=== PATIENT | male | born 1940 | race Caucasian/White ===

== ENCOUNTER 2016-11-23 18:53 | Emergency (ER) | payer OTHER ==
[~2016-11-23] VITALS: Ht 180.3 cm; Wt 107.2 kg
[~2016-11-23 18:53] MED LIST: BIMA0.01 OPB; FINA5TAB PO; LISI-729 PO; TAMS0.4C38 PO; VGMOPS OP
[2016-11-23 19:00] VITALS: TEMP 36.7; Ht 180.3 cm; Wt 107.2 kg
--- NOTE | 2016-11-23 19:56 | EMERGENCY ROOM VISIT NOTE ---
ED Visit Note First contact with patient: 19:16 I have seen and examined this patient with Aubrey Tipton and generally agree with the treatment plan as discussed. 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 (PCP) Patient Instructions My [facility]
--- NOTE | 2016-11-23 20:00 | DIAGNOSTIC IMAGING REPORT ---
RIGHT SHOULDER MIN 2 VIEWS ROUTINE CLINICAL HISTORY: Right shoulder pain following fall. COMPARISON: None FINDINGS: Alignment of the right shoulder is anatomic. There is moderate AC joint arthritis and mild glenohumeral joint arthritis. Irregularity of the greater tuberosity is likely chronic. No acute fracture is identified. A few small nodular densities projecting over the right lung are likely benign and may be calcified. IMPRESSION: 1. No acute fracture or dislocation of the right shoulder. 2. Moderate arthritis of the acromioclavicular joint and mild arthritis of the glenohumeral joint. Electronically signed by: Sandeep Knight M.D. 11/23/2016 7:59 PM Dictated Date/Time: 11/23/2016 7:57 PM
--- NOTE | 2016-11-23 20:10 | EMERGENCY ROOM VISIT NOTE ---
ED Visit Note First contact with patient: 19:16 CHIEF COMPLAINT: Right shoulder pain after a fall today HISTORY OF PRESENT ILLNESS: Patient is a [id number] 76-year-old white male brought to the emergency department by his family for evaluation of right shoulder pain after he fell a couple of hours ago. He was walking up the ramp to his porch when he states that he lost his balance and fell. He landed, striking his nose on his lip and his right shoulder. He did not lose consciousness. He complains of pain in the right upper arm, that is worse with any attempts at movement. He did not take any medication, nor perform any intervention for his symptoms. He had bleeding from the right bottom lip which has subsequently been controlled. There is no epistaxis. He denies headache. No neck pain, lightheadedness, dizziness, difficulty with balance, speech or coordination. The patient had to be helped up by his son. He rates his shoulder pain and 8/10. REVIEW OF SYSTEMS: Review of systems as per HPI. All other systems reviewed were negative. At least 6 systems reviewed. PMH: Electronic medical records are reviewed and summarized as above/below. See Problem List. SOCIAL HISTORY: Patient lives at home. Former smoker. PHYSICAL EXAM: Vital Signs: Reviewed nurse's notes. CONSTITUTIONAL: Patient is a pleasant, well-appearing 76-year-old white male who is awake and alert and in no acute distress. HEENT: Normocephalic, atraumatic. Pupils equal, round, reactive to light and accommodation. EOMs intact without nystagmus. Sclera are anicteric. Tympanic membranes intact, with normal landmarks. External canals are clear. Oral and nasopharynx are clear. Mucous membranes are moist. He has a slight area of ecchymosis and a small, nonrepairable split in the right bottom lip. HEART: Regular rate and rhythm. LUNGS: Clear to auscultation. MUSCULOSKELETAL: Examination of the right shoulder does not demonstrate any obvious deformity. Skin is intact without ecchymosis, erythema or abrasion. There is no pain over the clavicle or the acromioclavicular joint. He does not have any pain over the rotator cuff insertion. His pain is actually more in the proximal humerus region, around the neck. He has pain with passive internal and external rotation, and any attempt at forward flexion or abduction. Elbow is nontender. No effusion is palpable. He can flex, extend, pronate and supinate fully without difficulty. No wrist tenderness to palpation. The right upper extremity is neurovascularly intact. EMERGENCY DEPARTMENT COURSE: X-rays of the right shoulder were obtained and negative for any acute fracture. Degenerative changes were noted. Patient was fitted with an arm sling to use just as needed for comfort. Gentle range of motion exercises were encouraged to minimize the risk of developing a frozen shoulder. He was encouraged to ice, and use [id number] medications for discomfort. He can follow-up with orthopedics if he does not feel that his symptoms are improving. Differential diagnosis includes contusion, fracture, dislocation, bursitis, tendinitis, among others. RIGHT SHOULDER MIN 2 VIEWS ROUTINE CLINICAL HISTORY: Right shoulder pain following fall. COMPARISON: None FINDINGS: Alignment of the right shoulder is anatomic. There is moderate AC joint arthritis and mild glenohumeral joint arthritis. Irregularity of the greater tuberosity is likely chronic. No acute fracture is identified. A few small nodular densities projecting over the right lung are likely benign and may be calcified. IMPRESSION: 1. No acute fracture or dislocation of the right shoulder. 2. Moderate arthritis of the acromioclavicular joint and mild arthritis of the glenohumeral joint. 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 Surgical Problems: (1) Amputation Finger Status: Resolved (2) Lens Replacement Nec Status: Resolved Current/Historical Medications Scheduled Finasteride (Proscar), 5 MG PO HS Lisinopril (Prinivil), 5 MG PO HS Tamsulosin Hcl (Flomax), 0.4 MG PO HS Scheduled PRN Diphenhydramine Hcl (Benadryl), 50 MG PO Q4H PRN for ALLERGIC REACTION Allergies Coded Allergies: No Known Allergies (Unverified , 11/23/16) Vital Signs Date Time Temp Pulse Resp B/P Pulse Ox O2 Delivery O2 Flow Rate FiO2 11/23/16 19:00 36.7 82 18 178/66 95 Room Air Departure Information Impression Primary Impression: Contusion of right shoulder Additional Impression: Fall Referrals Leon De Paz, D.O. (PCP) Patient Instructions [facility] Additional Instructions Ibuprofen(Motrin, Advil) may be used for fever or pain. Use 600mg every six hours as needed. Take with food. Avoid using more than 2400mg in a 24 hour period. Do not use 2400mg per day for more than three consecutive days without physician direction. Prolonged inappropriate use can lead to stomach upset or ulcers. This medication can be taken if you need to drive, work, or perform activities which may be dangerous when taking narcotic pain medication. (AND/OR) Acetaminophen(Tylenol) may be used for fever or pain. Use 1000mg every six hours as needed. Avoid using more than 3000mg in a 24 hour period. This medication can be taken if you need to drive, work, or perform activities which may be dangerous when taking narcotic pain medication. Ice compresses for 20 minutes at a time four times daily for 2-3 days. Use the sling as instructed. Remove your arm from the sling 4-6 times a day and move all the joints around to keep them loose. Rest and elevate your injury. Continue current medications. Return to the ER immediately for any numbness, tingling, severe pain, extreme swelling in the extremity or as needed. Follow-up with your primary care provider or with orthopedics if your symptoms are not improving in 5-7 days. Problem Qualifiers
[2016-11-23] MEDS ORDERED: BND25 PO (20:21)
[2016-11-23 20:47] VITALS: BP 168/65; PULSE 78; O2SAT 96
[2017-01-16] MEDS ORDERED: LISI-725 PO (10:34)
[2017-01-16] MEDS ORDERED: IBUP-103 PO (10:35)
[2017-01-26] MEDS ORDERED: RXC5 PO (08:53)
== END 2016-11-23 20:48 | disposition home or self-care (01) ==
LOC: C.EDB 18:53 → C.EDD 20:48
DX: S40.011A Contusion of right shoulder, initial encounter (principal); W01.0XXA Fall on same level from slipping, tripping and stumbling without subsequent striking against object, initial encounter; Y92.019 Unspecified place in single-family (private) house as the place of occurrence of the external cause; I10 Essential (primary) hypertension; Z89.029 Acquired absence of unspecified finger(s); Z98.49 Cataract extraction status, unspecified eye; Z79.899 Other long term (current) drug therapy; Z87.891 Personal history of nicotine dependence

== ENCOUNTER → 2017-01-02 | Outpatient (CLI) | payer OTHER ==
[~2017-01-02] MED LIST changes: -BIMA0.01 OPB; +BND25 PO; +IBUP-103 PO; +LISI-725 PO; +RXC5 PO; -VGMOPS OP
--- NOTE | 2017-01-02 10:23 | DIAGNOSTIC IMAGING REPORT ---
ORBIT RADIOGRAPHS 3 VIEWS HISTORY: Pre-MRI pre-MRI screening. COMPARISON: None. FINDINGS: There are no radiopaque foreign bodies identified within the orbits. IMPRESSION: No radiopaque foreign bodies identified within the orbits. Electronically signed by: Ab Titus M.D. 01/02/2017 10:21 AM Dictated Date/Time: 01/02/2017 10:21 AM
--- NOTE | 2017-01-02 12:12 | DIAGNOSTIC IMAGING REPORT ---
MRI right shoulder RIGHT UPPER EXT JOINT WITHOUT CLINICAL HISTORY: R SHOULDER PAIN Right trauma. Pain. TECHNIQUE: MRI multi axial acquisition COMPARISON STUDY: None FINDINGS: Compromise exam due to significant patient motion. A joint effusion is present. Mild edematous changes seen lateral aspect humeral head deep to the supraspinatus tendon insertion. There is evidence for full-thickness rotator cuff tear involving the supraspinatus tendon. Musculotendinous retraction of approximately 4 cm. There are moderate hypertrophic changes of the acromioclavicular joint. There is a partial tear of the subscapularis tendon. Considerable tendinopathy is present. Infraspinatus tendon shows mild tendinopathy. Evaluation of the labrum is problematic again due to patient motion. There is loss of substance of the posterior glenoid labrum with significant deterioration of the superior margin of the labrum. Inferior labrum also shows partial truncation. There is moderate superior migration of the humeral head relation to the acromion. IMPRESSION: 1. Somewhat limited exam due to considerable patient motion. 2. Full-thickness tear supraspinatus tendon with 4 cm musculotendinous retraction. 3. Moderate superior migration of the femoral head now in contact with the inferior surface of the acromion. 4. Partial thickness tear subscapularis tendon. 5. Mild tendinopathy of the infraspinatus tendon. 6. Deterioration of the glenoid labrum with substance loss posteriorly and considerable deterioration of the anterior and to a lesser extent inferior labral services Electronically signed by: Ab Titus M.D. 01/02/2017 12:11 PM Dictated Date/Time: 01/02/2017 12:05 PM
== END | disposition home or self-care (01) ==
LOC: C.RADBC 09:46
PROVIDERS: ATTEND Orthopaedic Surgery
DX: M75.101 Unspecified rotator cuff tear or rupture of right shoulder, not specified as traumatic (principal)

== ENCOUNTER 2017-01-25 06:45 | Inpatient (IN) | payer OTHER ==
[2017-01-16 10:36] VITALS: BMI 32.0
--- NOTE | 2017-01-16 11:17 | PAT Medication Instructions ---
Service Date Jan 16, 2017. Current Home Medication List Diphenhydramine Hcl (Benadryl), 50 MG PO Q4H PRN for ALLERGIC REACTION Finasteride (Proscar), 5 MG PO HS Ibuprofen Tab (Advil), 200-400 MG PO PRN Lisinopril (Zestril), 20 MG PO QPM Tamsulosin Hcl (Flomax), 0.4 MG PO HS Medication Instructions For Your Scheduled Surgery - Hold the following medications evening prior to surgery: Lisinopril (Zestril), 20 MG PO QPM - Hold the following medications the morning of surgery: Diphenhydramine Hcl (Benadryl), 50 MG PO Q4H PRN for ALLERGIC REACTION Ibuprofen Tab (Advil), 200-400 MG PO PRN (takes occasionally) - Take the following medications as scheduled the night before surgery: Tamsulosin Hcl (Flomax), 0.4 MG PO HS Finasteride (Proscar), 5 MG PO HS Diphenhydramine Hcl (Benadryl), 50 MG PO Q4H PRN for ALLERGIC REACTION If you have any questions please call us at [phone] or [phone] ( [place]) or [phone]
[2017-01-16 12:09] LABS: BASO % 0.7 %; BASO ABS # 0.05 K/uL (0-0.2); COMPLETE YES; EOS % 3.3 %; HEMATOCRIT 44.2 % (42-52); IG% 0.3 %; LYMPH % 26.2 %; LYMPH ABS # 1.85 K/uL (1.2-3.4); MEAN CORPUSCULAR HEMOGLOBIN 31.4 pg (25-34); MEAN CORPUSCULAR HGB CONC 34.8 g/dl (32-36); MONO % 6.6 %; NEUT % 62.9 %; PLATELET COUNT 155 K/uL (130-400); RED BLOOD COUNT 4.91 M/uL (4.7-6.1); WHITE BLOOD COUNT 7.07 K/uL (4.8-10.8)
[2017-01-16 12:20] LABS: PARTIAL THROMBOPLASTIN RATIO 1.1; PROTHROMBIN TIME (PATIENT) 10.7 SECONDS (9.0-12.0)
--- NOTE | 2017-01-16 12:20 | DIAGNOSTIC IMAGING REPORT ---
CHEST 2 VIEWS ROUTINE CLINICAL HISTORY: Preoperative chest COMPARISON STUDY: No previous studies for comparison. FINDINGS: The heart is at the upper limits of normal in size. There is no failure. There is no lobar consolidation. There are no pleural effusions. There is a 7 mm rounded density at the left lung base. While nonspecific, this likely represents a summation or postinflammatory nodule.[ IMPRESSION: Nonspecific 7 mm opacity at the left lung base, likely are presenting a summation or postinflammatory nodule. A three-month follow-up chest x-ray would seem prudent Electronically signed by: Laith Rai M.D. 01/16/2017 12:19 PM Dictated Date/Time: 01/16/2017 12:17 PM
[2017-01-16 12:27] LABS: BUN/CREATININE RATIO 15.3 (10-20); CREATININE 1.2 mg/dl (0.60-1.40); POTASSIUM 4.2 mmol/L (3.5-5.1)
[2017-01-16 12:36] LABS: URINE APPEARANCE CLEAR (CLEAR); URINE BILIRUBIN NEG (NEG); URINE COLOR YELLOW; URINE NITRITE NEG (NEG); URINE SPECIFIC GRAVITY 1.024 (1.000-1.030); UROBILINOGEN NEG (NEG)
[2017-01-16 13:00] LABS: MANUAL MICROSCOPIC REQUIRED? NO; REVIEW REQ? NO
--- NOTE | 2017-01-24 15:16 | HISTORY & PHYSICAL EXAMINATION ---
DATE OF ADMISSION: 01/25/2017 CHIEF COMPLAINT: Cuff arthropathy of the right shoulder. HISTORY OF PRESENT ILLNESS: Milton is a pleasant 76-year-old male who initially injured his shoulder several years ago. He had little pain at that time. Unfortunately, on 11/23/2016 he reinjured his shoulder after a fall. He has had the inability to raise his arm and significant pain in his shoulder. Initial conservative treatment was not helping. MRI of the shoulder did show a chronic retracted rotator cuff tear with severe atrophy of the muscle bellies. He has elected to proceed with a reverse right shoulder arthroplasty. He understands the risks, benefits, alternatives to the procedure and has elected to proceed. PAST MEDICAL HISTORY: Significant for hypertension and osteoarthritis. MEDICATIONS: Include Zestril 20 mg daily, Proscar 5 mg daily, and Flomax 0.4 mg daily. PAST SURGICAL HISTORY: Significant for 5 hernia repairs and hand surgery requiring small amputation of 3 of his fingers. ALLERGIES: None. FAMILY HISTORY: Noncontributory. SOCIAL HISTORY: He denies any tobacco, alcohol or IV drug use. REVIEW OF SYSTEMS: He complains of right shoulder pain. All other pertinent review of systems are negative. PHYSICAL EXAMINATION: GENERAL: He is awake, alert and oriented x3. He is in no apparent distress. He is very pleasant. HEAD, EYES, EARS, NOSE, AND THROAT: Pupils equal, round and reactive to light. Extraocular motion intact. Oral mucosa is pink and moist. HEART: Regular rate per radial pulse. LUNGS: Lamar symmetrically bilaterally with no audible breath sounds. ABDOMEN: Soft, nontender, nondistended. MUSCULOSKELETAL: On physical examination of his shoulder, he has only about 30 degrees of forward elevation, 30 degrees of abduction. He has 3/5 muscle strength with external rotation and I am unable to do full can testing with him because of his pain. He has a lot of tenderness to palpation in the subacromial space. X-rays of the right shoulder show the humeral head generally well located within the glenoid with minimal arthritis. MRI of the right shoulder shows a massive rotator cuff tear involving the supraspinatus, infraspinatus and part of the subscapularis. There is severe atrophy of the muscle bellies. IMPRESSION: Cuff arthropathy of the right shoulder. PLAN: Will proceed with a comprehensive right reverse total shoulder arthroplasty. Postoperatively, he will be placed in an arm sling and kept overnight for postoperative medical management. MTDD
[~2017-01-25] VITALS: Ht 180.3 cm; Wt 106.0 kg
[2017-01-25] VITALS (8 sets, daily range): BP systolic 129–172; BP diastolic 76–86; PULSE 62–96; TEMP 36.4–36.7; O2SAT 92–97; Ht 180.3 cm; Wt 106.0 kg
[~2017-01-25 06:45] MED LIST changes: +ACETAMINOPHEN 500 MG TAB PO SCH; -BND25 PO; +BUPIVACAINE 0.5 % 5 MG/1 ML PF 10ML VIAL ONE; +CEFAZOLIN 2000 MG/60 ML D5W 60 ML IV SCH; +CLONIDINE HCL 100 MCG/ML SYRINGE ONE; +DIPH25CA5 PO; +FAMOTIDINE 20 MG TAB PO SCH; +GABAPENTIN 300 MG CAP PO SCH; +LACTATED RINGER'S 1000ML 1,000 ML IV SCH; +LACTATED RINGER'S 1000ML IV SCH; -LISI-729 PO; +MEPIVACAINE HCL 1.5% 30 ML VIAL ONE; +ROPIVACAINE 5MG/ML 30 ML 150 MG, BUPIVACAINE/EPINEPHR 0.5% MPF 30 ML, KETOROLAC TROMETH... INFIL SCH; -RXC5 PO
--- NOTE | 2017-01-25 07:05 | History & Physical Bridge Note ---
H&P Re-Evaluation Bridge Note: I have examined the patient, reviewed the History & Physical and in the interval since the performance of the History & Physical I have noted the following changes of clinical significance: No changes noted
[2017-01-25] MEDS ORDERED: ROCURONIUM BROMIDE 10 MG/ML 5 ML VIAL ONE ×3 (07:58→11:04)
[2017-01-25] MEDS ORDERED: MIDAZOLAM HCL 1 MG/ML 2ML VIAL ONE ×3 (07:58→09:29)
[2017-01-25] MEDS ORDERED: FENTANYL CITRATE INJ 50 MCG/1 ML 2 ML VIAL ONE ×4 (07:58→12:13)
[2017-01-25] MEDS ORDERED: LIDOCAINE HCL 2% 2 ML VIAL (20MG/ML) ONE ×2 (07:58→09:29)
[2017-01-25] MEDS ORDERED: PROPOFOL IV EMULSION 10 MG/ML 20 ML VIAL IV ONE ×2 (07:58→09:29)
[2017-01-25] MEDS ORDERED: PHENYLEPHRINE 100MCG/ML 5ML SYR ONE ×2 (08:38→10:33)
[2017-01-25] MEDS ORDERED: ORTHO JOINT ANESTHETIC ONE (09:18)
[2017-01-25] MEDS ORDERED: BACITRACIN 50000 UNIT VIAL ONE (09:19)
[2017-01-25] MEDS ORDERED: DEXAMETHASONE SOD INJ 4 MG/ML VIAL ONE (09:29)
[2017-01-25] MEDS ORDERED: NEOSTIGMINE METHYLSULFATE 5 MG/5 ML SYR ONE (09:29)
[2017-01-25] MEDS ORDERED: GLYCOPYRROLATE INJ 0.2 MG/ML VIAL ONE ×2 (09:29→11:40)
[2017-01-25] MEDS ORDERED: ONDANSETRON INJ 2 MG/ML 2 ML VIAL ONE (09:29)
[2017-01-25] MEDS: TRANEXAMIC ACID INJ 1,000 MG in SODIUM CHLORIDE 0.9% 100ML 100 ML IV SCH ×2 (09:30→13:48)
[2017-01-25] MEDS ORDERED: LARYING-O-JET KIT (LTA) EXT ONE ×2 (09:34)
[2017-01-25] MEDS ORDERED: FLUMAZENIL 0.1 MG/1 ML 10 ML VIAL IV PRN (10:15)
[2017-01-25] MEDS ORDERED: ONDANSETRON INJ 2 MG/ML 2 ML VIAL IV PRN ×2 (10:15→11:30)
[2017-01-25] MEDS ORDERED: ALBUTEROL 0.083% NEBU SOLN 3 ML VIAL INH PRN (10:15)
[2017-01-25] MEDS ORDERED: EpHEDrine SULFATE INJ 50 MG/ML AMP IV PRN (10:15)
[2017-01-25] MEDS ORDERED: ATROPINE SULFATE 0.1 MG/ML 5ML SYR IV PRN (10:15)
[2017-01-25] MEDS ORDERED: NALOXONE HCL 0.4 MG/1 ML VIAL/CARP IV PRN ×2 (10:15→11:30)
[2017-01-25] MEDS ORDERED: PROMETHAZINE HCL INJ 12.5 MG in SODIUM CHLORIDE 0.9% 50ML 50 ML IV PRN (10:15)
[2017-01-25] MEDS ORDERED: LABETALOL HCL IV 5 MG/ML 20ML IV PRN (10:15)
[2017-01-25] MEDS ORDERED: EpHEDrine SULFATE 50MG/5ML SYR ONE (10:33)
--- NOTE | 2017-01-25 11:29 | [facility] Post Operative Brief Note ---
Immediate Operative Summary Operative Date Jan 25, 2017. Pre-Operative Diagnosis Cuff arthropathy of the right shoulder. Post-Operative Diagnosis Cuff arthropathy of the right shoulder. Procedure(s) Performed Right Total Shoulder Arthroplasty Reverse Surgeon Dr. Griggs Sr. Strategic Sourcing Manager Surgeon(s) Kwame Mcmahan PA-C Estimated Blood Loss 250 cc Findings as above Specimens A: Right humeral head Complication(s) None Disposition Recovery Room / PACU
[2017-01-25] MEDS ORDERED: METOCLOPRAMIDE HCL INJ 5 MG/ML 2 ML VIAL IV PRN (11:30)
[2017-01-25] MEDS ORDERED: BISACODYL 10 MG SUPP PR PRN (11:30)
[2017-01-25] MEDS ORDERED: MoRPHine SULFATE 2 MG/ML CARP IV PRN (11:30)
[2017-01-25] MEDS ORDERED: SOD PHOSPHATE/SOD BIPHOSPHATE ENEMA 132 ML BTL PR PRN (11:30)
[2017-01-25] MEDS ORDERED: MAGNESIUM HYDROXIDE SUSP 30 ML UDC PO PRN (11:30)
--- NOTE | 2017-01-25 12:22 | OPERATIVE REPORT ---
DATE OF OPERATION: 01/25/2017 PREOPERATIVE DIAGNOSIS: Rotator cuff arthropathy of the right shoulder. POSTOPERATIVE DIAGNOSIS: Same. PROCEDURE: Reverse right total shoulder arthroplasty. SURGEON: Dr. Daryn Griggs. GRAIN LOADER: Kwame Mcmahan PA-C, whose assistance was necessary for positioning the arm and helping with instrumentation. ANESTHESIA: General with a right interscalene nerve block. COMPLICATIONS: None. CONDITION: Stable to PACU. IMPLANTS USED: I used a [employer] comprehensive reverse right total shoulder arthroplasty with a size 16 mini stem, a 25-mm mini baseplate, a 36-mm standard eccentric glenoid, a 41-mm tray and a 41 x 36 bearing. No cement was used during the case. INDICATIONS: Milton is a pleasant 76-year-old male who has been dealing with some chronic shoulder pain. Unfortunately, he fell and he has been unable to forward elevate his shoulder. MRI and clinical examination were diagnostic for cuff arthropathy of the right shoulder. After failing conservative treatment, he elected to undergo a reverse shoulder arthroplasty. DESCRIPTION OF PROCEDURE: On 01/25/2017, he arrived at [facility] for the above procedure. He was seen in the preoperative holding area and the operative extremity was identified and signed. He was given a preoperative antibiotic and a right interscalene nerve block. He was taken back to the operating room, laid on the table in supine position and put under general anesthesia. He was then put into the beach chair position. The right shoulder was prepped and draped in sterile fashion. Time-out was done and the patient and operative extremity was properly identified. A deltopectoral approach was used. Dissection was taken down through the fascia and the anterior shoulder was exposed. The subscapularis was tenotomized off the lesser tuberosity and the shoulder was dislocated. A canal finding reamer was sent down the center of the humeral canal. Sequential reaming up to a size 16 reamer was done. Off that reamer, a proximal humeral resection guide was placed and the proximal humerus was resected at 135 degrees of inclination and 20 degrees of retroversion. The glenoid was then exposed. Time was spent doing a complete circumferential capsular and labral release. A guide pin was then placed in the inferior position of the glenoid at 10 degrees of inclination. A 25-mm mini baseplate was then reamed. The final baseplate was then impacted into place. A 45-mm central screw was placed followed by two 35-mm peripheral locking screws. All screws had excellent bite. A 36-mm eccentric glenosphere was then impacted into place. The proximal humerus was then exposed. Sequential broaching up to a size 16 broach was done. A standard humeral tray was used. The shoulder was reduced, brought through a full range of motion and felt to be stable. The broach was removed. The final humeral stem was impacted into place. The humeral bearing was snapped into the humeral tray and the ring lock mechanism was engaged. The humeral tray was then snapped onto the humeral stem. The shoulder was then reduced, brought through a full range of motion and felt to be stable. The wound was then irrigated with 3 liters of normal saline solution with bacitracin. Surrounding soft tissues were injected with 100 mL of orthopedic pain control cocktail. The subscapularis was then tenodesed back to the lesser tuberosity with transosseous FiberWire sutures and [id number] sutures. The axillary nerve was palpated and intact. A drain was placed. Skin was closed with 2-0 Vicryl, 3-0 V-Loc suture and a Prineo dressing. He was then placed in a soft dressing and regular arm sling. He was then extubated, transferred to a litter and taken to the postanesthesia care unit in stable condition. He tolerated the procedure well. I attest to the content of the Intraoperative Record and any orders documented therein. Any exceptio ns are noted below.
--- NOTE | 2017-01-25 12:27 | DIAGNOSTIC IMAGING REPORT ---
RIGHT SHOULDER MIN 2 VIEWS ROUTINE CLINICAL HISTORY: Post shoulder surgery Right COMPARISON STUDY: Right shoulder 11/23/2016. FINDINGS: Interval placement of a reverse right total shoulder arthroplasty. The hardware appears intact. No fracture or dislocation. Surgical drain is in place. IMPRESSION: Status post reverse right total shoulder arthroplasty. No evidence for hardware complication. Electronically signed by: Jakob Cruz M.D. 01/25/2017 12:25 PM Dictated Date/Time: 01/25/2017 12:25 PM
--- NOTE | 2017-01-25 12:29 | Anesthesiology Progress Note ---
Anesthesia Post Op Note Date & Time Jan 25, 2017 at 12:28 Vital Signs Pain Intensity: 0 Vital Signs Past 12 Hours Date Time Temp Pulse Resp B/P Pulse Ox O2 Delivery O2 Flow Rate FiO2 01/25/17 12:20 136/85 01/25/17 12:18 87 16 93 01/25/17 12:18 87 16 01/25/17 12:16 143/74 01/25/17 12:13 89 21 01/25/17 12:13 87 21 95 01/25/17 12:12 89 18 01/25/17 12:12 89 18 93 01/25/17 12:10 141/80 01/25/17 12:07 94 20 01/25/17 12:07 93 20 94 01/25/17 12:05 155/88 01/25/17 12:02 94 22 141/77 95 01/25/17 12:02 94 22 01/25/17 11:58 153/83 01/25/17 11:57 101 19 01/25/17 11:57 36.1 98 18 153/83 96 Mask 10 01/25/17 11:57 101 19 96 01/25/17 09:25 36.7 75 18 168/87 99 Mask 10 01/25/17 07:32 36.7 62 18 172/83 97 Room Air 01/25/17 07:32 36.7 62 18 172/83 97 Room Air Notes Mental Status: alert / awake / arousable, participated in evaluation Pt Amnestic to Procedure: Yes Nausea / Vomiting: adequately controlled Pain: adequately controlled Airway Patency, RR, SpO2: stable & adequate BP & HR: stable & adequate Hydration State: stable & adequate Anesthetic Complications: no major complications apparent
[2017-01-25] MEDS: D5W AND 1/2NSS + 20MEQ KCL 1,000 ML IV SCH ×2 (14:16→23:52)
[2017-01-25] MEDS: KETOROLAC TROMETHAMINE 15 MG/ML VIAL IV. SCH ×2 (16:06→22:21)
[2017-01-25] MEDS: OXYCODONE HCL IR 5 MG TAB (IMMEDIATE RELEASE) PO PRN ×2 (16:07→20:35)
[2017-01-25] MEDS: CEFAZOLIN IV 2,000 MG in DEXTROSE 5% 50ML 50 ML IV SCH (17:59)
[2017-01-25] MEDS: DOCUSATE SODIUM 100 MG CAP PO SCH (20:36)
[2017-01-25] MEDS ORDERED: TAMSULOSIN HCL 0.4 MG CAP PO SCH (21:00)
[2017-01-25] MEDS ORDERED: SENNA 8.6 MG TAB PO SCH (21:00)
[2017-01-25] MEDS ORDERED: FINASTERIDE 5 MG TAB PO SCH (21:00)
[2017-01-25] MEDS ORDERED: LISINOPRIL 20 MG TAB PO SCH (21:00)
[2017-01-25] MEDS: ACETAMINOPHEN IV 1,000 MG in EMPTY BAG 0 ML IV SCH (22:22)
[2017-01-26] MEDS: CEFAZOLIN IV 2,000 MG in DEXTROSE 5% 50ML 50 ML IV SCH (02:12)
[2017-01-26] MEDS: KETOROLAC TROMETHAMINE 15 MG/ML VIAL IV. SCH ×2 (03:45→10:00)
[2017-01-26 04:00] VITALS: BP 133/66; PULSE 61; TEMP 36.5; O2SAT 97
[2017-01-26] MEDS: ACETAMINOPHEN IV 1,000 MG in EMPTY BAG 0 ML IV SCH (05:31)
[2017-01-26 05:44] LABS: HEMATOCRIT 38.1 % (42-52); MEAN CORPUSCULAR HEMOGLOBIN 31.3 pg (25-34); MEAN PLATELET VOLUME 10.2 fL (7.4-10.4); PLATELET COUNT 157 K/uL (130-400); RED BLOOD COUNT 4.38 M/uL (4.7-6.1); WHITE BLOOD COUNT 15.17 K/uL (4.8-10.8)
[2017-01-26 06:09] LABS: BUN/CREATININE RATIO 11.2 (10-20); CALCIUM 8.1 mg/dl (8.5-10.1); CREATININE 1.2 mg/dl (0.60-1.40); POTASSIUM 4.3 mmol/L (3.5-5.1)
[2017-01-26 07:44] VITALS: BP 145/67; PULSE 63; TEMP 36.4; O2SAT 97
[2017-01-26] MEDS: DOCUSATE SODIUM 100 MG CAP PO SCH (08:37)
[2017-01-26] MEDS ORDERED: RXC5 PO (08:53)
--- NOTE | 2017-01-26 08:54 | Discharge Instructions ---
Discharge Instructions Date of Service Jan 26, 2017. Admission Reason for Admission: Right Shoulder Full Thickness Rotator Cuff Tear Discharge Discharge Diagnosis / Problem: Right Reverse Total Shoulder Discharge Goals Goal(s): Decrease discomfort, Improve function Activity Recommendations Activity Limitations: as noted below Shower/Bathe: may shower/bathe in 3 days . Instructions / Follow-Up Instructions / Follow-Up Activity and Therapy Recommendations: * Wear your sling for 3 weeks, unless otherwise instructed. You may remove your sling to shower and to dress, but otherwise, you should be in your sling at all times, including while sleeping * The shoulder replacement is very stable and you can use your hand while in the sling * Physical Therapy should start about 3-5 days from your day of surgery. Therapy will last about 8-12 weeks * You were shown a series of exercises in the hospital. Do these exercises daily including the exercises you were shown in physical therapy. Medications: * Narcotic You will likely be sent home from the hospital with a prescription for the narcotic pain medication that worked best throughout your stay. * Other medications may be prescribed for specific circumstances. If you have any questions, please call the office at . * Resume previous home medications unless otherwise instructed Dressing Care: You will likely have a Prineo dressing covering your incision. This looks like a glued on clear mesh dressing. Do not remove this dressing until you follow- up in my office in 2-3 weeks. Its pretty hard to peel it off. You may leave the Prineo dressing uncovered or cover it if it is draining a little bit. No further dressing care is required Showering: You may shower 3 days from the day of surgery. Leave the Prineo dressing intact and let the soapy shower water run over it. Do not scrub or soak the dressing or the incision. Things To Watch For: * Drainage from the incision site that occurs more than one week after your surgery. * Increased redness at the incision site. * Fever above 102 degrees Fahrenheit. * Unusual chest pain or shortness of breath. * Call [facility] at with any of the above problems Follow-Up Visit: Follow-up with Dr. Griggs 2-3 weeks after your day of surgery. An appointment was probably scheduled when you signed-up for surgery in the office. If you have any questions call Office Instructions: More detailed instructions as well as Frequently Asked Questions were provided in a folder by our office when you signed-up for surgery. Please review these instructions when you get home. If you have any further questions or concerns, please feel free to call the office at [phone] Current Hospital Diet Patient's current hospital diet: Regular Diet Discharge Diet Recommended Diet: Regular Diet Procedures Procedures Performed: Right Total Shoulder Arthroplasty Reverse Pending Studies Studies pending at discharge: no Medical Emergencies . Who to Call and When: Medical Emergencies: If at any time you feel your situation is an emergency, please call 911 immediately. . Non-Emergent Contact Non-Emergency issues call your: Surgeon Call Non-Emergent contact if: wound has increased drainage, wound has increased redness . "Provider Documentation" section prepared by Daryn Griggs. VTE Core Measure Inpt VTE Proph given/why not?: Treatment not indicated
[2017-01-26] MEDS ORDERED: PANTOprazole SOD 40 MG TAB PO SCH (09:00)
--- NOTE | 2017-01-26 09:18 | PROGRESS NOTE ---
DATE: 01/26/2017 DATE: 01/26/2017. CHIEF COMPLAINT: Status post reverse right total shoulder arthroplasty postop day #1. PROGRESS: Milton was seen and examined at bedside today. Overall, he is doing very well. He was sitting up at bedside eating breakfast. He said he was not having much pain at all in the shoulder. He is happy with his progress and has no complaints. PHYSICAL EXAMINATION: RIGHT SHOULDER: The dressing is clean and dry and the drain is to suction. His radial, median and ulnar nerves were checked and intact. His axillary nerve was not checked yet. He is wearing his sling as instructed. LABORATORY DATA: He has an H\T\H today of 13.7 and 38.1. His glucose is 161. His vital signs are all stable on room air and he is voiding on his own. X-RAYS: Radiographs postoperatively of the right shoulder show the prosthesis to be in anatomic alignment without any evidence of fracture, dislocation or loosening. IMPRESSION: Status post reverse right total shoulder arthroplasty postop day #1. PLAN: At this point, he is doing as well as expected. He will be seen by physical therapy this morning and do hand, wrist, elbow and pendulum exercises. The nursing staff will change the dressing, pull the drain and as long as he is doing well, he will be discharged to home later this morning.
--- NOTE | 2017-01-26 09:38 | DISCHARGE SUMMARY ---
DISCHARGE DIAGNOSIS: Cuff arthropathy of the right shoulder. PROCEDURE: Reverse right total shoulder arthroplasty on 01/25/[address] Daryn Griggs. DISCHARGE INSTRUCTIONS: 1. Oxycodone 5-10 mg every 4 hours as needed for pain. 2. Benadryl 25 mg every 4 hours as needed for allergies. 3. Proscar 5 mg at night. 4. Advil 200 mg as needed. 5. Zestril 20 mg daily. 6. Flomax 0.4 mg at night. 7. Right arm sling for 3 weeks. 8. Follow up with Dr. Griggs in 2 weeks. 9. Call the office of Dr. Griggs with any questions or concerns. HOSPITAL COURSE: Milton is a pleasant 76-year-old male who presented to my office with complaints of pain and pseudoparalysis of his right upper extremity. MRI and clinical examination were diagnostic for cuff arthropathy of the right shoulder. After failing conservative treatment, he elected to undergo a reverse right shoulder arthroplasty. On 01/25/2017 he arrived at [facility] for the above procedure. He was seen in the preoperative holding area and the operative extremity was identified and signed. He was given a preoperative antibiotic, taken back to the operating room and underwent a reverse right shoulder arthroplasty without complications. He was then placed in an arm sling and discharged to general orthopedic floors. His hospital course was uneventful. On postop day #1, his H\T\H was stable at 13.7 and 38.1. His pain was well controlled. He was seen by physical therapy and able to do hand, wrist, elbow and pendulum exercises. His dressing was changed, his drain was pulled and he was subsequently discharged to home with the above instructions.
[2017-01-26 09:55] VITALS: BP 117/62; PULSE 68; O2SAT 96
[2017-01-26 10:18] VITALS: BP 117/62; PULSE 68; TEMP 36.4; O2SAT 96
[2017-01-26] MEDS: OXYCODONE HCL IR 5 MG TAB (IMMEDIATE RELEASE) PO PRN (10:56)
== END 2017-01-26 11:04 | disposition home or self-care (01) | DRG 483 ==
LOC: ENRESERVDT → ENRESERVTM → C.ACU 06:45 → C.3E 07:45
PROVIDERS: ADMIT Orthopaedic Surgery; ATTEND Orthopaedic Surgery
PROC: 0RRJ00Z Replacement of Right Shoulder Joint with Reverse Ball and Socket Synthetic Substitute, Open Approach (ICD-10-PCS; principal; 2017-01-25 09:30)
DX: M19.011 Primary osteoarthritis, right shoulder (principal); I10 Essential (primary) hypertension; Z79.899 Other long term (current) drug therapy

== ENCOUNTER 2018-01-02 11:44 | Emergency (ER) | payer OTHER ==
[~2018-01-02 11:44] MED LIST changes: -ACETAMINOPHEN 500 MG TAB PO SCH; -BUPIVACAINE 0.5 % 5 MG/1 ML PF 10ML VIAL ONE; -CEFAZOLIN 2000 MG/60 ML D5W 60 ML IV SCH; -CLONIDINE HCL 100 MCG/ML SYRINGE ONE; -FAMOTIDINE 20 MG TAB PO SCH; -GABAPENTIN 300 MG CAP PO SCH; -LACTATED RINGER'S 1000ML 1,000 ML IV SCH; -LACTATED RINGER'S 1000ML IV SCH; -MEPIVACAINE HCL 1.5% 30 ML VIAL ONE; -ROPIVACAINE 5MG/ML 30 ML 150 MG, BUPIVACAINE/EPINEPHR 0.5% MPF 30 ML, KETOROLAC TROMETH... INFIL SCH; +RXC5 PO
[2018-01-02 11:45] VITALS: TEMP 36.8; Ht 180.3 cm
[2018-01-02] MEDS ORDERED: SODIUM CHLORIDE 0.9% 1000ML 1,000 ML IV STA (12:05)
[2018-01-02] MEDS ORDERED: WLLSR150 PO (12:06)
[2018-01-02 12:22] LABS: BASO % 0.6 %; BASO ABS # 0.06 K/uL (0-0.2); EOS % 1.7 %; EOS ABS # 0.17 K/uL (0-0.5); HEMATOCRIT 47.7 % (42-52); HEMOGLOBIN 16.7 g/dL (14.0-18.0); IG# 0.02 K/uL (0.00-0.02); LYMPH % 20.3 %; MEAN CELL VOLUME 90.3 fL (80-100); MEAN CORPUSCULAR HEMOGLOBIN 31.6 pg (25-34); MEAN PLATELET VOLUME 10.8 fL (7.4-10.4); MONO ABS # 0.59 K/uL (0.11-0.59); NEUT % 71.2 %; NEUT ABS # 6.99 K/uL (1.4-6.5); PLATELET COUNT 213 K/uL (130-400); RED CELL DISTRIBUTION WIDTH SD 42.5 fL (36.4-46.3); WHITE BLOOD COUNT 9.83 K/uL (4.8-10.8)
[2018-01-02 12:30] LABS: ALT/SGPT 37 U/L (12-78); BLOOD UREA NITROGEN 23 mg/dl (7-18); CALCIUM 9.1 mg/dl (8.5-10.1); CARBON DIOXIDE 25 mmol/L (21-32); CREATININE 1.48 mg/dl (0.60-1.40); GLUCOSE 104 mg/dl (70-99); LIPASE 174 U/L (73-393); POTASSIUM 3.8 mmol/L (3.5-5.1); SODIUM 141 mmol/L (136-145)
[2018-01-02] MEDS ORDERED: OPTIRAY 320 IV PRN (12:30)
[2018-01-02 12:35] LABS: ALKALINE PHOSPHATASE 80 U/L (45-117); AST/SGOT 20 U/L (15-37); TOTAL PROTEIN 7.6 gm/dl (6.4-8.2)
--- NOTE | 2018-01-02 12:36 | DIAGNOSTIC IMAGING REPORT ---
CHEST ONE VIEW PORTABLE CLINICAL HISTORY: 77 years-old Male presenting with ABDOMINAL PAIN/GI. TECHNIQUE: Portable upright AP view of the chest was obtained. COMPARISON: 01/16/2017. FINDINGS: Atherosclerosis of the aortic arch. Cardiac silhouette top normal in size. Previously noted nodular opacity in the left lung base is no longer visualized, and may have represented a nipple shadow on the prior exam. No new focal opacity. No large effusion or pneumothorax. Reverse total right shoulder arthroplasty. Degenerative changes of the spine. Upper abdomen normal. IMPRESSION: 1. No acute cardiopulmonary disease. This portable examination has a low sensitivity for pulmonary nodule. Electronically signed by: aJson Ramos M.D. 01/02/2018 12:31 PM Dictated Date/Time: 01/02/2018 12:29 PM
--- NOTE | 2018-01-02 15:31 | DIAGNOSTIC IMAGING REPORT ---
Brain MRI WITHOUT CONTRAST HISTORY: right facial droop TECHNIQUE: Multiplanar multisequence MRI of the brain was performed without the use of contrast. COMPARISON STUDY: None. FINDINGS: There is no mass, hematoma, midline shift, or acute infarct. The paranasal sinuses are clear. The mastoid air cells are clear. The ventricles and sulci demonstrate moderate age-related involutional changes. Patchy areas of T2 hyperintensity seen within the periventricular and subcortical white matter are nonspecific but suggestive of moderate microvascular ischemic changes. The major vascular flow voids at the skull base are well-maintained. Punctate hypointense focus within the left cerebellar hemisphere favors calcification. IMPRESSION: No acute intracranial abnormality. Patchy T2 hyperintensity seen within the periventricular and subcortical white matter is nonspecific but favors moderate microvascular ischemic change. Electronically signed by: Jakob Cruz M.D. 01/02/2018 3:30 PM Dictated Date/Time: 01/02/2018 3:24 PM
[2018-01-02] MEDS ORDERED: ARTIFICIAL TEARS OP OINT 3.5 GM TUBE OP STA (16:37)
[2018-01-02] MEDS ORDERED: ARTIFICIAL TEARS OP SOLN OP STA (16:37)
[2018-01-02] MEDS ORDERED: PRED20TA PO (16:44)
[2018-01-02] MEDS ORDERED: VALA1TAB31 PO (16:44)
[2018-01-02] MEDS ORDERED: ARTISOL12 OP (16:45)
[2018-01-02] MEDS ORDERED: ARTIOIN OP (16:45)
--- NOTE | 2018-01-02 16:48 | EMERGENCY ROOM VISIT NOTE ---
History Report prepared by Jesus: Jh Marrero Under the Supervision of: Dr. Terry Nieves M.D. First contact with patient: 11:49 Chief Complaint: STROKE SYMPTOMS Stated Complaint: STROKE SYMPTOMS Nursing Triage Summary: Last night at 1800 he developed difficulty closing his right eye. He began to drool from the right side of the mouth with drinking. Intermittent headache. He is unable to close the right eye. History of Present Illness The patient is a 77 year old male who presents to the Emergency Room with complaints of constant neurologic symptoms beginning last night (17 hours ago). His symptoms include right facial droop, and right facial numbness. He noticed his symptoms due to difficulty closing his right eye. The patient also complains of diarrhea beginning a few days ago, and intermittent headaches. He denies fevers, chills, nausea, vomiting, abdominal pain, cough, urinary symptoms , or dizziness. He notes that he had an ear ache a few weeks ago and was started on an antibiotic (stopped taking it prematurely last week due to upset stomach). The patient states that he has a history of generalized weakness, but denies any other new focal weakness. He denies any known tick bites or rashes. He is not on any blood thinners. Source of History: patient Onset: 17 hours ago Position: head (right face) Quality: other (weakness and numbness) Timing: constant Associated Symptoms: + headache (intermittent), + diarrhea, No fevers, No chills, No cough, No nausea, No vomiting, No abdominal pain, No urinary symptoms , No rash Note: Negative: dizziness. Review of Systems See HPI for pertinent positives and negatives. A total of ten systems were reviewed and were otherwise negative. 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 Social History Smoking Status: Current Every Day Smoker Marital Status: Current/Historical Medications Scheduled Artificial Tear Solution (Artificial Tears), 1 DROPS OP QID Artificial Tears Oph Oint (Lacri-Lube Sop Oph Oint), 0.25-0.5 INCH OP QID Bupropion HCl (Bupropion HCl Sr), 150 MG PO DAILY Finasteride (Proscar), 5 MG PO HS Lisinopril (Zestril), 20 MG PO QPM Prednisone (Prednisone), 0 PO DAILY Tamsulosin Hcl (Flomax), 0.4 MG PO HS Valacyclovir Hcl (Valtrex), 1 GM PO BID Allergies Coded Allergies: No Known Allergies (Verified , 01/25/17) Physical Exam Vital Signs Date Time Temp Pulse Resp B/P (MAP) Pulse Ox O2 Delivery O2 Flow Rate FiO2 01/02/18 16:58 66 20 127/84 96 Room Air 01/02/18 15:37 66 19 127/83 94 01/02/18 14:32 66 20 133/101 94 Room Air 01/02/18 14:23 63 21 01/02/18 12:03 77 01/02/18 11:45 36.8 80 20 145/88 97 Room Air Physical Exam GENERAL: Awake, alert, fatigued-appearing, in no distress HENT: Normocephalic, atraumatic. Oropharynx with dry MM and otherwise unremarkable. EYES: Mild right conjunctival injection. Mild right eye tearing. Sclera non- icteric. NECK: Supple. No nuchal rigidity. FROM. No JVD. RESPIRATORY: Clear to auscultation. CARDIAC: Regular rate, normal rhythm. Extremities warm and well perfused. Pulses equal. ABDOMEN: Soft, non-distended. No tenderness to palpation. No rebound or guarding. No masses. RECTAL: Deferred. MUSCULOSKELETAL: Chest examination reveals no tenderness. The back is symmetrical on inspection without obvious abnormality. There is no CVA tenderness to palpation. No joint edema. LOWER EXTREMITIES: Calves are equal size bilaterally and non-tender. No edema. No discoloration. NEURO: Normal sensorium. Mild hemiparesis of the right face. Unable to close right eye or wrinkle forehead on the right. 5/5 strengths in all extremities. Normal cerebellar function with [id number], alternating palms, [id number] SKIN: No rash or jaundice noted. Medical Decision & Procedures ER Provider Diagnostic Interpretation: Radiology results as stated below per my review and radiologist interpretation: CHEST ONE VIEW PORTABLE FINDINGS: Atherosclerosis of the aortic arch. Cardiac silhouette top normal in size. Previously noted nodular opacity in the left lung base is no longer visualized, and may have represented a nipple shadow on the prior exam. No new focal opacity. No large effusion or pneumothorax. Reverse total right shoulder arthroplasty. Degenerative changes of the spine. Upper abdomen normal. IMPRESSION: 1. No acute cardiopulmonary disease. This portable examination has a low sensitivity for pulmonary nodule. Electronically signed by: Jasno Ramos M.D. 01/02/2018 12:31 PM Brain MRI WITHOUT CONTRAST FINDINGS: There is no mass, hematoma, midline shift, or acute infarct. The paranasal sinuses are clear. The mastoid air cells are clear. The ventricles and sulci demonstrate moderate age-related involutional changes. Patchy areas of T2 hyperintensity seen within the periventricular and subcortical white matter are nonspecific but suggestive of moderate microvascular ischemic changes. The major vascular flow voids at the skull base are well-maintained. Punctate hypointense focus within the left cerebellar hemisphere favors calcification. IMPRESSION: No acute intracranial abnormality. Patchy T2 hyperintensity seen within the periventricular and subcortical white matter is nonspecific but favors moderate microvascular ischemic change. Electronically signed by: Jakob Cruz M.D. 01/02/2018 3:30 PM Laboratory Results 01/02/18 12:00 Red Blood Count 5.28, Mean Corpuscular Volume 90.3, Mean Corpuscular Hemoglobin 31.6, Mean Corpuscular Hemoglobin Concent 35.0, Mean Platelet Volume 10.8, Neutrophils (%) (Auto) 71.2, Lymphocytes (%) (Auto) 20.3, Monocytes (%) (Auto) 6.0, Eosinophils (%) (Auto) 1.7, Basophils (%) (Auto) 0.6, Neutrophils # (Auto) 6.99, Lymphocytes # (Auto) 2.00, Monocytes # (Auto) 0.59, Eosinophils # (Auto) 0.17, Basophils # (Auto) 0.06 01/02/18 12:00 Test 01/02/18 12:00 White Blood Count 9.83 K/uL (4.8-10.8) Red Blood Count 5.28 M/uL (4.7-6.1) Hemoglobin 16.7 g/dL (14.0-18.0) Hematocrit 47.7 % (42-52) Mean Corpuscular Volume 90.3 fL (80-100) Mean Corpuscular Hemoglobin 31.6 pg (25-34) Mean Corpuscular Hemoglobin Concent 35.0 g/dl (32-36) Platelet Count 213 K/uL (130-400) Mean Platelet Volume 10.8 fL (7.4-10.4) Neutrophils (%) (Auto) 71.2 % Lymphocytes (%) (Auto) 20.3 % Monocytes (%) (Auto) 6.0 % Eosinophils (%) (Auto) 1.7 % Basophils (%) (Auto) 0.6 % Neutrophils # (Auto) 6.99 K/uL (1.4-6.5) Lymphocytes # (Auto) 2.00 K/uL (1.2-3.4) Monocytes # (Auto) 0.59 K/uL (0.11-0.59) Eosinophils # (Auto) 0.17 K/uL (0-0.5) Basophils # (Auto) 0.06 K/uL (0-0.2) RDW Standard Deviation 42.5 fL (36.4-46.3) RDW Coefficient of Variation 13.0 % (11.5-14.5) Immature Granulocyte % (Auto) 0.2 % Immature Granulocyte # (Auto) 0.02 K/uL (0.00-0.02) Anion Gap 7.0 mmol/L (3-11) Estimated GFR () 52.5 Estimated GFR (Non- 45.3 BUN/Creatinine Ratio 15.7 (10-20) Calcium Level 9.1 mg/dl (8.5-10.1) Magnesium Level 2.6 mg/dl (1.8-2.4) Total Bilirubin 0.5 mg/dl (0.2-1) Direct Bilirubin 0.1 mg/dl (0-0.2) Aspartate Amino Transf (AST/SGOT) 20 U/L (15-37) Alanine Aminotransferase (ALT/SGPT) 37 U/L (12-78) Alkaline Phosphatase 80 U/L (45-117) Troponin I < 0.015 ng/ml (0-0.045) Total Protein 7.6 gm/dl (6.4-8.2) Albumin 4.0 gm/dl (3.4-5.0) Lipase 174 U/L (73-393) Lyme Disease IgG Antibody NEG (NEG) Lyme Disease IgM Antibody NEG (NEG) Laboratory results reviewed by me Medications Administered Medications (Trade) Dose Ordered Sig/Héctor Route Start Time Stop Time Status Last Admin Dose Admin Sodium Chloride 1,000 ml @ 999 mls/hr Q1H1M STAT IV 01/02/18 12:05 01/02/18 13:05 DC 01/02/18 12:55 999 MLS/HR Prednisone (PredniSONE TAB) 60 mg NOW STAT PO 01/02/18 16:30 01/02/18 16:37 DC 01/02/18 16:44 60 MG Valacyclovir HCl (Valtrex Tab) 1,000 mg NOW STAT PO 01/02/18 16:30 01/02/18 16:37 DC 01/02/18 16:44 1,000 MG Artificial Tears (Lacri-Lube Oph Oint) 1 appln NOW STAT OP 01/02/18 16:37 01/02/18 16:39 DC 01/02/18 16:45 1 APPLN Artificial Tears (Artificial Tears) 2 drops NOW STAT OP 01/02/18 16:37 01/02/18 16:39 DC 01/02/18 16:44 2 DROPS ECG Per My Interpretation Indication: weakness Rate (beats per minute): 78 Rhythm: normal sinus Findings: left axis deviation, other (No ST elevation. ) ED Course 1155: The patient was evaluated in room B9. A complete history and physical exam was performed. 1650: I reevaluated the patient. Discussed results and discharge instructions: he verbalized understanding and agreement. The patient is ready for discharge. Medical Decision I reviewed the patient's past medical history, medications, and the nursing notes as described above. Differential diagnosis: Etiologies such as Barnes's palsy, metabolic, infection, hypo/hyperglycemia, electrolyte abnormalities, cardiac sources, intracerebral event, toxicologic, neurologic, as well as others were entertained. The patient is a 77 y/o gentleman who presents to the emergency department with right sided facial droop involving the entire right side of his face unable to close his eye per HPI. On arrival the patient is in NAD, AFVSS. On exam the patient exhibits right sided ivon-facial paresis c/w peripheral lesion/barnes's palsy. Right eye tearing. Denies changes in vision. EKG unremarkable. WBC wnl. Lyme screen negative. Cr at baseline. CXR negative. Given patient's age and risk factors MRI ordered to r/o possible stroke although exam not c/w central cause. House-Brackmann grade IV, thus will treat with prednisone taper and Valtrex. Given inability to close eye will treat with Lacrilube/artificial tears. Patient has eye shield at home. Findings and plan for follow-up reviewed with patient. Patient agreeable and d/c'd per discharge instructions. Medication Reconcilliation Current Medication List: was personally reviewed by me Blood Pressure Screening Patient's blood pressure: Normal blood pressure Blood pressure disposition: Did not require urgent referral Impression Primary Impression: Barnes's palsy Scribe Attestation The scribe's documentation has been prepared under my direction and personally reviewed by me in its entirety. I confirm that the note above accurately reflects all work, treatment, procedures, and medical decision making performed by me. Departure Information Dispostion Home / Self-Care Prescriptions Artificial Tear Solution (ARTIFICIAL TEARS) 1 Susanna Susanna 1 DROPS OP QID, #30 ML 5 Refills Prov: Terry Nieves M.D. 01/02/18 Artificial Tears Oph Oint (Lacri-Lube Sop Oph Oint) Oint 0.25-0.5 INCH OP QID for 14 Days, #1 TUBE TO THE AFFECTED EYE UP TO QID PRN Prov: Terry Nieves M.D. 01/02/18 Prednisone (Prednisone) 20 Mg Tab 0 PO DAILY, #20 TAB 3 DAILY FOR 4 DAYS, then taper by 1/2 tablet (10mg) daily for total of 9 days. Prov: Terry Nieves M.D. 01/02/18 Valacyclovir Hcl (VALTREX) 1 Gm Tab 1 GM PO BID for 7 Days, #14 TAB Prov: Terry Nieves M.D. 01/02/18 Referrals Leon De Paz, D.OJustice (PCP) Patient Instructions ED [place] Palsy, [facility] Additional Instructions Please follow up with your primary care physician in the next 1-3 days for re- evaluation. You have a barnes's palsy, which is an impairment of your facial nerve that was likely provoked by a viral infection. Otherwise, your exam, EKG, chest xray, lab results, and MRI of your brain did not show signs of an emergent condition at this time. Valtrex antiviral as directed. Prednisone taper as anti-inflammatory as directed. Use Lacri-Lube eye ointment or artificial tear drops as directed to help prevent eye injury from your inability to close your eye. Drink plenty of fluids to ensure hydration. Return to the emergency department for worsening symptoms as described in the accompanying instructions.
[2018-01-02 16:58] VITALS: BP 127/84; PULSE 66; O2SAT 96
== END 2018-01-02 17:15 | disposition home or self-care (01) ==
LOC: C.EDB 11:45
DX: G51.0 Bell's palsy (principal); I10 Essential (primary) hypertension; C61 Malignant neoplasm of prostate; F17.200 Nicotine dependence, unspecified, uncomplicated

== ENCOUNTER 2018-01-11 06:38 | Inpatient (IN) | payer OTHER ==
[~2018-01-11] VITALS: Ht 177.8 cm; Wt 94.3 kg
[~2018-01-11 06:38] MED LIST changes: +ARTIOIN OP; +ARTISOL12 OP; -DIPH25CA5 PO; -IBUP-103 PO; +PRED20TA PO; -RXC5 PO; +WLLSR150 PO
[2018-01-11] MEDS ORDERED: SODIUM CHLORIDE 0.9% 1000ML 1,000 ML IV ONE (07:13)
[2018-01-11] MEDS ORDERED: SODIUM CHLORIDE 0.9% 1000ML 1,000 ML IV STA (07:13)
--- NOTE | 2018-01-11 07:15 | EMERGENCY ROOM VISIT NOTE ---
History Report prepared by Jesus: Fredy Amin Under the Supervision of: Dr. Daryn Billy M.D. First contact with patient: 06:58 Chief Complaint: SYNCOPE Stated Complaint: SYNCOPE Nursing Triage Summary: fell down last night and this morning after a snycopal episode and has had a lot of syncope over the last few weeks History of Present Illness The patient is a 77 year old male with a history of recent Iberia Palsy who presents to the Emergency Room with complaints of multiple syncopal episodes over the past 2 to 3 weeks. He states that "keeps blacking out", and has been feeling like he is going to pass out when he stands. The patient says that he does not feel like the room is spinning however. He notes that he has had approximately 10 syncopal episodes over the past few weeks. He states that he had a syncopal episode yesterday morning and last night, as well as around 2 hours ago. The patient says that he was going to or coming back from the bathroom every time he passed out since yesterday morning. He notes that felt very warm after the episode this morning. He states that this morning he passed out when going to the bathroom, and did hit the left side of his head. He says that he does not have any notable pain however, and denies any chest pain, heart racing, or abdominal pain. The patient notes that he has had intermittent fevers over the past few weeks. He says that he was seen by his doctor 3 days ago, and was set up for another MRI. He denies any tongue biting, incontinence, melena, hematochezia, or urinary symptoms. He notes no history of seizures. Per the patient's family, the patient started having syncopal episodes last November. Source of History: patient, family Onset: 2 to 3 weeks Position: other (global) Symptom Intensity: 10 episodes recently Quality: other (syncope) Timing: other (episodes) Associated Symptoms: + fevers, No abdominal pain, No melena, No hematochezia , No urinary symptoms Note: Associated symptoms: Feels like going to pass out when standing. Hit left side of head on fall this morning. Denies heart racing, incontinence. Review of Systems See HPI for pertinent positives & negatives. A total of 10 systems reviewed and were otherwise negative. Past Medical & Surgical Medical Problems: (1) Hypertension Nos (2) Hypertrophy (Benign) Of Prostate W/O Urinary Obst & Oth Luts (3) Rotator cuff tear arthropathy of right shoulder Surgical Problems: (1) Amputation Finger (2) Lens Replacement Nec Old medical records were reviewed. Nurse's notes were reviewed and I agree with. Family History Diabetes mellitus FH: heart disease FH: lung disease FHx: gallbladder disease Hypertension Social History Smoking Status: Current Every Day Smoker Alcohol Use: none Marital Status: Occupation Status: retired Current/Historical Medications Scheduled Artificial Tear Solution (Artificial Tears), 1 DROPS OP QID Artificial Tears Oph Oint (Lacri-Lube Sop Oph Oint), 0.25-0.5 INCH OP QID Bupropion HCl (Bupropion HCl Sr), 150 MG PO BID Finasteride (Proscar), 5 MG PO HS Lisinopril (Zestril), 20 MG PO QPM Tamsulosin Hcl (Flomax), 0.4 MG PO HS Allergies Coded Allergies: No Known Allergies (Verified , 01/11/18) Physical Exam Vital Signs Date Time Temp Pulse Resp B/P (MAP) Pulse Ox O2 Delivery O2 Flow Rate FiO2 01/11/18 08:42 71 18 117/59 98 Room Air 2.0 Nasal Cannula 01/11/18 07:03 71 01/11/18 06:42 36.7 74 16 104/64 98 Room Air Physical Exam General: Non-ill appearing older male in no acute distress. 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 Pupils are equal round and reactive to light. Extraocular movements are intact. Oropharynx is pink with moist mucous membranes. No swelling of the mouth lips or tongue. Neck: Supple with a midline trachea. No meningeal signs or stiffness, no JVD or bruits. No Stridor. Chest: Clear to auscultation bilaterally. No wheezes or rhonchi. No increased work of breathing. Heart: regular rate and rhythm. Abdomen: Soft nontender, nondistended without rebound guarding or rigidity. Extremities: Several partially amputated fingers on right. No cyanosis clubbing or edema. No calf tenderness or assymetry Spine/Back. Non tender to palpation. No CVA tenderness Skin: Good turgor without rashes. Neurologic exam: Cranial nerves two through 12 are intact. Motor and sensation are intact and symmetrical throughout. Medical Decision & Procedures ER Provider Diagnostic Interpretation: Radiology results as stated below per my review and radiologist interpretation: SINGLE VIEW CHEST CLINICAL HISTORY: Atypical chest pain. FINDINGS: An AP, portable, upright chest radiograph is compared to study dated 01/02/2018. The examination is degraded by portable technique and patient rotation. The heart is mildly enlarged and there is atherosclerotic calcification of the thoracic aorta. The pulmonary vasculature is noncongested. There is left basilar atelectasis. The lungs and pleural spaces are otherwise clear. No pneumothorax is seen. The skeletal structures appear osteopenic. A right shoulder arthroplasty is in place. Degenerative change is noted throughout the thoracic spine. IMPRESSION: Mild cardiomegaly with no acute cardiopulmonary abnormality. Electronically signed by: Ramiro Holland M.D. 01/11/2018 8:11 AM Dictated Date/Time: 01/11/2018 8:[address] SCAN OF THE BRAIN WITHOUT IV CONTRAST CLINICAL HISTORY: Trauma. Fall. Syncope. COMPARISON STUDY: MRI of the brain dated 01/02/2018. TECHNIQUE: Unenhanced axial CT scan of the brain is performed from the vertex to the skull base. A dose lowering technique was utilized adhering to the principles of ALARA. CT DOSE: 614.27 mGy.cm FINDINGS: Brain parenchyma: There are age-related involutional changes noting moderate confluent subcortical and periventricular microangiopathic change. There is no hemorrhage, mass effect, or evidence of acute territorial ischemia by CT criteria. Mooney-white matter is preserved. No extra-axial fluid collection is seen. Ventricles, sulci, cisterns: Prominent secondary to involutional change. Intracranial vasculature: There is atherosclerotic calcification of the cavernous carotid and vertebral arteries. Calvarium: The skeletal structures are osteopenic. No depressed calvarial fracture is seen. Sinuses and mastoids: The visualized paranasal sinuses are clear. The mastoid air cells are well pneumatized. Orbits: The bony orbits are grossly intact. There is evidence of bilateral ocular lens surgery. IMPRESSION: There is no hemorrhage, mass effect, or evidence of acute territorial ischemia by CT criteria. Electronically signed by: Ramiro Holland M.D. 01/11/2018 9:09 AM Dictated Date/Time: 01/11/2018 9:06 AM Laboratory Results 01/11/18 06:20 Red Blood Count 5.44, Mean Corpuscular Volume 90.6, Mean Corpuscular Hemoglobin 32.4, Mean Corpuscular Hemoglobin Concent 35.7, Mean Platelet Volume 11.7, Neutrophils (%) (Auto) 73.3, Lymphocytes (%) (Auto) 18.0, Monocytes (%) (Auto) 7.2, Eosinophils (%) (Auto) 1.0, Basophils (%) (Auto) 0.1, Neutrophils # (Auto) 12.17, Lymphocytes # (Auto) 2.99, Monocytes # (Auto) 1.20, Eosinophils # (Auto) 0.17, Basophils # (Auto) 0.02 01/11/18 06:20 Test 01/11/18 06:20 01/11/18 07:13 01/11/18 07:34 01/11/18 07:35 White Blood Count 16.61 K/uL (4.8-10.8) Red Blood Count 5.44 M/uL (4.7-6.1) Hemoglobin 17.6 g/dL (14.0-18.0) Hematocrit 49.3 % (42-52) Mean Corpuscular Volume 90.6 fL (80-100) Mean Corpuscular Hemoglobin 32.4 pg (25-34) Mean Corpuscular Hemoglobin Concent 35.7 g/dl (32-36) Platelet Count 193 K/uL (130-400) Mean Platelet Volume 11.7 fL (7.4-10.4) Neutrophils (%) (Auto) 73.3 % Lymphocytes (%) (Auto) 18.0 % Monocytes (%) (Auto) 7.2 % Eosinophils (%) (Auto) 1.0 % Basophils (%) (Auto) 0.1 % Neutrophils # (Auto) 12.17 K/uL (1.4-6.5) Lymphocytes # (Auto) 2.99 K/uL (1.2-3.4) Monocytes # (Auto) 1.20 K/uL (0.11-0.59) Eosinophils # (Auto) 0.17 K/uL (0-0.5) Basophils # (Auto) 0.02 K/uL (0-0.2) RDW Standard Deviation 43.4 fL (36.4-46.3) RDW Coefficient of Variation 13.4 % (11.5-14.5) Immature Granulocyte % (Auto) 0.4 % Immature Granulocyte # (Auto) 0.06 K/uL (0.00-0.02) Anion Gap 8.0 mmol/L (3-11) Est Creatinine Clear Calc Drug Dose 39.7 ml/min Estimated GFR () 39.1 Estimated GFR (Non- 33.7 BUN/Creatinine Ratio 18.8 (10-20) Calcium Level 9.0 mg/dl (8.5-10.1) Total Bilirubin 0.9 mg/dl (0.2-1) Direct Bilirubin 0.2 mg/dl (0-0.2) Aspartate Amino Transf (AST/SGOT) 21 U/L (15-37) Alanine Aminotransferase (ALT/SGPT) 56 U/L (12-78) Alkaline Phosphatase 80 U/L (45-117) Total Creatine Kinase 51 U/L (39-308) Creatine Kinase MB 1.0 ng/ml (0.5-3.6) Total Protein 7.3 gm/dl (6.4-8.2) Albumin 4.0 gm/dl (3.4-5.0) Lipase 284 U/L (73-393) Creatine Kinase MB Ratio (0-3.0) Bedside Troponin I < 0.030 ng/ml (0-0.045) Lyme Disease IgG Antibody NEG (NEG) Lyme Disease IgM Antibody NEG (NEG) Laboratory studies as stated above per my review. Medications Administered Medications (Trade) Dose Ordered Sig/Héctor Route Start Time Stop Time Status Last Admin Dose Admin Sodium Chloride 1,000 ml @ 999 mls/hr Q1H1M STAT IV 01/11/18 07:13 01/11/18 08:13 DC 01/11/18 07:35 999 MLS/HR Sodium Chloride 1,000 ml @ 150 mls/hr Q6H40M ONCE IV 01/11/18 07:13 01/11/18 11:07 DC 01/11/18 07:35 150 MLS/HR Sodium Chloride 1,000 ml @ 100 mls/hr Q10H IV 01/11/18 09:31 02/10/18 09:30 01/11/18 11:38 100 MLS/HR ECG Per My Interpretation Indication: syncope Rate (beats per minute): 74 Rhythm: normal sinus Findings: other (nonspecific ST and T-wave abnormalities) Change: no significant change (from January 02 2018) Change: EKG 2: Normal sinus rhythm 70 bpm, left axis deviation, incomplete RBBB, no significant change compared to EKG 1. EKG 3: Normal sinus rhythm 66 bpm, left axis deviation, incomplete RBBB, no change compared to EKG 2. ED Course 0701: Past medical records reviewed. The patient was evaluated in room B9, and a complete history and physical examination were performed. 0713: NSS 1000 ml @ 150 mls/hr IV, NSS 1000 ml @ 999 mls/hr IV. 0829: Upon reevaluation, the patient is resting. I discussed the results and treatment plan with the patient. He verbalized agreement of the treatment plan. The patient will be evaluated for further management. 0847: Discussed the patient's case with Dr. Darlin Phillips utility bill collector. The patient will be evaluated for further management. Medical Decision Differentials include, but are not limited to; syncope, dehydration, arrhythmia , trauma, infection, anemia, electrolyte or metabolic abnormality. This patient comes in as described above. He was placed in room B9. He's had several syncopal episodes over the last couple days or so. 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 His Lyme titer was negative. Brain MRI was unremarkable. His symptoms are more positional. He did hit his head when he fell. He has a normal neurologic exam right now. He is not feels keeping up with his fluids. He is in no symptoms suggestive GI bleed. IV access established and he was hydrated with IV normal saline. Multiple blood testing was obtained. EKG does not suggest acute coronary syndrome or arrhythmia. CAT scan shows no trauma or any other acute intracranial process. He is not significantly anemic. His white count is elevated which could be related to infection however think is more likely related to his steroid use. He has nothing suggest meningitis or encephalitis. His BUN and creatinine are elevated at 36 and 1.9 this is up from a couple days ago which is up from his baseline this may be prerenal but I do think he'll need this further evaluated. I do think he needs to be admitted/ observed for further cardiac evaluation and renal evaluation and hydration. I have consulted the hospitalist to see him in the ER for these measures. Head Trauma GCS Score: 15 Medication Reconcilliation Current Medication List: was personally reviewed by me Blood Pressure Screening Patient's blood pressure: Normal blood pressure Consults Time Called: 08 Consulting Physician: Dr. Darlin Phillips utility bill collector Returned Call: [phone] Discussed the patient's case with Dr. Darlin Phillips utility bill collector. The patient will be evaluated for further management. Impression Primary Impression: Syncope Additional Impressions: Dehydration Renal failure Scribe Attestation The scribe's documentation has been prepared under my direction and personally reviewed by me in its entirety. I confirm that the note above accurately reflects all work, treatment, procedures, and medical decision making performed by me. Departure Information Dispostion Being Evaluated By Hospitalist Referrals Leon De Paz, D.O. (PCP) Patient Instructions My [facility] Problem Qualifiers
[2018-01-11 07:27] LABS: BASO % 0.1 %; BASO ABS # 0.02 K/uL (0-0.2); EOS ABS # 0.17 K/uL (0-0.5); HEMATOCRIT 49.3 % (42-52); HEMOGLOBIN 17.6 g/dL (14.0-18.0); IG# 0.06 K/uL (0.00-0.02); LYMPH ABS # 2.99 K/uL (1.2-3.4); MEAN CELL VOLUME 90.6 fL (80-100); MEAN CORPUSCULAR HEMOGLOBIN 32.4 pg (25-34); MEAN CORPUSCULAR HGB CONC 35.7 g/dl (32-36); MEAN PLATELET VOLUME 11.7 fL (7.4-10.4); MONO % 7.2 %; NEUT % 73.3 %; NEUT ABS # 12.17 K/uL (1.4-6.5); PLATELET COUNT 193 K/uL (130-400); RED CELL DISTRIBUTION WIDTH CV 13.4 % (11.5-14.5); RED CELL DISTRIBUTION WIDTH SD 43.4 fL (36.4-46.3); WHITE BLOOD COUNT 16.61 K/uL (4.8-10.8)
[2018-01-11 07:36] LABS: CREATININE 1.89 mg/dl (0.60-1.40); POTASSIUM 3.8 mmol/L (3.5-5.1)
[2018-01-11 07:41] LABS: TOTAL PROTEIN 7.3 gm/dl (6.4-8.2)
--- NOTE | 2018-01-11 08:12 | DIAGNOSTIC IMAGING REPORT ---
SINGLE VIEW CHEST CLINICAL HISTORY: Atypical chest pain. FINDINGS: An AP, portable, upright chest radiograph is compared to study dated 01/02/2018. The examination is degraded by portable technique and patient rotation. The heart is mildly enlarged and there is atherosclerotic calcification of the thoracic aorta. The pulmonary vasculature is noncongested. There is left basilar atelectasis. The lungs and pleural spaces are otherwise clear. No pneumothorax is seen. The skeletal structures appear osteopenic. A right shoulder arthroplasty is in place. Degenerative change is noted throughout the thoracic spine. IMPRESSION: Mild cardiomegaly with no acute cardiopulmonary abnormality. Electronically signed by: Ramiro Holland M.D. 01/11/2018 8:11 AM Dictated Date/Time: 01/11/2018 8:10 AM
--- NOTE | 2018-01-11 09:10 | DIAGNOSTIC IMAGING REPORT ---
CT SCAN OF THE BRAIN WITHOUT IV CONTRAST CLINICAL HISTORY: Trauma. Fall. Syncope. COMPARISON STUDY: MRI of the brain dated 01/02/2018. TECHNIQUE: Unenhanced axial CT scan of the brain is performed from the vertex to the skull base. A dose lowering technique was utilized adhering to the principles of ALARA. CT DOSE: 614.27 mGy.cm FINDINGS: Brain parenchyma: There are age-related involutional changes noting moderate confluent subcortical and periventricular microangiopathic change. There is no hemorrhage, mass effect, or evidence of acute territorial ischemia by CT criteria. Mooney-white matter is preserved. No extra-axial fluid collection is seen. Ventricles, sulci, cisterns: Prominent secondary to involutional change. Intracranial vasculature: There is atherosclerotic calcification of the cavernous carotid and vertebral arteries. Calvarium: The skeletal structures are osteopenic. No depressed calvarial fracture is seen. Sinuses and mastoids: The visualized paranasal sinuses are clear. The mastoid air cells are well pneumatized. Orbits: The bony orbits are grossly intact. There is evidence of bilateral ocular lens surgery. IMPRESSION: There is no hemorrhage, mass effect, or evidence of acute territorial ischemia by CT criteria. Electronically signed by: Ramiro Holland M.D. 01/11/2018 9:09 AM Dictated Date/Time: 01/11/2018 9:06 AM
[2018-01-11] MEDS ORDERED: NURSING VERBAL MED ORDER ONE (09:15)
[2018-01-11] MEDS ORDERED: NITROGLYCERIN 0.4 MG SL PER TAB CHARGE SL PRN (09:45)
[2018-01-11] MEDS ORDERED: ONDANSETRON INJ 2 MG/ML 2 ML VIAL IV PRN (09:45)
[2018-01-11] MEDS ORDERED: POLYETHYLENE (MIRALAX) 17 GM PACK PO PRN (09:45)
[2018-01-11] MEDS ORDERED: ACETAMINOPHEN 325 MG TAB PO PRN (09:45)
[2018-01-11] MEDS ORDERED: CALCIUM CARBONATE 500 MG CHEWABLE PO ONE (09:45)
[2018-01-11] MEDS ORDERED: HydrALAZINE HCL 20 MG/ML VIAL IV. PRN (09:45)
[2018-01-11 09:50] VITALS: O2SAT 98; BMI 32.1
[2018-01-11 09:51] VITALS: Ht 177.8 cm; Wt 94.3 kg
[2018-01-11 10:55] VITALS: BP 143/83; PULSE 67; TEMP 36.6; O2SAT 94
[2018-01-11] MEDS: SODIUM CHLORIDE 0.9% 1000ML 1,000 ML IV SCH ×2 (11:38→20:59)
--- NOTE | 2018-01-11 12:11 | CONSULTATION REPORT ---
DATE OF CONSULTATION: 01/11/2018 CONSULTATION FOR: Dr. Saeed. HISTORY OF PRESENT ILLNESS: Mr. Ochoa is 77 years old, he is normally patient of Dr. Leon De Paz and was actually seen in our Emergency Room back on the for an acute right Barnes palsy, which had some associated problems with dysphagia for a while and then cleared up. He was placed on a course of prednisone and acyclovir, finished the course several days ago, but is now here not so much with a Weed palsy which is gradually improving, but for recurrent syncopal events which have been occurring according to him for the past month with acceleration in the past few weeks. He estimates he has had about 10 of these. They usually occur when he stands up often when he is going to the bathroom or leaving the bathroom and maybe associated with a sensation of warmth. He did have a mild trauma with it but no major injuries were suffered. He was to have another MRI because of his problems with swallowing, but he has had some fevers over the past several weeks, suggesting he may have had viral illnesses well. At no time during the syncopal episodes as there have been any incontinence, tongue biting and there has been no loss of urinary continence, rectal continence and no diarrhea or other systematic complaints. There is no prior history of seizures. PAST MEDICAL HISTORY: Includes hypertension, benign prostatic hypertrophy, rotator cuff arthropathy, amputation of the fingers. He has had bilateral lens implants. MEDICATIONS: His medication list includes now artificial tears, bupropion, finasteride, lisinopril, and tamsulosin. ALLERGIES: He has no known allergies. FAMILY HISTORY: Positive for diabetes, heart disease, lung disease, gallbladder disease and hypertension. SOCIAL HISTORY: Reveals him to be a continued smoker. He does not consume ethanol. He is and he is retired. PHYSICAL EXAMINATION: VITAL SIGNS: Today revealed a blood pressure 117/59, respirations of 18, pulse was 71. Initial orthostatic testing did not reveal a significant systolic drop. He appeared his stated age. There was a mild residual facial palsy on the right, peripheral type. Otherwise, cranial nerve examination was normal. There was no lingual or buccal lacerations. NECK: Supple. I did not hear any carotid bruits. LUNGS: Clear. HEART: Had a regular rhythm. ABDOMEN: Reportedly soft and nontender. EXTREMITIES: Free of edema. NEUROLOGIC: With the exception of the Barnes palsy with a significant weakness of the right forehead, the orbicularis oculi and to a lesser degree orbicularis sae is unremarkable. There is no loss of facial sensation. Ocular movements are normal. Pupils are equal, round, reactive to light. Gross visual field testing is clear. Speech is a little dysarthric allowing for the Barnes palsy. He has no hyperacusis or hearing loss on the right. There is no drift, pronation sign, tremor, tics or choreiform activity. Reflexes are all present and equal safe and the ankle jerks which are hypoactive to absent. Toes are downgoing. No Oswaldo signs are seen. Strength testing is normal and sensation is intact to vibration, light touch and temperature and even proprioception. LABORATORY STUDIES: Revealed elevated white count, but this may be the residual of the steroid therapy. Otherwise, his chemistry screen is unremarkable. BUN is a little up at 36 and creatinine is 1.89, so there may be an element of dehydration. Random glucose is 106. Urinalysis is pending. IMAGING DATA: Chest x-ray shows no evidence for infiltrate and the CT scan of the brain shows only the white matter changes which were noted on the MRI and the scan initially did not show any significant abnormalities in the region of the right facial nerve in the posterior fossa. CAT scan of course is of adequate resolution to address this today. IMPRESSION AND PLAN: At this time, I suspect this man is having recurrent orthostatic hypotensive episodes rather than seizures. An electroencephalography has been ordered. I have no objections to this, but the likelihood of these being seizures is in my opinion very remote. I think he needs hydration. He may well have an underlying infection as it sounds as though he has been ill for several weeks now with some fevers and this may have predated the Weed palsy. I would recommend no other treatment of the Weed palsy other than the continued use of the liquid tears and he probably is going to need ophthalmology and follow up with us. I assume some of this has been arranged on an outpatient basis. I will check back with him tomorrow, but for now, I would hydrate him, continue to monitor his orthostatics. Will check an EEG. He probably could have an echo and a carotid duplex as well just to be sure there is no underlying cardiac issue or high grade carotid stenosis and I am going to check the order set and put an order in for a duplex and an echo if they have been ordered. AVILA
--- NOTE | 2018-01-11 12:26 | ECHOCARDIOGRAM REPORT ---
*NOTICE TO RECEIVING [employer] This information is strictly Confidential and protected under [place] law. [place] law prohibits you from making any further disclosure of this information unless further disclosure is expressly permitted by the written consent of the person to whom it pertains or is authorized by law. A general authorization for the release of medical or other information is not sufficient for this purpose. Hospital accepts no responsibility if the information is made available to any other person, INCLUDING THE PATIENT. Interpretation Summary * Name: RANJANA CORTEZ Study Date: 01/11/2018 10:07 AM BP: 117/59 mmHg * Patient Location: C.EDB HR: 70 * : 1940 (M/d/yyyy) Gender: Male Height: 70 in * Age: 77 yrs Ethnicity: [place] Weight: 223 lb * Ordering Physician: Yonatan Saeed * Referring Physician: Self, Referred * Performed By: Sandra Steven RCS * * Reason For Study: SYNCOPE * BSA: 2.2 m2 * -- Conclusions -- * Small, underfilled LV chamber with moderate concentric LVH. * Normal LV systolic function, EF 55-60%. * No segmental left ventricular wall motion abnormalities are noted. * Grade I diastolic dysfunction. * Aortic valve sclerosis mild, without significant aortic valvular stenosis. * Small, loculated anterior pericardial effusion with stranding to suggest chronicity. Procedure Details * A complete two-dimensional transthoracic echocardiogram was performed (2D, M-mode, Doppler and color flow Doppler). Left Ventricle * The left ventricular cavity is small. * There is moderate concentric left ventricular hypertrophy. * Left ventricular systolic function is normal. * No segmental left ventricular wall motion abnormalities are noted. * Ejection Fraction = 55-60%. * The left ventricular wall motion is normal. Right Ventricle * The right ventricular cavity size is normal (basal dimension <4.2 cm in right ventricular apical 4-chamber view). * The right ventricular systolic function is normal as assessed by tricuspid annular plane systolic excursion (TAPSE) (normal >1.5 cm). Atria * The left atrium is mildly dilated. * Right atrium not well visualized. * No ASD detected; PFO is not assessed. Mitral Valve * There is mild mitral annular calcification. * There is no mitral valve stenosis. * There is no mitral regurgitation noted. Tricuspid Valve * The tricuspid valve is normal in structure and function. Aortic Valve * The aortic valve is trileaflet. * Aortic valve sclerosis mild, without significant aortic valvular stenosis. * There is no significant aortic regurgitation. Pulmonic Valve * The pulmonary valve is not well seen, but the Doppler examination is normal without significant regurgitation or stenosis. Great Vessels * The aortic root is normal size. Pericardium/Pleural * Small pericardial effusion. * A loculated pericardial effusion is noted. Left Ventricular Diastolic Function * Grade I diastolic dysfunction, (abnormal relaxation pattern). MMode 2D Measurements and Calculations IVSd 1.5 cm IVSs 1.9 cm LVIDd 4.9 cm LVIDs 3.1 cm LVPWd 1.5 cm LVPWs 1.5 cm IVS/LVPW 1.1 FS 37.5 % EDV(Teich) 114.6 ml ESV(Teich) 37.4 ml EF(Teich) 67.4 % EDV(cubed) 120.1 ml ESV(cubed) 29.3 ml EF(cubed) 75.6 % % IVS thick 24.7 % % LVPW thick 2.0 % LV mass(C)d 316.0 grams LV mass(C)dI 144.6 grams/m\S\2 LV mass(C)s 204.0 grams LV mass(C)sI 93.3 grams/m\S\2 SV(Teich) 77.2 ml SI(Teich) 35.3 ml/m\S\2 SV(cubed) 90.7 ml SI(cubed) 41.5 ml/m\S\2 Ao root diam 3.6 cm Ao root area 10.0 cm\S\2 LA dimension 4.3 cm LA/Ao 1.2 LVOT diam 2.1 cm LVOT area 3.5 cm\S\2 LVAd ap4 25.0 cm\S\2 LVLd ap4 6.8 cm EDV(MOD-sp4) 76.7 ml EDV(sp4-el) 78.3 ml LVAs ap4 16.4 cm\S\2 LVLs ap4 5.8 cm ESV(MOD-sp4) 40.1 ml ESV(sp4-el) 39.0 ml EF(MOD-sp4) 47.7 % EF(sp4-el) 50.2 % LVAd ap2 24.0 cm\S\2 LVLd ap2 6.8 cm EDV(MOD-sp2) 70.7 ml EDV(sp2-el) 72.3 ml LVAs ap2 16.0 cm\S\2 LVLs ap2 6.0 cm ESV(MOD-sp2) 35.5 ml ESV(sp2-el) 36.3 ml EF(MOD-sp2) 49.9 % EF(sp2-el) 49.8 % LVLd %diff -0.16 % EDV(MOD-bp) 73.6 ml LVLs %diff 2.7 % ESV(MOD-bp) 37.9 ml EF(MOD-bp) 48.5 % SV(MOD-sp4) 36.6 ml SI(MOD-sp4) 16.7 ml/m\S\2 SV(MOD-sp2) 35.3 ml SI(MOD-sp2) 16.1 ml/m\S\2 SV(MOD-bp) 35.7 ml SI(MOD-bp) 16.3 ml/m\S\2 SV(sp4-el) 39.3 ml SI(sp4-el) 18.0 ml/m\S\2 SV(sp2-el) 36.0 ml SI(sp2-el) 16.5 ml/m\S\2 Doppler Measurements and Calculations MV E max burke 41.5 cm/sec MV A max burke 79.3 cm/sec MV E/A 0.52 MV P1/2t max burke 47.5 cm/sec MV P1/2t 108.4 msec MVA(P1/2t) 2.0 cm\S\2 MV dec slope 128.3 cm/sec\S\2 MV dec time 0.12 sec Ao V2 max 88.9 cm/sec Ao max PG 3.2 mmHg Ao max PG (full) 0.61 mmHg CORNELL(V,A) 3.1 cm\S\2 CORNELL(V,D) 3.1 cm\S\2 LV V1 max PG 2.6 mmHg LV V1 max 79.9 cm/sec
--- NOTE | 2018-01-11 13:03 | DIAGNOSTIC IMAGING REPORT ---
ULTRASOUND OF THE CAROTID ARTERIES CLINICAL HISTORY: Syncope. COMPARISON STUDY: No priors. TECHNIQUE: Real-time, grayscale, and color Doppler sonography of the carotid arteries is performed. Images are reviewed in the transverse and longitudinal planes. FINDINGS: Blood pressure in the right arm measures 112/71 and blood pressure in the left arm measures 104/64. The carotid arteries are patent bilaterally and demonstrate antegrade flow. There is mild atherosclerotic plaque seen bilateral. Normal doppler arterial waveforms are seen throughout. Velocity measurements are listed below. Common carotid peak systolic velocity (cm/sec): RIGHT: 65 LEFT: 71 ICA proximal peak systolic velocity (cm/sec): RIGHT: 49 LEFT: 40 ICA mid peak systolic velocity (cm/sec): RIGHT: 63 LEFT: 48 ICA distal peak systolic velocity (cm/sec): RIGHT: 55 LEFT: 104 ICA/CC peak systolic ratio: RIGHT: 1.0 LEFT: 1.5 Antegrade flow was shown in the vertebral arteries. The external carotid arteries are patent. IMPRESSION: 1. There is no sonographic evidence of hemodynamically significant stenosis in the right or left carotid arterial system. 2. Antegrade flow is shown in the vertebral arteries. Electronically signed by: Ramiro Holland M.D. 01/11/2018 1:02 PM Dictated Date/Time: 01/11/2018 1:01 PM
[2018-01-11] MEDS: ARTIFICIAL TEARS OP SOLN OP SCH ×3 (13:25→20:56)
[2018-01-11] MEDS: ARTIFICIAL TEARS OP OINT 3.5 GM TUBE OP SCH ×3 (13:25→20:55)
[2018-01-11 15:34] VITALS: BP 141/87; PULSE 65; TEMP 36.6; O2SAT 95
[2018-01-11 16:00] VITALS: O2SAT 95
[2018-01-11 19:18] VITALS: BP 125/70; PULSE 67; TEMP 36.9; O2SAT 94
[2018-01-11] MEDS: BuPROPion SR 150 MG TABCR PO SCH (20:56)
[2018-01-11] MEDS: TAMSULOSIN HCL 0.4 MG CAP PO SCH (20:56)
[2018-01-11] MEDS: FINASTERIDE 5 MG TAB PO SCH (20:56)
[2018-01-11 22:58] VITALS: BP 128/76; PULSE 65; TEMP 36.9; O2SAT 96
[2018-01-12] VITALS (10 sets, daily range): BP systolic 99–170; BP diastolic 60–93; PULSE 62–78; TEMP 36.3–36.7; O2SAT 95–99
[2018-01-12] MEDS: SODIUM CHLORIDE 0.9% 1000ML 1,000 ML IV SCH ×2 (05:05→18:40)
[2018-01-12] MEDS ORDERED: CALCIUM CARBONATE 500 MG CHEWABLE PO PRN (07:30)
[2018-01-12 07:45] LABS: BASO % 0.2 %; BASO ABS # 0.02 K/uL (0-0.2); EOS % 2.1 %; HEMATOCRIT 42.5 % (42-52); HEMOGLOBIN 14.6 g/dL (14.0-18.0); IG# 0.05 K/uL (0.00-0.02); LYMPH % 21.1 %; LYMPH ABS # 2.04 K/uL (1.2-3.4); MEAN CORPUSCULAR HEMOGLOBIN 30.9 pg (25-34); MEAN CORPUSCULAR HGB CONC 34.4 g/dl (32-36); MEAN PLATELET VOLUME 11.3 fL (7.4-10.4); MONO % 6.4 %; MONO ABS # 0.62 K/uL (0.11-0.59); NEUT % 69.7 %; NEUT ABS # 6.75 K/uL (1.4-6.5); PLATELET COUNT 135 K/uL (130-400); RED CELL DISTRIBUTION WIDTH CV 13.1 % (11.5-14.5); RED CELL DISTRIBUTION WIDTH SD 42.3 fL (36.4-46.3); WHITE BLOOD COUNT 9.68 K/uL (4.8-10.8)
[2018-01-12 07:57] LABS: CALCIUM 7.8 mg/dl (8.5-10.1); CREATININE 1.29 mg/dl (0.60-1.40); POTASSIUM 3.8 mmol/L (3.5-5.1)
[2018-01-12] MEDS: ARTIFICIAL TEARS OP SOLN OP SCH ×4 (08:02→21:11)
[2018-01-12] MEDS: ARTIFICIAL TEARS OP OINT 3.5 GM TUBE OP SCH ×4 (08:02→21:12)
[2018-01-12] MEDS: BuPROPion SR 150 MG TABCR PO SCH ×2 (08:02→21:12)
--- NOTE | 2018-01-12 09:56 | HISTORY & PHYSICAL EXAMINATION ---
DATE OF ADMISSION: 01/11/2018 CHIEF COMPLAINT: Syncope. 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 The patient since last 1 day, he fell 4 times. Patient says while walking he felt some dizzy and passing out, and as soon as he hit the head on the floor he got his consciousness back and was not confused after that and no seizure like activity. He has some headaches from the fall. Denies any fever or chills. No cough, no shortness of breath, no chest pain. No nausea, no vomiting. No earaches. No runny nose. He had some sore throat before, that is gone. He was not eating and drinking good for the last few weeks, mainly since Barnes's palsy, and lost several pounds of weight. He had a normal bowel movement yesterday. Normal bladder movements. No blood in the stools, or blood in the urine. No rash. No history of tick bites. No abdominal pain. The patient saw family doctor a few days back and at that time he was still having problems with swallowing food and difficulty closing of the right eye and facial droop and family doctor was considering repeating MRI with contrast, but the patient says since he visited his family doctor, his symptoms are improved and he is eating better since last 2 days,. Currently, blood pressure seems to be okay. Resting comfortably and hemodynamically stable. ALLERGIES: No known drug allergies. PAST MEDICAL HISTORY: As mentioned above. PAST SURGICAL HISTORY: Colonoscopy with biopsy, tubulovillous adenoma and polypectomy, dental surgery, incision and drainage of the right forearm and wrist, right thumb tendon repair, biopsy of prostate, entropion eyelid repair, orchiectomy radical left, left inguinal hernia repair, right inguinal hernia repair, umbilical hernia repair. MEDICATIONS: Currently, the patient is on artificial tears, bupropion extended release 150 mg p.o. b.i.d., Proscar 5 mg p.o. daily, lisinopril 20 mg p.o. daily, Flomax 0.4 mg p.o. daily, ProAir HFA 2 puffs 4 times daily. FAMILY HISTORY: Significant for father had colon cancer, mother had colon and breast cancer, brother has lymphoma. Mother had breast lymphoma. Brother had heart disorder. SOCIAL HISTORY: , lives with his . Currently smokes 1 pack a day for last 50 years. No alcohol use, no drug use. REVIEW OF SYMPTOMS: As per HPI. Rest of review of systems negative. PHYSICAL EXAMINATION: GENERAL: The patient is of moderate build, not in distress. VITAL SIGNS: Temperature 36.7, pulse 71, respiratory rate 18, blood pressure 117/59 and oxygen 98% room air. HEENT: No pallor, no icterus. Right eyelid is somewhat erythematous. No significant facial droop seen. NECK: No neck masses, no carotid bruits. CARDIOVASCULAR: S1, S2 heard, regular rate and rhythm, no murmur, no gallop. RESPIRATORY: Normal AP diameter. No accessory muscle use. No wheezing, no crackles. ABDOMEN: Soft, bowel sounds present. Nontender. No distention. CENTRAL NERVOUS SYSTEM: Cranial nerves II-XII grossly nonfocal. EXTREMITIES: No edema, no erythema. LABORATORY DATA: WBC 6.6, hemoglobin 17.6, hematocrit 49.3, platelets 203. Sodium 139, potassium 3.8, chloride 107, bicarbonate 25, BUN 36, creatinine 1.8, serum glucose 106, calcium 9, total bilirubin 0.9, direct bilirubin 0.2, AST 21, ALT 56, alkaline phosphatase 80, total creatine kinase 51, troponin I less than 0.03, lipase 284. CT of the head, no acute findings. Chest x-ray, no acute findings, showing mild cardiomegaly. EKG: Normal sinus rhythm with rate of 70, some left axis deviation, right bundle- branch block. ASSESSMENT AND PLAN: This is a 77-year-old male who presents with syncope. 1. Syncope, passed out 3-4 times since last 1 day. As per he also passed out last Easter on the outside, but lately since his Barnes's Palsy, he was not able to eat much for the last week and has lost weight, could be from dehydration. We will give him IV fluids,. we will check his echocardiogram and also check EEG, though does not look like any seizure activity. We will consult neuro for further recommendation. Monitor on tele floor. 2. Acute renal failure and chronic kidney disease, stage II to III, baseline creatinine between 1 to 1.2, presents with creatinine of 1.8. Holding lisinopril. Placing him on IV fluids. labs in a.m. 3. Barnes's palsy. Last time, Lyme disease was negative and MRI of the head was negative. He finished the course of prednisone and symptoms are improving. If any concerns, we will repeat MRI of the head with contrast as he also had some difficulty swallowing few days back but that is getting better. We will have neuro input. 4. Benign prostatic hyperplasia. Continue Proscar and Flomax. 5. Hyperlipidemia, not on medication. Follow labs. 6. Tobacco disorder. We will general counselor for smoking cessation. 7. Deep venous thrombosis prophylaxis. SCDs and TEDs for now. 8. Disposition: Admit to tele floor. Expect discharge home and follow up with his family doctor. Level 1 full code. MTDD
--- NOTE | 2018-01-12 11:22 | ECHOCARDIOGRAM REPORT ---
*NOTICE TO RECEIVING [employer] This information is strictly Confidential and protected under [place] law. [place] law prohibits you from making any further disclosure of this information unless further disclosure is expressly permitted by the written consent of the person to whom it pertains or is authorized by law. A general authorization for the release of medical or other information is not sufficient for this purpose. Hospital accepts no responsibility if the information is made available to any other person, INCLUDING THE PATIENT. Interpretation Summary * Name: RANJANA CORTEZ Study Date: 01/12/2018 10:17 AM BP: 139/73 mmHg * Patient Location: [facility] HR: 79 * : 1940 (M/d/yyyy) Gender: Male Height: 70 in * Age: 77 yrs Ethnicity: [place] Weight: 223 lb * Ordering Physician: RESHMA COLE MD * Performed By: Sandra Steven RCS * * Reason For Study: SYNCOPE * BSA: 2.2 m2 * -- Conclusions -- * The interatrial septum is intact with no evidence for an atrial septal defect. * Injection of contrast documented no interatrial shunt. Procedure Details * The study was technically limited. * A saline contrast injection was performed to assess for cardiac shunting. * The injection was performed through an intravenous line in the left arm. * The attending nurse who injected the saline contrast was KUSH TENORIO, RN. * A total of 20 cc of agitated saline was given. Atria * The interatrial septum is intact with no evidence for an atrial septal defect. * Injection of contrast documented no interatrial shunt.
--- NOTE | 2018-01-12 17:43 | Progress Note ---
Internal Med Progress Note Date of Service: Jan 12, 2018. Provider Documentation: SUBJECTIVE: resting comfortably feeling much better denies any pain no nausea no sob eating ok afebrile OBJECTIVE: Vital Signs-as noted below Exam: General-alert and oriented. ENT-Normal hearing Neck-no neck masses Lungs-cta b/l no wheezing no crackles present Heart-S1 and S2 heard regular rate and rhythm no murmurs Abdomen-Soft bowel sounds present non tender no distension Extremities-no edema no erythema Neuro-alert and awake moves extremities Lab data as noted below. ASSESSMENT & PLAN: : This is a 77-year-old male who presents with syncope. 1. Syncope, passed out 3-4 times since last 1 day. mostly orthostatic hypotension from dehydration as was not eating much since dx of bells palsy echo small LV camber and moderate LVH otherwise unremarkable carotid Doppler negative ct head negative recent MRI negative await eeg on fluids neurology on board pt/ot 2. Acute renal failure and chronic kidney disease, stage II to III, baseline creatinine between 1 to 1.2, presents with creatinine of 1.8. Holding lisinopril. on IV fluids. resolved. . 3. Barnes's palsy. 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 He finished the course of prednisone and symptoms are improving. If any concerns, we will do MRI of the head with contrast as he also had some difficulty swallowing few days back but that is getting better. Neuro on board. 4. Benign prostatic hyperplasia. Continue Proscar and Flomax. 5. Hyperlipidemia, not on medication. :LDL 53. HDL 28 6. Tobacco disorder. We will student support counselor for smoking cessation. 7. Deep venous thrombosis prophylaxis. SCDs and TEDs for now. 8. Disposition: Monitor in tele floor. Expect discharge home and follow up with his family doctor. Level 1 full code. Possible d/c in am if stable Vital Signs: Date Time Temp Pulse Resp B/P (MAP) Pulse Ox O2 Delivery O2 Flow Rate FiO2 01/12/18 19:19 36.6 68 18 165/90 (115) 97 Room Air 01/12/18 16:00 99 Room Air 01/12/18 15:45 36.4 69 18 147/78 (101) 99 Room Air 01/12/18 12:00 95 Room Air 2.0 01/12/18 11:33 36.7 72 20 139/72 (94) 96 70 123/73 (90) 71 99/60 (73) 01/12/18 08:00 95 Room Air 2.0 01/12/18 07:06 36.7 64 16 139/73 (95) 95 Room Air 01/12/18 04:00 Room Air 01/12/18 02:57 36.3 62 18 131/77 (95) 97 Room Air 01/12/18 00:00 Room Air 01/11/18 22:58 36.9 65 18 128/76 (93) 96 Room Air 01/11/18 20:00 Room Air Lab Results: Results Past 24 Hours Test 01/12/18 07:01 01/12/18 07:04 Range/Units White Blood Count 9.68 4.8-10.8 K/uL Red Blood Count 4.72 4.7-6.1 M/uL Hemoglobin 14.6 14.0-18.0 g/dL Hematocrit 42.5 42-52 % Mean Corpuscular Volume 90.0 80-100 fL Mean Corpuscular Hemoglobin 30.9 25-34 pg Mean Corpuscular Hemoglobin Concent 34.4 32-36 g/dl Platelet Count 135 130-400 K/uL Mean Platelet Volume 11.3 7.4-10.4 fL Neutrophils (%) (Auto) 69.7 % Lymphocytes (%) (Auto) 21.1 % Monocytes (%) (Auto) 6.4 % Eosinophils (%) (Auto) 2.1 % Basophils (%) (Auto) 0.2 % Neutrophils # (Auto) 6.75 1.4-6.5 K/uL Lymphocytes # (Auto) 2.04 1.2-3.4 K/uL Monocytes # (Auto) 0.62 0.11-0.59 K/uL Eosinophils # (Auto) 0.20 0-0.5 K/uL Basophils # (Auto) 0.02 0-0.2 K/uL RDW Standard Deviation 42.3 36.4-46.3 fL RDW Coefficient of Variation 13.1 11.5-14.5 % Immature Granulocyte % (Auto) 0.5 % Immature Granulocyte # (Auto) 0.05 0.00-0.02 K/uL Sodium Level 141 136-145 mmol/L Potassium Level 3.8 3.5-5.1 mmol/L Chloride Level 112 98-107 mmol/L Carbon Dioxide Level 24 21-32 mmol/L Anion Gap 5.0 3-11 mmol/L Blood Urea Nitrogen 25 7-18 mg/dl Creatinine 1.29 0.60-1.40 mg/dl Est Creatinine Clear Calc Drug Dose 57.3 ml/min Estimated GFR () 62.0 Estimated GFR (Non- 53.5 BUN/Creatinine Ratio 19.5 10-20 Random Glucose 82 70-99 mg/dl Calcium Level 7.8 8.5-10.1 mg/dl Magnesium Level 2.4 1.8-2.4 mg/dl Triglycerides Level 132 0-150 mg/dl Cholesterol Level 107 0-200 mg/dl HDL Cholesterol 28 mg/dl LDL Cholesterol, Calculated 53 mg/dl VLDL Cholesterol, Calculated 26 mg/dl Cholesterol/HDL Ratio 3.8 Cortisol AM Sample 16.19 4.30-22.40 mcg/dl
--- NOTE | 2018-01-12 18:02 | PROGRESS NOTE ---
DATE: 01/12/2018 SUBJECTIVE: I saw Milton today. His Barnes palsy is actually coming along nicely. He can close the eye. The forehead is beginning to wrinkle a little bit. He can even move the lower part of his face. I think is a flicker of function in the platysma. He talks about a terrible taste in his mouth and this ____ some of the medication that it is required to take to treat his Barnes palsy made him reluctant to eat any food. He probably got dehydrated as his pressures are now coming back up. There was 1 episode of at least recorded systolics under 100 when he stood up, but he went symptomatic. He is ambulatory with assistance often independently and otherwise feels well. His duplex of the carotids was normal and an echocardiogram has not been interpreted yet, but I suspect we are not going to find any significant loss of cardiac function, but this would be part of the differential diagnosis of recurrent syncopal events. Thus far, the monitor has shown no arrhythmias. At this point, we are going to wait for the EEG tomorrow, but again I really doubt that these events were seizures as their description are so typical of orthostatic hypotension. We will check him tomorrow, but if the EEG is normal and he is doing better, I think Neurology can signoff the case and he will not need neurologic followup other than perhaps for his Barnes palsy, and I would assume that this is already arranged through his primary care service. If not, we will make sure he has a followup visit with us about a month after discharge and he should be seeing Ophthalmology.
[2018-01-12] MEDS: FINASTERIDE 5 MG TAB PO SCH (21:12)
[2018-01-12] MEDS: TAMSULOSIN HCL 0.4 MG CAP PO SCH (21:12)
[2018-01-12] MEDS: LISINOPRIL 20 MG TAB PO SCH (21:17)
[2018-01-13] VITALS (7 sets, daily range): BP systolic 92–170; BP diastolic 55–91; PULSE 60–79; TEMP 36.5–36.8; O2SAT 95–97
[2018-01-13] MEDS: SODIUM CHLORIDE 0.9% 1000ML 1,000 ML IV SCH (05:36)
[2018-01-13 06:12] LABS: BASO % 0.2 %; BASO ABS # 0.02 K/uL (0-0.2); EOS % 2.9 %; EOS ABS # 0.27 K/uL (0-0.5); HEMATOCRIT 41.2 % (42-52); HEMOGLOBIN 14.7 g/dL (14.0-18.0); IG# 0.03 K/uL (0.00-0.02); LYMPH % 23.5 %; LYMPH ABS # 2.15 K/uL (1.2-3.4); MEAN CELL VOLUME 88.2 fL (80-100); MEAN CORPUSCULAR HEMOGLOBIN 31.5 pg (25-34); MEAN CORPUSCULAR HGB CONC 35.7 g/dl (32-36); MEAN PLATELET VOLUME 10.7 fL (7.4-10.4); MONO % 7.3 %; MONO ABS # 0.67 K/uL (0.11-0.59); NEUT % 65.8 %; NEUT ABS # 6.02 K/uL (1.4-6.5); PLATELET COUNT 126 K/uL (130-400); RED CELL DISTRIBUTION WIDTH CV 13.1 % (11.5-14.5); RED CELL DISTRIBUTION WIDTH SD 41.6 fL (36.4-46.3); WHITE BLOOD COUNT 9.16 K/uL (4.8-10.8)
[2018-01-13 06:48] LABS: CALCIUM 7.8 mg/dl (8.5-10.1); CREATININE 1.09 mg/dl (0.60-1.40); POTASSIUM 3.5 mmol/L (3.5-5.1)
[2018-01-13] MEDS: BuPROPion SR 150 MG TABCR PO SCH ×2 (08:47→19:57)
[2018-01-13] MEDS: ARTIFICIAL TEARS OP SOLN OP SCH ×4 (08:48→19:57)
[2018-01-13] MEDS: ARTIFICIAL TEARS OP OINT 3.5 GM TUBE OP SCH ×5 (08:48→19:57)
[2018-01-13] MEDS ORDERED: POTASSIUM CHLORIDE 10 MEQ TABCR PO ONE (13:00)
--- NOTE | 2018-01-13 14:27 | Progress Note ---
Internal Med Progress Note Date of Service: Jan 13, 2018. Provider Documentation: SUBJECTIVE: still significantly orthostatic when standing up denies chest pain or sob no nausea eating fine normal bowel and bladder movements OBJECTIVE: Vital Signs-as noted below Exam: General-alert and oriented. ENT-Normal hearing Neck-no neck masses Lungs-cta b/l no wheezing no crackles present Heart-S1 and S2 heard regular rate and rhythm no murmurs Abdomen-Soft bowel sounds present non tender no distension Extremities-no edema no erythema Neuro-alert and awake moves extremities Lab data as noted below. ASSESSMENT & PLAN: : This is a 77-year-old male who presents with syncope. 1. Syncope, passed out 3-4 times since last 1 day of admission. mostly orthostatic hypotension from dehydration as was not eating much since dx of bells palsy echo small LV camber and moderate LVH otherwise unremarkable carotid Doppler negative ct head negative recent MRI negative await eeg neurology on board and appreciate inputs pt/ot 2. Orthostatic hypotension receive fluids but still orthostatic on Proscar and Flomax - both can cause orthostatic hypotension will stop Flomax and place stockings and monitor. 3. Acute renal failure and chronic kidney disease, stage II to III, baseline creatinine between 1 to 1.2, presents with creatinine of 1.8. on IV fluids. resolved. . 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 He finished the course of prednisone and symptoms are improving. If any concerns, we will do MRI of the head with contrast as he also had some difficulty swallowing few days back but that is getting better. Neuro on board.Improving. f/u neurology on discharge 5. Benign prostatic hyperplasia. On Proscar and Flomax. Stopping flomax for orthostatic hypotension monitor for urinary retention 6. Hyperlipidemia, not on medication. :LDL 53. HDL 28 7. Tobacco disorder. We will career and guidance counselor for smoking cessation. 8. Deep venous thrombosis prophylaxis. SCDs and TEDs for now. 8. Disposition: Monitor in tele floor. Expect discharge home and follow up with his family doctor. Level 1 full code. Possible d/c in 1-2 days Vital Signs: Date Time Temp Pulse Resp B/P (MAP) Pulse Ox O2 Delivery O2 Flow Rate FiO2 01/13/18 12:00 Room Air 01/13/18 11:55 36.7 75 18 150/76 (100) 96 79 94/62 (73) 78 92/55 (67) 01/13/18 10:07 69 01/13/18 08:00 Room Air 01/13/18 07:09 36.5 61 16 145/83 (103) 96 01/13/18 04:52 60 161/88 (112) 01/13/18 04:40 36.6 66 18 170/91 (117) 96 Room Air 01/13/18 04:00 Room Air 01/13/18 00:00 Room Air 01/12/18 23:06 78 149/75 (99) 01/12/18 22:46 36.7 68 20 170/93 (118) 97 Room Air 01/12/18 20:00 Room Air 01/12/18 19:19 36.6 68 18 165/90 (115) 97 Room Air 01/12/18 16:00 99 Room Air 01/12/18 15:45 36.4 69 18 147/78 (101) 99 Room Air Lab Results: Results Past 24 Hours Test 01/12/18 19:51 01/13/18 05:44 Range/Units Troponin I < 0.015 0-0.045 ng/ml White Blood Count 9.16 4.8-10.8 K/uL Red Blood Count 4.67 4.7-6.1 M/uL Hemoglobin 14.7 14.0-18.0 g/dL Hematocrit 41.2 42-52 % Mean Corpuscular Volume 88.2 80-100 fL Mean Corpuscular Hemoglobin 31.5 25-34 pg Mean Corpuscular Hemoglobin Concent 35.7 32-36 g/dl Platelet Count 126 130-400 K/uL Mean Platelet Volume 10.7 7.4-10.4 fL Neutrophils (%) (Auto) 65.8 % Lymphocytes (%) (Auto) 23.5 % Monocytes (%) (Auto) 7.3 % Eosinophils (%) (Auto) 2.9 % Basophils (%) (Auto) 0.2 % Neutrophils # (Auto) 6.02 1.4-6.5 K/uL Lymphocytes # (Auto) 2.15 1.2-3.4 K/uL Monocytes # (Auto) 0.67 0.11-0.59 K/uL Eosinophils # (Auto) 0.27 0-0.5 K/uL Basophils # (Auto) 0.02 0-0.2 K/uL RDW Standard Deviation 41.6 36.4-46.3 fL RDW Coefficient of Variation 13.1 11.5-14.5 % Immature Granulocyte % (Auto) 0.3 % Immature Granulocyte # (Auto) 0.03 0.00-0.02 K/uL Sodium Level 137 136-145 mmol/L Potassium Level 3.5 3.5-5.1 mmol/L Chloride Level 106 98-107 mmol/L Carbon Dioxide Level 23 21-32 mmol/L Anion Gap 8.0 3-11 mmol/L Blood Urea Nitrogen 14 7-18 mg/dl Creatinine 1.09 0.60-1.40 mg/dl Est Creatinine Clear Calc Drug Dose 67.8 ml/min Estimated GFR () 76.0 Estimated GFR (Non- 65.6 BUN/Creatinine Ratio 13.1 10-20 Random Glucose 89 70-99 mg/dl Calcium Level 7.8 8.5-10.1 mg/dl Magnesium Level 2.4 1.8-2.4 mg/dl
--- NOTE | 2018-01-13 14:40 | Neurology Progress Notes ---
Neurology Progress Note Date of Service Jan 13, 2018. Keturah Rose is 77 years old with PMH HTN, BPH who was diagnosed with acute right Barnes palsy with some problems with dysphagia for a while and then cleared up. He finished a course of prednisone and Acyclovir and the [place] palsy has been gradually improving. He is having some recurrent syncope events. it is usually when he stands too quickly and has a feeling of flushed with the episodes. Positional blood pressures were done and he was found to have orthostatic hypotension 150/76 lying/ 92/55 standing. He states his prostrate medication is being changed. denies CP, SOB, abdominal pain weakness numbness tingling N,V. + taste loss Objective Date Time Temp Pulse Resp B/P (MAP) Pulse Ox O2 Delivery O2 Flow Rate FiO2 01/13/18 12:00 Room Air 01/13/18 11:55 36.7 75 18 150/76 (100) 96 79 94/62 (73) 78 92/55 (67) 01/13/18 10:07 69 01/13/18 08:00 Room Air 01/13/18 07:09 36.5 61 16 145/83 (103) 96 01/13/18 04:52 60 161/88 (112) 01/13/18 04:40 36.6 66 18 170/91 (117) 96 Room Air 01/13/18 04:00 Room Air 01/13/18 00:00 Room Air 01/12/18 23:06 78 149/75 (99) 01/12/18 22:46 36.7 68 20 170/93 (118) 97 Room Air 01/12/18 20:00 Room Air 01/12/18 19:19 36.6 68 18 165/90 (115) 97 Room Air 01/12/18 16:00 99 Room Air 01/12/18 15:45 36.4 69 18 147/78 (101) 99 Room Air Last 24 Hours Test 01/12/18 19:51 01/13/18 05:44 Troponin I < 0.015 ng/ml White Blood Count 9.16 K/uL Red Blood Count 4.67 M/uL Hemoglobin 14.7 g/dL Hematocrit 41.2 % Mean Corpuscular Volume 88.2 fL Mean Corpuscular Hemoglobin 31.5 pg Mean Corpuscular Hemoglobin Concent 35.7 g/dl Platelet Count 126 K/uL Mean Platelet Volume 10.7 fL Neutrophils (%) (Auto) 65.8 % Lymphocytes (%) (Auto) 23.5 % Monocytes (%) (Auto) 7.3 % Eosinophils (%) (Auto) 2.9 % Basophils (%) (Auto) 0.2 % Neutrophils # (Auto) 6.02 K/uL Lymphocytes # (Auto) 2.15 K/uL Monocytes # (Auto) 0.67 K/uL Eosinophils # (Auto) 0.27 K/uL Basophils # (Auto) 0.02 K/uL RDW Standard Deviation 41.6 fL RDW Coefficient of Variation 13.1 % Immature Granulocyte % (Auto) 0.3 % Immature Granulocyte # (Auto) 0.03 K/uL Sodium Level 137 mmol/L Potassium Level 3.5 mmol/L Chloride Level 106 mmol/L Carbon Dioxide Level 23 mmol/L Anion Gap 8.0 mmol/L Blood Urea Nitrogen 14 mg/dl Creatinine 1.09 mg/dl Est Creatinine Clear Calc Drug Dose 67.8 ml/min Estimated GFR () 76.0 Estimated GFR (Non- 65.6 BUN/Creatinine Ratio 13.1 Random Glucose 89 mg/dl Calcium Level 7.8 mg/dl Magnesium Level 2.4 mg/dl Imaging: no new imaging Exam: Physical Exam: Constitutional:appearance nourished, healthy and normal Ears, Nose, Mouth and Throat: mucous membranes moist, no injection and skin normal, eyes normal Cardiovascular: normal S-1 and S-2 and regular rate and rhythm Respiratory: clear to auscultation (CTA) and no rales, rhonchi or wheeze Musculoskeletal: no peripheral edema 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 Strength: hand manager long term care biceps triceps 5/5 bilaterally, hip flex 5/5 Current Inpatient Medications Medications (Trade) Dose Ordered Sig/Héctor Route Start Time Stop Time Status Last Admin Dose Admin Acetaminophen (Tylenol Tab) 650 mg Q4H PRN PO 01/11/18 09:45 02/10/18 09:44 Ondansetron HCl (Zofran Inj) 4 mg Q6H PRN IV 01/11/18 09:45 02/10/18 09:44 Nitroglycerin (Nitrostat Tab) 0.4 mg UD PRN SL 01/11/18 09:45 02/10/18 09:44 Polyethylene (Miralax Powder Packet) 17 gm DAILY PRN PO 01/11/18 09:45 02/10/18 09:44 Artificial Tears (Lacri-Lube Oph Oint) 1 appln QID OP 01/11/18 13:00 02/10/18 12:59 01/13/18 13:42 1 APPLN Bupropion HCl (Wellbutrin-Sr Tab) 150 mg BID PO 01/11/18 21:00 02/10/18 20:59 01/13/18 08:47 150 MG Finasteride (Proscar Tab) 5 mg HS PO 01/11/18 21:00 02/10/18 20:59 01/12/18 21:12 5 MG Artificial Tears (Artificial Tears) 1 drops QID OP 01/11/18 13:00 02/10/18 12:59 01/13/18 13:42 1 DROPS Hydralazine HCl (HydrALAZINE INJ) 5 mg Q6 PRN IV. 01/11/18 09:45 02/10/18 09:44 Calcium Carbonate (Tums Chew Tab) 500 mg TID PRN PO 01/12/18 07:30 02/11/18 07:29 Lisinopril (Zestril Tab) 20 mg QPM PO 01/12/18 21:00 02/11/18 20:59 01/12/18 21:17 20 MG Impression 77 year old male s/p syncopal episodes. Plan 1. carotids with no significant stenosis 2. SMILEY with no ASD 3. orthostatic hypotension -primary service to adjust medication- flomax had been d/c 4. [place] palsy continue to follow with PCP - will see in our office if symptoms do not continue to improve 5. aspirin 81 mg daily if no contra indication 6. keep well hydrated decrease MT Dew and increase H2O intake 7. no further neurologic assessment needed/ call with questions concerns. I have seen and discussed above patient with Dr Bon Brandon, neurology Today is even better eeg normal no events of symncope flomax stoppedhe has been hydrated and duplex and echo are ok suspect he can be discharged soon if internists agree and in light of how well his bells is doing he likely does not need neurology to see unless his pcp would desire us to after discharge we are signing off at this time Bon Brandon MD
[2018-01-13] MEDS: LISINOPRIL 20 MG TAB PO SCH (19:57)
[2018-01-13] MEDS: FINASTERIDE 5 MG TAB PO SCH (19:57)
[2018-01-14] VITALS (7 sets, daily range): BP systolic 75–148; BP diastolic 50–88; PULSE 67–78; TEMP 36.3–36.9; O2SAT 95–97
[2018-01-14 06:43] LABS: BASO % 0.1 %; BASO ABS # 0.01 K/uL (0-0.2); EOS % 2.6 %; EOS ABS # 0.22 K/uL (0-0.5); HEMATOCRIT 41.2 % (42-52); HEMOGLOBIN 14.9 g/dL (14.0-18.0); IG# 0.03 K/uL (0.00-0.02); LYMPH % 20.9 %; LYMPH ABS # 1.79 K/uL (1.2-3.4); MEAN CELL VOLUME 87.7 fL (80-100); MEAN CORPUSCULAR HEMOGLOBIN 31.7 pg (25-34); MEAN CORPUSCULAR HGB CONC 36.2 g/dl (32-36); MEAN PLATELET VOLUME 10.6 fL (7.4-10.4); MONO % 9.3 %; NEUT % 66.7 %; NEUT ABS # 5.71 K/uL (1.4-6.5); PLATELET COUNT 113 K/uL (130-400); RED CELL DISTRIBUTION WIDTH CV 13.1 % (11.5-14.5); RED CELL DISTRIBUTION WIDTH SD 41.9 fL (36.4-46.3); WHITE BLOOD COUNT 8.56 K/uL (4.8-10.8)
[2018-01-14 07:12] LABS: CREATININE 1.17 mg/dl (0.60-1.40); POTASSIUM 3.8 mmol/L (3.5-5.1)
--- NOTE | 2018-01-14 07:56 | ELECTROENCEPHALOGRAPH REPORT ---
ORDERING PHYSICIAN: Dr. Saeed. CLINICAL DIAGNOSIS: Recurrent syncopal events. ELECTROENCEPHALOGRAM DIAGNOSIS: Essentially normal during wakefulness. DESCRIPTION OF TRACING: This EEG was done as a bedside recording with a simultaneous video analysis of patient movement and behavior. Photic stimulation was performed. Hyperventilation was not. Drowsiness and light sleep are not recorded. Under these conditions, there is evidence for normal appearing background rhythm in the alpha range of up to 9-10 Hz of maximum frequency and 30 microvolts of maximum amplitude. This is maximum posterior head regions and bilaterally symmetrical. Polymorphic mid frequency theta activity of modest voltage is seen over all head regions without clear focal or regional predominance. Anterior head region maximum bilaterally symmetrical low voltage fast activity in the beta range is present. Photic stimulation provoked some modest driving response without a photomyogenic or photoparoxysmal component. At no time during the waking tracing is there evidence for potentially epileptogenic activity in the form of polyspike or spike wave bursts, focal sharp waves or focal spikes. INTERPRETATION: This electroencephalography is essentially normal during wakefulness without evidence for focal or generalized encephalopathy without evidence for potentially epileptogenic activity.
[2018-01-14] MEDS: ARTIFICIAL TEARS OP OINT 3.5 GM TUBE OP SCH ×4 (09:14→20:39)
[2018-01-14] MEDS: ARTIFICIAL TEARS OP SOLN OP SCH ×4 (09:14→20:39)
[2018-01-14] MEDS: BuPROPion SR 150 MG TABCR PO SCH ×3 (09:14→20:37)
[2018-01-14] MEDS ORDERED: ALFUZosin TAB 10 MG TAB PO ONE (10:07)
[2018-01-14] MEDS ORDERED: SODIUM CHLORIDE 0.9% 500ML 500 ML IV SCH (10:15)
--- NOTE | 2018-01-14 12:11 | Progress Note ---
Medicine Progress Note Date & Time of Visit: Jan 14, 2018 at 12:10. Subjective seen resting in bed states he feels about the same still lightheaded when upright denies bladder pain (+) urinary retention with bladder scanning Objective Last 8 Hrs Date Time Temp Pulse Resp B/P (MAP) Pulse Ox O2 Delivery O2 Flow Rate FiO2 01/14/18 11:26 36.7 70 18 119/75 (90) 97 01/14/18 08:55 71 135/76 (95) 74 99/67 (78) 75 96/62 (73) 01/14/18 08:00 Room Air 01/14/18 07:24 36.6 78 18 98/58 (71) 95 01/14/18 04:13 36.9 67 18 147/84 (105) 95 Room Air 103/66 (78) 88/56 (67) Physical Exam: General- oriented x 3, not in distress, speaks in sentences with no effort Head- atraumatic Eyes- PERRL, EOMI, anicteric ENT- oropharynx clear Neck- supple, no JVD, no adenopathy, no thyromegaly; carotids +2/2, no bruits appreciated Lungs- clear to auscultation bilaterally Heart- regular rhythm; no murmur, normal rate Abdomen- normal bowel sounds, soft, nontender Extremities- no pretibial edema, no calf tenderness; peripheral pulses intact Neuro- alert, oriented x 3; no gross focal deficits Skin- warm & dry Laboratory Results: Last 24 Hours Test 01/14/18 06:18 White Blood Count 8.56 K/uL Red Blood Count 4.70 M/uL Hemoglobin 14.9 g/dL Hematocrit 41.2 % Mean Corpuscular Volume 87.7 fL Mean Corpuscular Hemoglobin 31.7 pg Mean Corpuscular Hemoglobin Concent 36.2 g/dl Platelet Count 113 K/uL Mean Platelet Volume 10.6 fL Neutrophils (%) (Auto) 66.7 % Lymphocytes (%) (Auto) 20.9 % Monocytes (%) (Auto) 9.3 % Eosinophils (%) (Auto) 2.6 % Basophils (%) (Auto) 0.1 % Neutrophils # (Auto) 5.71 K/uL Lymphocytes # (Auto) 1.79 K/uL Monocytes # (Auto) 0.80 K/uL Eosinophils # (Auto) 0.22 K/uL Basophils # (Auto) 0.01 K/uL RDW Standard Deviation 41.9 fL RDW Coefficient of Variation 13.1 % Immature Granulocyte % (Auto) 0.4 % Immature Granulocyte # (Auto) 0.03 K/uL Sodium Level 137 mmol/L Potassium Level 3.8 mmol/L Chloride Level 105 mmol/L Carbon Dioxide Level 25 mmol/L Anion Gap 7.0 mmol/L Blood Urea Nitrogen 11 mg/dl Creatinine 1.17 mg/dl Est Creatinine Clear Calc Drug Dose 62.8 ml/min Estimated GFR () 69.8 Estimated GFR (Non- 60.2 BUN/Creatinine Ratio 9.1 Random Glucose 93 mg/dl Calcium Level 8.0 mg/dl Magnesium Level 2.4 mg/dl Assessment & Plan : This is a 77-year-old male who presents with syncope. 1. Syncope, passed out 3-4 times since last 1 day of admission. mostly orthostatic hypotension from dehydration as was not eating much since dx of bells palsy echo small LV camber and moderate LVH otherwise unremarkable carotid Doppler negative ct head negative recent MRI negative eeg normal -- Neuro consulted no further work up at this time -- management of Orthostasis as noted below 2. Orthostatic hypotension receive fluids but still orthostatic on Proscar and Flomax - both can cause orthostatic hypotension stopped Flomax and place stockings and monitor -- still has orthostasis Alfuzosin tried, still has orthostasis -- will lower Lisinopril will d/c Tamsulosin and Alfuzosin given additional IV fluids continue compression stockings -- monitor if still positive, may need Midodrine 3. Acute renal failure and chronic kidney disease, stage II to III, baseline creatinine between 1 to 1.2, presents with creatinine of 1.8. -- given IV fluids -- resolved . 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 He finished the course of prednisone and symptoms are improving. -- Neurology consulted symptoms resolving 5. Benign prostatic hyperplasia. On Proscar and Flomax. Stopping flomax for orthostatic hypotension topped Flomax and place stockings and monitor -- still has orthostasis Alfuzosin tried, still has orthostasis -- (+) urinary retention -- discussed with Dr. Mak- Urology d/c Flomax and Alfuzosin place Chan catheter -- will need outpatient ff up with Urology in 1 week 6. Hyperlipidemia, not on medication. :LDL 53. HDL 28 7. Tobacco disorder. 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 8. Deep venous thrombosis prophylaxis. SCDs and TEDs for now. 8. Disposition: PT/OT in progress usually lives with family at home Current Inpatient Medications: Current Inpatient Medications Medications (Trade) Dose Ordered Sig/Héctor Route Start Time Stop Time Status Last Admin Dose Admin Acetaminophen (Tylenol Tab) 650 mg Q4H PRN PO 01/11/18 09:45 02/10/18 09:44 Ondansetron HCl (Zofran Inj) 4 mg Q6H PRN IV 01/11/18 09:45 02/10/18 09:44 Nitroglycerin (Nitrostat Tab) 0.4 mg UD PRN SL 01/11/18 09:45 02/10/18 09:44 Polyethylene (Miralax Powder Packet) 17 gm DAILY PRN PO 01/11/18 09:45 02/10/18 09:44 Artificial Tears (Lacri-Lube Oph Oint) 1 appln QID OP 01/11/18 13:00 02/10/18 12:59 01/14/18 09:14 1 APPLN Bupropion HCl (Wellbutrin-Sr Tab) 150 mg BID PO 01/11/18 21:00 02/10/18 20:59 01/14/18 09:14 150 MG Finasteride (Proscar Tab) 5 mg HS PO 01/11/18 21:00 02/10/18 20:59 01/13/18 19:57 5 MG Artificial Tears (Artificial Tears) 1 drops QID OP 01/11/18 13:00 02/10/18 12:59 01/14/18 09:14 1 DROPS Hydralazine HCl (HydrALAZINE INJ) 5 mg Q6 PRN IV. 01/11/18 09:45 02/10/18 09:44 Calcium Carbonate (Tums Chew Tab) 500 mg TID PRN PO 01/12/18 07:30 02/11/18 07:29 Lisinopril (Zestril Tab) 20 mg QPM PO 01/12/18 21:00 02/11/18 20:59 01/13/18 19:57 20 MG Sodium Chloride 500 ml @ 100 mls/hr Q5H IV 01/14/18 10:15 01/14/18 15:14 01/14/18 10:49 100 MLS/HR Alfuzosin HCl (Uroxatral Tab) 10 mg QAM PO 01/15/18 09:00 02/14/18 08:59
[2018-01-14] MEDS: LISINOPRIL 10 MG TAB PO SCH (20:38)
[2018-01-14] MEDS: FINASTERIDE 5 MG TAB PO SCH (20:39)
[2018-01-15 06:03] VITALS: BP 131/83; PULSE 73; TEMP 36.9; O2SAT 95
[2018-01-15 06:20] LABS: BASO % 0.2 %; BASO ABS # 0.02 K/uL (0-0.2); EOS % 1.5 %; EOS ABS # 0.15 K/uL (0-0.5); HEMATOCRIT 41.5 % (42-52); HEMOGLOBIN 15.2 g/dL (14.0-18.0); IG# 0.02 K/uL (0.00-0.02); LYMPH % 15.9 %; LYMPH ABS # 1.59 K/uL (1.2-3.4); MEAN CELL VOLUME 86.8 fL (80-100); MEAN CORPUSCULAR HEMOGLOBIN 31.8 pg (25-34); MEAN CORPUSCULAR HGB CONC 36.6 g/dl (32-36); MEAN PLATELET VOLUME 10.4 fL (7.4-10.4); MONO % 8.6 %; MONO ABS # 0.86 K/uL (0.11-0.59); NEUT % 73.6 %; NEUT ABS # 7.33 K/uL (1.4-6.5); PLATELET COUNT 116 K/uL (130-400); RED CELL DISTRIBUTION WIDTH CV 13.2 % (11.5-14.5); RED CELL DISTRIBUTION WIDTH SD 41.6 fL (36.4-46.3); WHITE BLOOD COUNT 9.97 K/uL (4.8-10.8)
[2018-01-15 06:58] LABS: CALCIUM 8.3 mg/dl (8.5-10.1); CREATININE 0.98 mg/dl (0.60-1.40); POTASSIUM 3.6 mmol/L (3.5-5.1)
[2018-01-15 07:46] VITALS: BP_SYST 125; BP_SYST 82; BP_SYST 93; BP_DIAS 52; BP_DIAS 63; BP_DIAS 78; PULSE 72; PULSE 73; PULSE 87; TEMP 36.9; O2SAT 97
[2018-01-15] MEDS: ARTIFICIAL TEARS OP OINT 3.5 GM TUBE OP SCH ×4 (08:59→20:47)
[2018-01-15] MEDS: ARTIFICIAL TEARS OP SOLN OP SCH ×4 (08:59→20:47)
[2018-01-15] MEDS ORDERED: ALFUZosin TAB 10 MG TAB PO SCH (09:00)
[2018-01-15 11:38] VITALS: BP 158/83; PULSE 76; TEMP 36.5; O2SAT 95
--- NOTE | 2018-01-15 13:17 | Urology Consultation ---
History General Date of Service: Jan 15, 2018. Chief Complaint: gross hematuria Primary Care Physician: Leon De Paz D.O. Pt seen a urologist before?: Yes History of Present Illness I am asked by Dr Chaidez to evaluate and treat patient for gross hematuria. he is admitted with syncope. He has postural hypotension with syncope. No source has been found. He had his flomax stopped and next tried alfuzosin but still had hypotension so is now on finasteride alone. he had retention up to 500mL yesterday and with his renal insufficiency had a Solis placed. A straight catheter was tried first and would not pass and stirred up some bleeding. A coude catheter was tried next and passed without difficulty. Urine is pink today. He has seen some clots pass. He was surprised at how much drained with Solis placement last night (700mL). He has a long h/o bph with a prostate biopsy done by Dr Wilks in 2007 with a gland measuring 99grams. Biopsy was benign. He also had a cysto in 2011 and at the time his prostate was very large and the bladder was very trabeculated. Laboratory Last 24 Hours Test 01/15/18 06:07 01/15/18 06:22 White Blood Count 9.97 K/uL Red Blood Count 4.78 M/uL Hemoglobin 15.2 g/dL Hematocrit 41.5 % Mean Corpuscular Volume 86.8 fL Mean Corpuscular Hemoglobin 31.8 pg Mean Corpuscular Hemoglobin Concent 36.6 g/dl Platelet Count 116 K/uL Mean Platelet Volume 10.4 fL Neutrophils (%) (Auto) 73.6 % Lymphocytes (%) (Auto) 15.9 % Monocytes (%) (Auto) 8.6 % Eosinophils (%) (Auto) 1.5 % Basophils (%) (Auto) 0.2 % Neutrophils # (Auto) 7.33 K/uL Lymphocytes # (Auto) 1.59 K/uL Monocytes # (Auto) 0.86 K/uL Eosinophils # (Auto) 0.15 K/uL Basophils # (Auto) 0.02 K/uL RDW Standard Deviation 41.6 fL RDW Coefficient of Variation 13.2 % Immature Granulocyte % (Auto) 0.2 % Immature Granulocyte # (Auto) 0.02 K/uL Sodium Level 137 mmol/L Potassium Level 3.6 mmol/L Chloride Level 107 mmol/L Carbon Dioxide Level 21 mmol/L Anion Gap 9.0 mmol/L Blood Urea Nitrogen 14 mg/dl Creatinine 0.98 mg/dl Est Creatinine Clear Calc Drug Dose 75.0 ml/min Estimated GFR () 86.5 Estimated GFR (Non- 74.6 BUN/Creatinine Ratio 13.9 Random Glucose 96 mg/dl Calcium Level 8.3 mg/dl Urine Color RED Urine Appearance CLOUDY Urine pH 5.5 Urine Specific [place] 1.024 Urine Protein 3+ Urine Glucose (UA) NEG Urine Ketones 1+ Urine Occult Blood 3+ Urine Nitrite NEG Urine Bilirubin NEG Urine Urobilinogen NEG Urine Leukocyte Esterase SMALL Urine WBC (Auto) >30 /hpf Urine RBC (Auto) >30 /hpf Urine Hyaline Casts (Auto) 0 /lpf Urine Epithelial Cells (Auto) >30 /lpf Urine Bacteria (Auto) NEG Urine Renal Epithelial Cells /lpf Urine Pathogenic Casts /lpf Labs were reviewed and are within normal limits unless listed below. Labs are available in the chart and at [facility] Problem List Medical Problems: (1) Barnes's palsy Status: Acute (2) Contusion of right shoulder Status: Acute (3) Dehydration Status: Acute (4) Fall Status: Acute (5) Hypertension Nos Status: Chronic (6) Hypertrophy (Benign) Of Prostate W/O Urinary Obst & Oth Luts Status: Chronic (7) Renal failure Status: Acute (8) Syncope Status: Acute Past History hypertension, other (tobacco abuse) Additional Comments: finger amputations right digits, prostate biopsy Family History Diabetes mellitus FH: heart disease FH: lung disease FHx: gallbladder disease Hypertension Social History Hx Tobacco Use In Past Year?: No Smoking: quit greater than 1 year Marital status: Housing status: lives with family Occupation status: retired History of MDRO No Allergies Coded Allergies: Alfuzosin (Verified Adverse Reaction, Intermediate, OTHER, 01/14/18) ORTHOSTATIC HYPOTENSION Tamsulosin (Verified Adverse Reaction, Intermediate, OTHER, 01/14/18) ORTHOSTATIC HYPOTENSION Medications Home Medications: Home Meds and Scripts Medications Dose Route/Sig Max Daily Dose Days Date Category Dose Instructions Artificial Tears (Artificial Tear Solution) 1 Susanna Susanna 1 Drops OP QID 01/02/18 Rx Lacri-Lube Sop Oph Oint (Artificial Tears) Oint 0.25-0.5 Inch OP QID 14 01/02/18 Rx TO THE AFFECTED EYE UP TO QID PRN Bupropion HCl Sr (Bupropion HCl) 150 Mg Tabcr 150 Mg PO BID 01/02/18 Reported Zestril (Lisinopril) 20 Mg Tab 20 Mg PO QPM 01/16/17 Reported Flomax (Tamsulosin Hcl) 0.4 Mg Cap 0.4 Mg PO HS 02/23/15 Reported Proscar (Finasteride) 5 Mg Tab 5 Mg PO HS 02/23/15 Reported Inpatient Medications: Current Inpatient Medications Medications (Trade) Dose Ordered Sig/Héctor Route Start Time Stop Time Status Last Admin Dose Admin Acetaminophen (Tylenol Tab) 650 mg Q4H PRN PO 01/11/18 09:45 02/10/18 09:44 Ondansetron HCl (Zofran Inj) 4 mg Q6H PRN IV 01/11/18 09:45 02/10/18 09:44 Nitroglycerin (Nitrostat Tab) 0.4 mg UD PRN SL 01/11/18 09:45 02/10/18 09:44 Polyethylene (Miralax Powder Packet) 17 gm DAILY PRN PO 01/11/18 09:45 02/10/18 09:44 Artificial Tears (Lacri-Lube Oph Oint) 1 appln QID OP 01/11/18 13:00 02/10/18 12:59 01/14/18 18:06 1 APPLN Finasteride (Proscar Tab) 5 mg HS PO 01/11/18 21:00 02/10/18 20:59 01/14/18 20:39 5 MG Artificial Tears (Artificial Tears) 1 drops QID OP 01/11/18 13:00 02/10/18 12:59 01/14/18 18:06 1 DROPS Hydralazine HCl (HydrALAZINE INJ) 5 mg Q6 PRN IV. 01/11/18 09:45 02/10/18 09:44 Calcium Carbonate (Tums Chew Tab) 500 mg TID PRN PO 01/12/18 07:30 02/11/18 07:29 Lisinopril (Zestril Tab) 10 mg QPM PO 01/14/18 21:00 02/11/18 20:59 01/14/18 20:38 10 MG Bupropion HCl (Wellbutrin-Sr Tab) 150 mg HS PO 01/14/18 21:00 02/10/18 20:59 Review of Systems Review of Systems Constitutional: + weight loss, No fever, No chills Eyes: + blurred vision Endocrine: + excessive thirst, + too cold, + tired/sluggish Gastrointestinal: No abdominal pain, No indigestion, No vomiting, No constipation Cardiovascular: No heart murmur, No chest pain, No irregular heartbeat, No swelling ankles/feet Respiratory: + shortness of breath, + chronic cough Musculoskeletal: + joint pain, + back pain, + arthritis Male : + urinary retention, + blood in urine, + nocturia more than once/night Physical Exam Vital Signs: Vital Signs Past 12 Hours Date Time Temp Pulse Resp B/P (MAP) Pulse Ox O2 Delivery O2 Flow Rate FiO2 01/15/18 12:00 Room Air 01/15/18 11:38 36.5 76 18 158/83 (108) 95 01/15/18 08:00 Room Air 01/15/18 07:46 36.9 72 18 125/78 (94) 97 73 93/63 (73) 87 82/52 (62) 01/15/18 06:03 36.9 73 18 131/83 (99) 95 Room Air 01/15/18 04:00 Room Air Physical Exam: General Appearance: WD/WN, no apparent distress, + obese Eyes: bilateral eyes normal inspection ENT: hearing grossly normal Neck: no adenopathy, no JVD, trachea midline Respiratory/Chest: no respiratory distress Gastrointestinal: Abdomen: normal abdomen Bladder: normal bladder Renal: normal renal Hernia: absent hernia Liver: normal liver Genitourinary - Male: Penis: normal penis Urethral Meatus: normal urethral meatus Testes: normal testes Scrotum: normal scrotum Anus / Perineum: normal anus/perineum Sphincter Tone: normal sphincter tone Prostate: pertinent finding (not cooperative with exam, only felt apex, no nosules) Extremities: non-tender, normal inspection, no pedal edema, no calf tenderness , + pertinent finding (missing 3 fingers right hand) Neurologic/Psychiatric: alert, normal mood/affect, oriented x 3 Skin: normal color, warm/dry, no rash Lymphatic: no adenopathy Assessment & Plan Assessment & Plan urinary retention traumatic solis keep solis for discharge home with solis keep solis cath securement device really high on the thigh so there is no tension on the solis. plan void trial in [facility] office on Saturday continue finasteride hold alpha blockers may need turp or HOLEP in future to resume spontaneous voiding prostate seems to big to allow self cath.
[2018-01-15 15:18] VITALS: BP 115/69; PULSE 81; TEMP 36.7; O2SAT 95
--- NOTE | 2018-01-15 17:18 | Progress Note ---
Medicine Progress Note Date & Time of Visit: Jan 15, 2018 at 17:13. Subjective Chan catheter had to be inserted last night this patient was having urinary retention Noted to have hematuria since then On exam patient was resting in bed comfortable States he was dizzy again when he stood up today [place] better after resting and laying flat Denies chest pain shortness of breath palpitations Denies abdominal pain Chan catheter output still noted to be red/pink Objective Last 8 Hrs Date Time Temp Pulse Resp B/P (MAP) Pulse Ox O2 Delivery O2 Flow Rate FiO2 01/15/18 16:00 Room Air 01/15/18 15:18 36.7 81 18 115/69 (84) 95 Room Air 01/15/18 12:00 Room Air 01/15/18 11:38 36.5 76 18 158/83 (108) 95 Physical Exam: General- oriented x 3, not in distress, speaks in sentences with no effort Eyes- anicteric ENT- oropharynx clear Neck- supple, no JVD, no adenopathy Lungs- clear to auscultation bilaterally Heart- regular rhythm; no murmur, normal rate Abdomen- normal bowel sounds, soft, nontender Extremities- no pretibial edema, no calf tenderness; peripheral pulses intact Neuro- alert, oriented x 3; no gross focal deficits Skin- warm & dry Laboratory Results: Last 24 Hours Test 01/15/18 06:07 01/15/18 06:22 White Blood Count 9.97 K/uL Red Blood Count 4.78 M/uL Hemoglobin 15.2 g/dL Hematocrit 41.5 % Mean Corpuscular Volume 86.8 fL Mean Corpuscular Hemoglobin 31.8 pg Mean Corpuscular Hemoglobin Concent 36.6 g/dl Platelet Count 116 K/uL Mean Platelet Volume 10.4 fL Neutrophils (%) (Auto) 73.6 % Lymphocytes (%) (Auto) 15.9 % Monocytes (%) (Auto) 8.6 % Eosinophils (%) (Auto) 1.5 % Basophils (%) (Auto) 0.2 % Neutrophils # (Auto) 7.33 K/uL Lymphocytes # (Auto) 1.59 K/uL Monocytes # (Auto) 0.86 K/uL Eosinophils # (Auto) 0.15 K/uL Basophils # (Auto) 0.02 K/uL RDW Standard Deviation 41.6 fL RDW Coefficient of Variation 13.2 % Immature Granulocyte % (Auto) 0.2 % Immature Granulocyte # (Auto) 0.02 K/uL Sodium Level 137 mmol/L Potassium Level 3.6 mmol/L Chloride Level 107 mmol/L Carbon Dioxide Level 21 mmol/L Anion Gap 9.0 mmol/L Blood Urea Nitrogen 14 mg/dl Creatinine 0.98 mg/dl Est Creatinine Clear Calc Drug Dose 75.0 ml/min Estimated GFR () 86.5 Estimated GFR (Non- 74.6 BUN/Creatinine Ratio 13.9 Random Glucose 96 mg/dl Calcium Level 8.3 mg/dl Urine Color RED Urine Appearance CLOUDY Urine pH 5.5 Urine Specific Pearson 1.024 Urine Protein 3+ Urine Glucose (UA) NEG Urine Ketones 1+ Urine Occult Blood 3+ Urine Nitrite NEG Urine Bilirubin NEG Urine Urobilinogen NEG Urine Leukocyte Esterase SMALL Urine WBC (Auto) >30 /hpf Urine RBC (Auto) >30 /hpf Urine Hyaline Casts (Auto) 0 /lpf Urine Epithelial Cells (Auto) >30 /lpf Urine Bacteria (Auto) NEG Urine Renal Epithelial Cells /lpf Urine Pathogenic Casts /lpf Date/Time Source Procedure Growth Status 01/15/18 06:22 Urine , Clean Catch Urine Culture Pending Received Assessment & Plan : This is a 77-year-old male who presents with syncope. 1. Syncope, passed out 3-4 times since last 1 day of admission. mostly orthostatic hypotension from dehydration as was not eating much since dx of bells palsy echo small LV camber and moderate LVH otherwise unremarkable carotid Doppler negative ct head negative recent MRI negative eeg normal -- Neuro consulted no further work up at this time -- management of Orthostasis as noted below 2. Orthostatic hypotension receive fluids but still orthostatic stopped Flomax and placed stockings -- still has orthostasis Alfuzosin tried, still has orthostasis --Lisinopril to 10 mg Discontinued tamsulosin and Alfuzosin given additional IV fluids continue compression stockings --Continue to monitor blood pressure today if still positive, may need Midodrine 3. Acute renal failure and chronic kidney disease, stage II to III, baseline creatinine between 1 to 1.2, presents with creatinine of 1.8. -- given IV fluids -- resolved . 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 He finished the course of prednisone and symptoms are improving. -- Neurology consulted symptoms resolving 5. Benign prostatic hyperplasia. On Proscar and Flomax. Stopping flomax for orthostatic hypotension topped Flomax and place stockings and monitor -- still has orthostasis Alfuzosin tried, still has orthostasis -- (+) urinary retention -- discussed with Dr. Mak- Urology d/c Flomax and Alfuzosin place Chan catheter --Positive hematuria Dr. Mak consulted Hematuria improving likely from insertion of Chan catheter Continue Chan catheter at this time We will need close outpatient monitoring care of Dr. Mak 6. Hyperlipidemia, not on medication. :LDL 53. HDL 28 7. Tobacco disorder. Smoking cessation counseling 8. Deep venous thrombosis prophylaxis. SCDs and TEDs for now given hematuria 8. Disposition: PT/OT in progress usually lives with family at home Management of orthostatic hypotension in progress Current Inpatient Medications: Current Inpatient Medications Medications (Trade) Dose Ordered Sig/Héctor Route Start Time Stop Time Status Last Admin Dose Admin Acetaminophen (Tylenol Tab) 650 mg Q4H PRN PO 01/11/18 09:45 02/10/18 09:44 Ondansetron HCl (Zofran Inj) 4 mg Q6H PRN IV 01/11/18 09:45 02/10/18 09:44 Nitroglycerin (Nitrostat Tab) 0.4 mg UD PRN SL 01/11/18 09:45 02/10/18 09:44 Polyethylene (Miralax Powder Packet) 17 gm DAILY PRN PO 01/11/18 09:45 02/10/18 09:44 Artificial Tears (Lacri-Lube Oph Oint) 1 appln QID OP 01/11/18 13:00 02/10/18 12:59 01/14/18 18:06 1 APPLN Finasteride (Proscar Tab) 5 mg HS PO 01/11/18 21:00 02/10/18 20:59 01/14/18 20:39 5 MG Artificial Tears (Artificial Tears) 1 drops QID OP 01/11/18 13:00 02/10/18 12:59 01/14/18 18:06 1 DROPS Hydralazine HCl (HydrALAZINE INJ) 5 mg Q6 PRN IV. 01/11/18 09:45 02/10/18 09:44 Calcium Carbonate (Tums Chew Tab) 500 mg TID PRN PO 01/12/18 07:30 02/11/18 07:29 Lisinopril (Zestril Tab) 10 mg QPM PO 01/14/18 21:00 02/11/18 20:59 01/14/18 20:38 10 MG Bupropion HCl (Wellbutrin-Sr Tab) 150 mg HS PO 01/14/18 21:00 02/10/18 20:59
[2018-01-15 19:16] VITALS: BP 106/68; PULSE 75; TEMP 36.9; O2SAT 95
[2018-01-15] MEDS: BuPROPion SR 150 MG TABCR PO SCH (20:47)
[2018-01-15] MEDS: LISINOPRIL 10 MG TAB PO SCH (20:48)
[2018-01-15] MEDS: FINASTERIDE 5 MG TAB PO SCH (20:48)
[2018-01-15 23:27] VITALS: BP 117/70; PULSE 74; TEMP 36.6; O2SAT 97
[2018-01-16] VITALS (9 sets, daily range): BP systolic 81–143; BP diastolic 52–80; PULSE 64–82; TEMP 36.7–37.7; O2SAT 94–97
[2018-01-16 05:54] LABS: BASO % 0.3 %; BASO ABS # 0.03 K/uL (0-0.2); EOS % 1.5 %; EOS ABS # 0.16 K/uL (0-0.5); HEMATOCRIT 41.6 % (42-52); HEMOGLOBIN 14.9 g/dL (14.0-18.0); IG# 0.04 K/uL (0.00-0.02); LYMPH % 19.3 %; LYMPH ABS # 2.02 K/uL (1.2-3.4); MEAN CELL VOLUME 89.1 fL (80-100); MEAN CORPUSCULAR HEMOGLOBIN 31.9 pg (25-34); MEAN CORPUSCULAR HGB CONC 35.8 g/dl (32-36); MEAN PLATELET VOLUME 10.9 fL (7.4-10.4); MONO % 8.4 %; MONO ABS # 0.88 K/uL (0.11-0.59); NEUT % 70.1 %; NEUT ABS # 7.34 K/uL (1.4-6.5); PLATELET COUNT 123 K/uL (130-400); RED CELL DISTRIBUTION WIDTH CV 13.6 % (11.5-14.5); RED CELL DISTRIBUTION WIDTH SD 43.4 fL (36.4-46.3); WHITE BLOOD COUNT 10.47 K/uL (4.8-10.8)
[2018-01-16 06:21] LABS: CALCIUM 8.4 mg/dl (8.5-10.1); CREATININE 1.22 mg/dl (0.60-1.40); POTASSIUM 3.6 mmol/L (3.5-5.1)
[2018-01-16] MEDS: ARTIFICIAL TEARS OP OINT 3.5 GM TUBE OP SCH ×4 (09:00→20:22)
[2018-01-16] MEDS: ARTIFICIAL TEARS OP SOLN OP SCH ×4 (09:00→20:22)
--- NOTE | 2018-01-16 11:46 | Progress Note ---
Medicine Progress Note Date & Time of Visit: Jan 16, 2018 at 11:46. Subjective Seen resting in bed, watching TV, comfortable States he felt less dizziness when standing up today Denies chest pain shortness of breath headaches No abdominal pain, hematuria resolved No other symptoms Objective Last 8 Hrs Date Time Temp Pulse Resp B/P (MAP) Pulse Ox O2 Delivery O2 Flow Rate FiO2 01/16/18 11:09 36.9 69 18 125/71 (89) 94 Room Air 01/16/18 08:33 74 116/67 (83) 81 82/55 (64) 82 81/52 (62) 01/16/18 08:00 Room Air 01/16/18 07:27 36.8 68 18 117/71 (86) 96 Room Air 01/16/18 04:26 36.8 64 16 122/72 (89) 97 Room Air 01/16/18 04:00 Room Air Physical Exam: General- oriented x 3, not in distress, speaks in sentences with no effort Eyes- anicteric Neck- no adenopathy Lungs- clear breath sounds bilaterally Heart- regular rhythm; no murmur, normal rate Abdomen- normal bowel sounds, soft, nontender Chan catheter in place, no hematuria Extremities- no pretibial edema, no calf tenderness Neuro- alert, oriented x 3; no gross focal deficits Skin- warm & dry Laboratory Results: Last 24 Hours Test 01/16/18 05:26 White Blood Count 10.47 K/uL Red Blood Count 4.67 M/uL Hemoglobin 14.9 g/dL Hematocrit 41.6 % Mean Corpuscular Volume 89.1 fL Mean Corpuscular Hemoglobin 31.9 pg Mean Corpuscular Hemoglobin Concent 35.8 g/dl Platelet Count 123 K/uL Mean Platelet Volume 10.9 fL Neutrophils (%) (Auto) 70.1 % Lymphocytes (%) (Auto) 19.3 % Monocytes (%) (Auto) 8.4 % Eosinophils (%) (Auto) 1.5 % Basophils (%) (Auto) 0.3 % Neutrophils # (Auto) 7.34 K/uL Lymphocytes # (Auto) 2.02 K/uL Monocytes # (Auto) 0.88 K/uL Eosinophils # (Auto) 0.16 K/uL Basophils # (Auto) 0.03 K/uL RDW Standard Deviation 43.4 fL RDW Coefficient of Variation 13.6 % Immature Granulocyte % (Auto) 0.4 % Immature Granulocyte # (Auto) 0.04 K/uL Sodium Level 138 mmol/L Potassium Level 3.6 mmol/L Chloride Level 108 mmol/L Carbon Dioxide Level 22 mmol/L Anion Gap 8.0 mmol/L Blood Urea Nitrogen 18 mg/dl Creatinine 1.22 mg/dl Est Creatinine Clear Calc Drug Dose 59.5 ml/min Estimated GFR () 66.3 Estimated GFR (Non- 57.2 BUN/Creatinine Ratio 14.9 Random Glucose 100 mg/dl Calcium Level 8.4 mg/dl Assessment & Plan : This is a 77-year-old male who presents with syncope. 1. Syncope, passed out 3-4 times since last 1 day of admission. mostly orthostatic hypotension from dehydration as was not eating much since dx of bells palsy echo small LV camber and moderate LVH otherwise unremarkable carotid Doppler negative ct head negative recent MRI negative eeg normal -- Neuro consulted no further work up at this time -- management of Orthostasis as noted below 2. Orthostatic hypotension receive fluids but still orthostatic stopped Flomax and placed stockings -- still has orthostasis Alfuzosin tried, still has orthostasis --Lisinopril decreased to 10 mg Discontinued tamsulosin and Alfuzosin given additional IV fluids continue compression stockings --01/16/2018 The patient still has orthostasis but is improving We will further reduce lisinopril to 5 mg Continue orthostatic vital signs monitoring If still positive we will add midodrine 3. Acute renal failure and chronic kidney disease, stage II to III, baseline creatinine between 1 to 1.2, presents with creatinine of 1.8. -- given IV fluids -- resolved . 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 He finished the course of prednisone and symptoms are improving. -- Neurology consulted symptoms resolving 5. Benign prostatic hyperplasia. On Proscar and Flomax. Stopping flomax for orthostatic hypotension topped Flomax and place stockings and monitor -- still has orthostasis Alfuzosin tried, still has orthostasis -- (+) urinary retention -- discussed with Dr. Mak- Urology d/c Flomax and Alfuzosin place Chan catheter --Positive hematuria Dr. Mak consulted Hematuria improving likely from insertion of Chan catheter Continue Chan catheter at this time We will need close outpatient monitoring care of Dr. Mak --01/16/2018 No hematuria 6. Hyperlipidemia, not on medication. :LDL 53. HDL 28 7. Tobacco disorder. Smoking cessation counseling 8. Deep venous thrombosis prophylaxis. SCDs and TEDs for now given hematuria 8. Disposition: Patient referred to rehab, awaiting acceptance Current Inpatient Medications: Current Inpatient Medications Medications (Trade) Dose Ordered Sig/Héctor Route Start Time Stop Time Status Last Admin Dose Admin Acetaminophen (Tylenol Tab) 650 mg Q4H PRN PO 01/11/18 09:45 02/10/18 09:44 Ondansetron HCl (Zofran Inj) 4 mg Q6H PRN IV 01/11/18 09:45 02/10/18 09:44 Nitroglycerin (Nitrostat Tab) 0.4 mg UD PRN SL 01/11/18 09:45 02/10/18 09:44 Polyethylene (Miralax Powder Packet) 17 gm DAILY PRN PO 01/11/18 09:45 02/10/18 09:44 Artificial Tears (Lacri-Lube Oph Oint) 1 appln QID OP 01/11/18 13:00 02/10/18 12:59 01/14/18 18:06 1 APPLN Finasteride (Proscar Tab) 5 mg HS PO 01/11/18 21:00 02/10/18 20:59 01/15/18 20:48 5 MG Artificial Tears (Artificial Tears) 1 drops QID OP 01/11/18 13:00 02/10/18 12:59 01/14/18 18:06 1 DROPS Hydralazine HCl (HydrALAZINE INJ) 5 mg Q6 PRN IV. 01/11/18 09:45 02/10/18 09:44 Calcium Carbonate (Tums Chew Tab) 500 mg TID PRN PO 01/12/18 07:30 02/11/18 07:29 Lisinopril (Zestril Tab) 10 mg QPM PO 01/14/18 21:00 02/11/18 20:59 01/15/18 20:48 10 MG Bupropion HCl (Wellbutrin-Sr Tab) 150 mg HS PO 01/14/18 21:00 02/10/18 20:59
[2018-01-16] MEDS: BuPROPion SR 150 MG TABCR PO SCH (20:22)
[2018-01-16] MEDS: FINASTERIDE 5 MG TAB PO SCH (20:23)
[2018-01-16] MEDS ORDERED: LISINOPRIL 5 MG TAB PO SCH (21:00)
[2018-01-17 04:45] VITALS: BP_SYST 114; BP_SYST 88; BP_SYST 97; BP_DIAS 56; BP_DIAS 62; BP_DIAS 74; PULSE 72; PULSE 74; PULSE 76; TEMP 37; O2SAT 95
[2018-01-17 07:13] VITALS: BP_SYST 122; BP_SYST 85; BP_SYST 95; BP_DIAS 53; BP_DIAS 63; BP_DIAS 72; PULSE 69; PULSE 75; PULSE 77; TEMP 37.1; O2SAT 94
[2018-01-17] MEDS: ARTIFICIAL TEARS OP SOLN OP SCH (07:44)
[2018-01-17] MEDS: ARTIFICIAL TEARS OP OINT 3.5 GM TUBE OP SCH (07:45)
[2018-01-17] MEDS ORDERED: SODIUM CHLORIDE 0.9% 500ML 500 ML IV SCH (09:00)
[2018-01-17] MEDS ORDERED: NURSING VERBAL MED ORDER ONE (09:30)
[2018-01-17] MEDS ORDERED: ARTIFICIAL TEARS OP OINT 3.5 GM TUBE OP PRN (09:45)
[2018-01-17] MEDS ORDERED: ARTIFICIAL TEARS OP SOLN OP PRN (09:45)
[2018-01-17 11:03] VITALS: BP 117/71; PULSE 66; TEMP 36.7; O2SAT 96
[2018-01-17 15:13] VITALS: BP_SYST 113; BP_SYST 120; BP_SYST 91; BP_DIAS 53; BP_DIAS 62; BP_DIAS 67; PULSE 69; PULSE 74; TEMP 36.3; O2SAT 94
--- NOTE | 2018-01-17 17:48 | Progress Note ---
Medicine Progress Note Date & Time of Visit: Jan 17, 2018 at 17:45. Subjective Seen resting in bed comfortable States that he felt less dizzy with standing up today No bladder pain No other symptoms Objective Last 8 Hrs Date Time Temp Pulse Resp B/P (MAP) Pulse Ox O2 Delivery O2 Flow Rate FiO2 01/17/18 16:06 Room Air 01/17/18 15:13 36.3 69 18 120/62 (81) 94 Room Air 74 113/67 (82) 74 91/53 (66) 01/17/18 12:06 Room Air 01/17/18 11:03 36.7 66 18 117/71 (86) 96 Room Air Physical Exam: General- oriented x 3, not in distress, speaks in sentences with no effort Eyes- anicteric Neck- no adenopathy Lungs- clear BS bilaterally no rales no wheezing Heart- regular rhythm; no murmur, normal rate Abdomen- normal bowel sounds, soft, nontender Chan catheter in place, no hematuria Extremities- no pretibial edema, no calf tenderness Neuro- alert, oriented x 3; no gross focal deficits Skin- warm & dry Assessment & Plan : This is a 77-year-old male who presents with syncope. 1. Syncope, passed out 3-4 times since last 1 day of admission. mostly orthostatic hypotension from dehydration as was not eating much since dx of bells palsy echo small LV camber and moderate LVH otherwise unremarkable carotid Doppler negative ct head negative recent MRI negative eeg normal -- Neuro consulted no further work up at this time -- management of Orthostasis as noted below 2. Orthostatic hypotension receive fluids but still orthostatic stopped Flomax and placed stockings -- still has orthostasis Alfuzosin tried, still has orthostasis --Lisinopril decreased to 10 mg Discontinued tamsulosin and Alfuzosin given additional IV fluids continue compression stockings --01/16/2018 The patient still has orthostasis but is improving We will further reduce lisinopril to 5 mg Continue orthostatic vital signs monitoring If still positive we will add midodrine 01/17/2018 Blood pressure in the 120s systolic Still has some orthostasis We will try discontinuing lisinopril and monitor blood pressure If still positive for orthostasis and symptomatic we will start fludrocortisone 3. Acute renal failure and chronic kidney disease, stage II to III, baseline creatinine between 1 to 1.2, presents with creatinine of 1.8. -- given IV fluids -- resolved . 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 He finished the course of prednisone and symptoms are improving. -- Neurology consulted symptoms resolving 5. Benign prostatic hyperplasia. On Proscar and Flomax. Stopping flomax for orthostatic hypotension topped Flomax and place stockings and monitor -- still has orthostasis Alfuzosin tried, still has orthostasis -- (+) urinary retention -- discussed with Dr. Mka- Urology d/c Flomax and Alfuzosin place Chan catheter --Positive hematuria Dr. Mak consulted Hematuria improving likely from insertion of Chan catheter Continue Chan catheter at this time We will need close outpatient monitoring care of Dr. Mak 01/17/2018 No hematuria 6. Hyperlipidemia, not on medication. :LDL 53. HDL 28 7. Tobacco disorder. Smoking cessation counseling 8. Deep venous thrombosis prophylaxis. SCDs and TEDs for now given hematuria 8. Disposition: Patient referred to rehab, awaiting acceptance Current Inpatient Medications: Current Inpatient Medications Medications (Trade) Dose Ordered Sig/Héctor Route Start Time Stop Time Status Last Admin Dose Admin Acetaminophen (Tylenol Tab) 650 mg Q4H PRN PO 01/11/18 09:45 02/10/18 09:44 Ondansetron HCl (Zofran Inj) 4 mg Q6H PRN IV 01/11/18 09:45 02/10/18 09:44 Nitroglycerin (Nitrostat Tab) 0.4 mg UD PRN SL 01/11/18 09:45 02/10/18 09:44 Polyethylene (Miralax Powder Packet) 17 gm DAILY PRN PO 01/11/18 09:45 02/10/18 09:44 Finasteride (Proscar Tab) 5 mg HS PO 01/11/18 21:00 02/10/18 20:59 01/16/18 20:23 5 MG Hydralazine HCl (HydrALAZINE INJ) 5 mg Q6 PRN IV. 01/11/18 09:45 02/10/18 09:44 Calcium Carbonate (Tums Chew Tab) 500 mg TID PRN PO 01/12/18 07:30 02/11/18 07:29 Bupropion HCl (Wellbutrin-Sr Tab) 150 mg HS PO 01/14/18 21:00 02/10/18 20:59 Artificial Tears (Lacri-Lube Oph Oint) 1 appln QID PRN OP 01/17/18 09:45 02/16/18 09:44 Artificial Tears (Artificial Tears) 1 drops QID PRN OP 01/17/18 09:45 02/16/18 09:44
[2018-01-17 19:10] VITALS: BP 110/64; PULSE 78; TEMP 36.7; O2SAT 94
[2018-01-17] MEDS: BuPROPion SR 150 MG TABCR PO SCH (20:52)
[2018-01-17] MEDS: FINASTERIDE 5 MG TAB PO SCH (20:53)
[2018-01-17 23:39] VITALS: BP 143/77; PULSE 67; TEMP 36.9; O2SAT 94
[2018-01-18] VITALS (7 sets, daily range): BP systolic 99–149; BP diastolic 66–81; PULSE 64–79; TEMP 36.5–36.9; O2SAT 93–96
--- NOTE | 2018-01-18 11:47 | Progress Note ---
Medicine Progress Note Date & Time of Visit: Jan 18, 2018 at 11:41. Subjective Seen resting in bed comfortable In good spirits Did not feel dizzy when standing up today Also ambulated with no symptoms States he feels better overall No abdominal pain No hematuria Denies other symptoms States he is ready and would like to be discharged today Objective Last 8 Hrs Date Time Temp Pulse Resp B/P (MAP) Pulse Ox O2 Delivery O2 Flow Rate FiO2 01/18/18 11:34 36.5 64 18 149/80 (103) 93 01/18/18 10:07 79 119/69 (86) 01/18/18 08:15 Room Air 01/18/18 07:22 36.6 64 18 131/68 (89) 96 Room Air 2.0 134/72 (92) 99/66 (77) 01/18/18 04:39 36.9 66 20 141/69 (93) 94 Room Air 01/18/18 04:05 Room Air Physical Exam: General- oriented x 3, not in distress, speaks in sentences with no effort Eyes- anicteric Lungs- clear breath sounds bilaterally Heart- regular rhythm; no murmur, normal rate Abdomen- normal bowel sounds, soft, nontender Chan catheter in place, no hematuria Extremities- no pretibial edema, no calf tenderness Neuro- alert, oriented x 3; no gross focal deficits Skin- warm & dry Assessment & Plan This is a 77-year-old male who presents with syncope. 1. Syncope, passed out 3-4 times since last 1 day of admission. mostly orthostatic hypotension from dehydration as was not eating much since dx of bells palsy echo small LV camber and moderate LVH otherwise unremarkable carotid Doppler negative ct head negative recent MRI negative eeg normal -- Neuro consulted no further work up at this time -- management of Orthostasis as noted below 2. Orthostatic hypotension receive fluids but still orthostatic stopped Flomax and placed stockings -- still has orthostasis Alfuzosin tried, still has orthostasis --Lisinopril decreased to 10 mg Discontinued tamsulosin and Alfuzosin given additional IV fluids continue compression stockings --01/16/2018 The patient still has orthostasis but is improving We will further reduce lisinopril to 5 mg Continue orthostatic vital signs monitoring If still positive we will add midodrine 01/17/2018 Blood pressure in the 120s systolic Still has some orthostasis We will try discontinuing lisinopril and monitor blood pressure If still positive for orthostasis and symptomatic we will start fludrocortisone Orthostatic vital signs improving Lowest blood pressure systolic 99 Dizziness has resolved Ambulating with no symptoms Continue to monitor blood pressure while off lisinopril If antihypertensive is to be started, will need to start with a low dose and monitor for orthostasis closely 3. Acute renal failure and chronic kidney disease, stage II to III, baseline creatinine between 1 to 1.2, presents with creatinine of 1.8. -- given IV fluids -- resolved . 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 He finished the course of prednisone and symptoms are improving. -- Neurology consulted symptoms resolving 5. Benign prostatic hyperplasia. On Proscar and Flomax. Stopping flomax for orthostatic hypotension topped Flomax and place stockings and monitor -- still has orthostasis Alfuzosin tried, still has orthostasis -- (+) urinary retention -- discussed with Dr. Mak- Urology d/c Flomax and Alfuzosin place Chan catheter --Positive hematuria Dr. Mak consulted Hematuria improving likely from insertion of Chan catheter Continue Chan catheter at this time We will need close outpatient monitoring care of Dr. Mak No hematuria Follow-up with urologist Dr. Brenda Mak on Saturday, January 20, 2018 Tel. no. 6. Hyperlipidemia, not on medication. :LDL 53. HDL 28 7. Tobacco disorder. Smoking cessation counseling 8. Deep venous thrombosis prophylaxis. SCDs and TEDs for now given hematuria 8. Disposition: Transition to [facility] today Follow-up with urologist in [facility] Dr. Brenda Mak on Saturday, January 20, 2018 Follow-up with primary care physician in 1 week upon discharge from [facility] Current Inpatient Medications: Current Inpatient Medications Medications (Trade) Dose Ordered Sig/Héctor Route Start Time Stop Time Status Last Admin Dose Admin Acetaminophen (Tylenol Tab) 650 mg Q4H PRN PO 01/11/18 09:45 02/10/18 09:44 Ondansetron HCl (Zofran Inj) 4 mg Q6H PRN IV 01/11/18 09:45 02/10/18 09:44 Nitroglycerin (Nitrostat Tab) 0.4 mg UD PRN SL 01/11/18 09:45 02/10/18 09:44 Polyethylene (Miralax Powder Packet) 17 gm DAILY PRN PO 01/11/18 09:45 02/10/18 09:44 Finasteride (Proscar Tab) 5 mg HS PO 01/11/18 21:00 02/10/18 20:59 01/17/18 20:53 5 MG Hydralazine HCl (HydrALAZINE INJ) 5 mg Q6 PRN IV. 01/11/18 09:45 02/10/18 09:44 Calcium Carbonate (Tums Chew Tab) 500 mg TID PRN PO 01/12/18 07:30 02/11/18 07:29 Bupropion HCl (Wellbutrin-Sr Tab) 150 mg HS PO 01/14/18 21:00 02/10/18 20:59 Artificial Tears (Lacri-Lube Oph Oint) 1 appln QID PRN OP 01/17/18 09:45 02/16/18 09:44 Artificial Tears (Artificial Tears) 1 drops QID PRN OP 01/17/18 09:45 02/16/18 09:44
[2018-01-18] MEDS ORDERED: WLLSR150 PO (11:50)
--- NOTE | 2018-01-18 11:54 | Discharge Instructions ---
Discharge Instructions Date of Service Jan 18, 2018. Admission Reason for Admission: Renal Failure, Syncope Discharge Discharge Diagnosis / Problem: SYNCOPE SECONDARY TO ORTHOSTATIC HYPOTENSION Discharge Goals Goal(s): Diagnostic testing, Therapeutic intervention Activity Recommendations Activity Level: Assistance Required Therapies: Physical Therapy, Occupational Therapy . Additional Information Patient informed of condition: Yes Advance Directives: No (UNKNOWN) DNR: No (PATIENT IS A FULL CODE) Level of Care: Acute Rehab Communicable Disease: No Prognosis: Improving Kiser Catheter: Yes Instructions / Follow-Up Instructions / Follow-Up PLEASE MONITOR ORTHOSTATIC BLOOD PRESSURE. FALL PRECAUTIONS PLEASE. MAINTAIN KISER CATHETER AND FOLLOW UP WITH UROLOGIST DR. DAKOTA ANGUIANO ON Saturday01/20/18. PLEASE REFER TO HOSPITAL COURSE BELOW FOR FURTHER DETAILS. Current Hospital Diet Patient's current hospital diet: AHA Diet (Heart Healthy) Discharge Diet Recommended Diet: AHA Diet (Heart Healthy) Procedures Procedures Performed: CT HEAD, CHEST XRAY, CAROTID US Pending Studies Studies pending at discharge: no Physician Orders On Transfer Special Precautions: PLEASE MONITOR ORTHOSTATIC BLOOD PRESSURE. FALL PRECAUTIONS PLEASE. MAINTAIN KISER CATHETER AND FOLLOW UP WITH UROLOGIST DR. DAKOTA ANGUIANO ON Saturday01/20/18. PLEASE REFER TO HOSPITAL COURSE BELOW FOR FURTHER DETAILS. Laboratory Results Lipid Panel Test 01/12/18 07:01 Range/Units Triglycerides Level 132 0-150 mg/dl Cholesterol Level 107 0-200 mg/dl HDL Cholesterol 28 mg/dl Cholesterol/HDL Ratio 3.8 LDL Cholesterol, Calculated 53 mg/dl Medical Emergencies . Who to Call and When: Medical Emergencies: If at any time you feel your situation is an emergency, please call 911 immediately. . Non-Emergent Contact Non-Emergency issues call your: Primary Care Provider, Urologist Call Non-Emergent contact if: you have a fever, your pain is not controlled, your pain is worsening, you have any medication questions . 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 "Provider Documentation" section prepared by Poncho Chaidez. . Core Measure Problem Core Measures: None
--- NOTE | 2018-01-18 12:04 | Discharge Summary ---
Discharge Summary Date of Service Jan 18, 2018. Discharge Summary Admission Date: Jan 11, 2018 at 09:37 Discharge Date: Jan 18, 2018 Discharge Disposition: Acute care facility Principal Diagnosis: Syncope secondary to Orthostasis Secondary Diagnoses/Problems: Please refer to hospital course below. Procedures: ECHO: Small, underfilled LV chamber with moderate concentric LVH. Normal LV systolic function, EF 55-60%. No segmental left ventricular wall motion abnormalities are noted. Grade I diastolic dysfunction. Aortic valve sclerosis mild, without significant aortic valvular stenosis. Small, loculated anterior pericardial effusion with stranding to suggest chronicity. * The interatrial septum is intact with no evidence for an atrial septal defect. * Injection of contrast documented no interatrial shunt. CT SCAN OF THE BRAIN WITHOUT IV CONTRAST CLINICAL HISTORY: Trauma. Fall. Syncope. COMPARISON STUDY: MRI of the brain dated 01/02/2018. TECHNIQUE: Unenhanced axial CT scan of the brain is performed from the vertex to the skull base. A dose lowering technique was utilized adhering to the principles of ALARA. CT DOSE: 614.27 mGy.cm FINDINGS: Brain parenchyma: There are age-related involutional changes noting moderate confluent subcortical and periventricular microangiopathic change. There is no hemorrhage, mass effect, or evidence of acute territorial ischemia by CT criteria. Mooney-white matter is preserved. No extra-axial fluid collection is seen. Ventricles, sulci, cisterns: Prominent secondary to involutional change. Intracranial vasculature: There is atherosclerotic calcification of the cavernous carotid and vertebral arteries. Calvarium: The skeletal structures are osteopenic. No depressed calvarial fracture is seen. Sinuses and mastoids: The visualized paranasal sinuses are clear. The mastoid air cells are well pneumatized. Orbits: The bony orbits are grossly intact. There is evidence of bilateral ocular lens surgery. IMPRESSION: There is no hemorrhage, mass effect, or evidence of acute territorial ischemia by CT criteria. SINGLE VIEW CHEST CLINICAL HISTORY: Atypical chest pain. FINDINGS: An AP, portable, upright chest radiograph is compared to study dated 01/02/2018. The examination is degraded by portable technique and patient rotation. The heart is mildly enlarged and there is atherosclerotic calcification of the thoracic aorta. The pulmonary vasculature is noncongested. There is left basilar atelectasis. The lungs and pleural spaces are otherwise clear. No pneumothorax is seen. The skeletal structures appear osteopenic. A right shoulder arthroplasty is in place. Degenerative change is noted throughout the thoracic spine. IMPRESSION: Mild cardiomegaly with no acute cardiopulmonary abnormality. ULTRASOUND OF THE CAROTID ARTERIES CLINICAL HISTORY: Syncope. COMPARISON STUDY: No priors. TECHNIQUE: Real-time, grayscale, and color Doppler sonography of the carotid arteries is performed. Images are reviewed in the transverse and longitudinal planes. FINDINGS: Blood pressure in the right arm measures 112/71 and blood pressure in the left arm measures 104/64. The carotid arteries are patent bilaterally and demonstrate antegrade flow. There is mild atherosclerotic plaque seen bilateral. Normal doppler arterial waveforms are seen throughout. Velocity measurements are listed below. Common carotid peak systolic velocity (cm/sec): RIGHT: 65 LEFT: 71 ICA proximal peak systolic velocity (cm/sec): RIGHT: 49 LEFT: 40 ICA mid peak systolic velocity (cm/sec): RIGHT: 63 LEFT: 48 ICA distal peak systolic velocity (cm/sec): RIGHT: 55 LEFT: 104 ICA/CC peak systolic ratio: RIGHT: 1.0 LEFT: 1.5 Antegrade flow was shown in the vertebral arteries. The external carotid arteries are patent. IMPRESSION: 1. There is no sonographic evidence of hemodynamically significant stenosis in the right or left carotid arterial system. 2. Antegrade flow is shown in the vertebral arteries. Electronically signed by: Ramiro Holland M.D. 01/11/2018 1:02 PM Consultations: UROLOGIST DR. DAKOTA ANGUIANO Pending Studies/Follow-Up: PLEASE REFER TO HOSPITAL COURSE BELOW. Medication Reconciliation New Medications: Bupropion HCl (Bupropion HCl Sr) 150 Mg Tabcr 150 MG PO HS for 15 Days, #15 TAB 0 Refills Continued Medications: Artificial Tear Solution (Artificial Tears) 1 Susanna Susanna 1 DROPS OP QID, #30 ML 5 Refills Finasteride (Proscar) 5 Mg Tab 5 MG PO HS, TAB Discontinued Medications: Bupropion HCl (Bupropion HCl Sr) 150 Mg Tabcr 150 MG PO BID Lisinopril (Zestril) 20 Mg Tab 20 MG PO QPM, TAB Tamsulosin Hcl (Flomax) 0.4 Mg Cap 0.4 MG PO HS, CAP Admission Information HPI (per Admitting provider): DATE OF ADMISSION: 01/11/2018 CHIEF COMPLAINT: Syncope. 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 The patient since last 1 day, he fell 4 times. Patient says while walking he felt some dizzy and passing out, and as soon as he hit the head on the floor he got his consciousness back and was not confused after that and no seizure like activity. He has some headaches from the fall. Denies any fever or chills. No cough, no shortness of breath, no chest pain. No nausea, no vomiting. No earaches. No runny nose. He had some sore throat before, that is gone. He was not eating and drinking good for the last few weeks, mainly since Barnes's palsy, and lost several pounds of weight. He had a normal bowel movement yesterday. Normal bladder movements. No blood in the stools, or blood in the urine. No rash. No history of tick bites. No abdominal pain. The patient saw family doctor a few days back and at that time he was still having problems with swallowing food and difficulty closing of the right eye and facial droop and family doctor was considering repeating MRI with contrast, but the patient says since he visited his family doctor, his symptoms are improved and he is eating better since last 2 days,. Currently, blood pressure seems to be okay. Resting comfortably and hemodynamically stable. ALLERGIES: No known drug allergies. PAST MEDICAL HISTORY: As mentioned above. PAST SURGICAL HISTORY: Colonoscopy with biopsy, tubulovillous adenoma and polypectomy, dental surgery, incision and drainage of the right forearm and wrist, right thumb tendon repair, biopsy of prostate, entropion eyelid repair, orchiectomy radical left, left inguinal hernia repair, right inguinal hernia repair, umbilical hernia repair. MEDICATIONS: Currently, the patient is on artificial tears, bupropion extended release 150 mg p.o. b.i.d., Proscar 5 mg p.o. daily, lisinopril 20 mg p.o. daily, Flomax 0.4 mg p.o. daily, ProAir HFA 2 puffs 4 times daily. FAMILY HISTORY: Significant for father had colon cancer, mother had colon and breast cancer, brother has lymphoma. Mother had breast lymphoma. Brother had heart disorder. SOCIAL HISTORY: , lives with his . Currently smokes 1 pack a day for last 50 years. No alcohol use, no drug use. REVIEW OF SYMPTOMS: As per HPI. Rest of review of systems negative. Physical Exam (per Admitting): GENERAL: The patient is of moderate build, not in distress. VITAL SIGNS: Temperature 36.7, pulse 71, respiratory rate 18, blood pressure 117/59 and oxygen 98% room air. HEENT: No pallor, no icterus. Right eyelid is somewhat erythematous. No significant facial droop seen. NECK: No neck masses, no carotid bruits. CARDIOVASCULAR: S1, S2 heard, regular rate and rhythm, no murmur, no gallop. RESPIRATORY: Normal AP diameter. No accessory muscle use. No wheezing, no crackles. ABDOMEN: Soft, bowel sounds present. Nontender. No distention. CENTRAL NERVOUS SYSTEM: Cranial nerves II-XII grossly nonfocal. EXTREMITIES: No edema, no erythema. Hospital Course This is a 77-year-old male who presents with syncope. 1. Syncope Secondary to Orthostasis - passed out 3-4 times prior to admission mostly orthostatic hypotension from dehydration, Flomax, Lisinopril - echo small LV camber and moderate LVH otherwise unremarkable carotid Doppler negative ct head negative recent MRI negative eeg normal -- Neuro consulted Dr. Brandon no further work up at this time -- management of Orthostasis as noted below 2. Orthostatic hypotension secondary to Flomax, Lisinopril -- received IV NSS but still orthostatic stopped Flomax and placed stockings -- still has orthostasis Alfuzosin tried, still has orthostasis --Lisinopril decreased to 10 mg Discontinued tamsulosin and Alfuzosin given additional IV fluids, Compression stockings -- still has orthostasis, symptomatic Lisinopril discontinued Orthostatic vital signs improved Lowest blood pressure systolic 99 from 130 Dizziness has resolved Ambulating with no symptoms Continue to monitor blood pressure while off lisinopril If antihypertensive is to be started, will need to start with a low dose and monitor for orthostasis closely monitor BP daily at [facility] 3. Acute renal failure on chronic kidney disease, stage II to III, - baseline creatinine between 1 to 1.2, presents with creatinine of 1.8. -- given IV fluids -- resolved . 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 He finished the course of prednisone and symptoms improved. -- Neurology consulted- Dr. Brandon symptoms resolved 5. Benign prostatic hyperplasia -- was on Proscar and Flomax. Stopped flomax for orthostatic hypotension -- still has orthostasis Alfuzosin tried, still has orthostasis -- (+) urinary retention -- discussed with Dr. Anguiano- Urology d/c Flomax and Alfuzosin place Kiser catheter --Positive hematuria Dr. Anguiano consulted Hematuria resolved likely from insertion of Kiser catheter Continue Kiser catheter at this time May need TURP Follow-up with urologist Dr. Dakota Anguiano on Saturday, January 20, 2018 Tel. no. 6. Hyperlipidemia, not on medication. :LDL 53. HDL 28 7. Tobacco disorder. Smoking cessation counseling Disposition: Transition to [facility] Follow-up with urologist in [facility] Dr. Dakota Anguiano on Saturday, January 20, 2018 Follow-up with primary care physician in 1 week upon discharge from [facility] Total time spent on discharge = 40 minutes This includes examination of the patient, discharge planning, medication reconciliation, and communication with other providers. Discharge Instructions Discharge Instructions Date of Service Jan 18, 2018. Admission Reason for Admission: Renal Failure, Syncope Discharge Discharge Diagnosis / Problem: SYNCOPE SECONDARY TO ORTHOSTATIC HYPOTENSION Discharge Goals Goal(s): Diagnostic testing, Therapeutic intervention Activity Recommendations Activity Level: Assistance Required Therapies: Physical Therapy, Occupational Therapy . Additional Information Patient informed of condition: Yes Advance Directives: No (UNKNOWN) DNR: No (PATIENT IS A FULL CODE) Level of Care: Acute Rehab Communicable Disease: No Prognosis: Improving Kiser Catheter: Yes Instructions / Follow-Up Instructions / Follow-Up PLEASE MONITOR ORTHOSTATIC BLOOD PRESSURE. FALL PRECAUTIONS PLEASE. MAINTAIN KISER CATHETER AND FOLLOW UP WITH UROLOGIST DR. DAKOTA ANGUIANO ON Saturday01/20/18. PLEASE REFER TO HOSPITAL COURSE BELOW FOR FURTHER DETAILS. Current Hospital Diet Patient's current hospital diet: AHA Diet (Heart Healthy) Discharge Diet Recommended Diet: AHA Diet (Heart Healthy) Procedures Procedures Performed: CT HEAD, CHEST XRAY, CAROTID US Pending Studies Studies pending at discharge: no Physician Orders On Transfer Special Precautions: PLEASE MONITOR ORTHOSTATIC BLOOD PRESSURE. FALL PRECAUTIONS PLEASE. MAINTAIN KISER CATHETER AND FOLLOW UP WITH UROLOGIST DR. DAKOTA ANGUIANO ON Saturday01/20/18. PLEASE REFER TO HOSPITAL COURSE BELOW FOR FURTHER DETAILS. Laboratory Results Lipid Panel Test 01/12/18 07:01 Range/Units Triglycerides Level 132 0-150 mg/dl Cholesterol Level 107 0-200 mg/dl HDL Cholesterol 28 mg/dl Cholesterol/HDL Ratio 3.8 LDL Cholesterol, Calculated 53 mg/dl Medical Emergencies . Who to Call and When: Medical Emergencies: If at any time you feel your situation is an emergency, please call 911 immediately. . Non-Emergent Contact Non-Emergency issues call your: Primary Care Provider, Urologist Call Non-Emergent contact if: you have a fever, your pain is not controlled, your pain is worsening, you have any medication questions . 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 "Provider Documentation" section prepared by Poncho Chaidez. . Core Measure Problem Core Measures: None
[2018-01-18] MEDS: BuPROPion SR 150 MG TABCR PO SCH (20:43)
[2018-01-18] MEDS: FINASTERIDE 5 MG TAB PO SCH (20:43)
[2018-01-19 00:15] VITALS: BP 134/70; PULSE 63; TEMP 36.7; O2SAT 98
[2018-01-19 04:21] VITALS: BP 125/73; PULSE 65; TEMP 36.7; O2SAT 94
[2018-01-19 07:11] VITALS: BP 132/75; PULSE 66; TEMP 36.9; O2SAT 94
--- NOTE | 2018-01-19 10:35 | Progress Note ---
Medicine Progress Note Date & Time of Visit: Jan 19, 2018 at 10:32. Subjective Seen resting in bed, comfortable States he feels fine overall Standing up ambulating with no dizziness or any symptoms No abdominal pain Eager for discharge today Objective Last 8 Hrs Date Time Temp Pulse Resp B/P (MAP) Pulse Ox O2 Delivery O2 Flow Rate FiO2 01/19/18 08:00 Room Air 01/19/18 07:11 36.9 66 16 132/75 (94) 94 01/19/18 04:21 36.7 65 18 125/73 (90) 94 Room Air 01/19/18 04:05 Room Air Physical Exam: General- oriented x 3, not in distress, speaks in sentences with no effort Eyes- anicteric Lungs- clear BS bilaterally no rales or wheezes Heart- regular rhythm; no murmur, normal rate Abdomen- normal bowel sounds, soft, nontender Chan catheter in place, no hematuria Extremities- no pretibial edema, no calf tenderness Neuro- alert, oriented x 3; no gross focal deficits Skin- warm & dry Assessment & Plan This is a 77-year-old male who presents with syncope. 1. Syncope Secondary to Orthostasis - passed out 3-4 times prior to admission mostly orthostatic hypotension from dehydration, Flomax, Lisinopril - echo small LV camber and moderate LVH otherwise unremarkable carotid Doppler negative ct head negative recent MRI negative eeg normal -- Neuro consulted Dr. Brandon no further work up at this time -- management of Orthostasis as noted below 2. Orthostatic hypotension secondary to Flomax, Lisinopril -- received IV NSS but still orthostatic stopped Flomax and placed stockings -- still has orthostasis Alfuzosin tried, still has orthostasis --Lisinopril decreased to 10 mg Discontinued tamsulosin and Alfuzosin given additional IV fluids, Compression stockings -- still has orthostasis, symptomatic Lisinopril discontinued Orthostatic vital signs improved Lowest blood pressure systolic 99 from 130 Dizziness has resolved Ambulating with no symptoms Continue to monitor blood pressure while off lisinopril If antihypertensive is to be started, will need to start with a low dose and monitor for orthostasis closely monitor BP daily at [facility] --Transition to [facility] when bed available 3. Acute renal failure on chronic kidney disease, stage II to III, - baseline creatinine between 1 to 1.2, presents with creatinine of 1.8. -- given IV fluids -- resolved . 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 He finished the course of prednisone and symptoms improved. -- Neurology consulted- Dr. Brandon symptoms resolved 5. Benign prostatic hyperplasia -- was on Proscar and Flomax. Stopped flomax for orthostatic hypotension -- still has orthostasis Alfuzosin tried, still has orthostasis -- (+) urinary retention -- discussed with Dr. Anguiano- Urology d/c Flomax and Alfuzosin place Chan catheter --Positive hematuria Dr. Anguiano consulted Hematuria resolved likely from insertion of Chan catheter Continue Chan catheter at this time May need TURP Follow-up with urologist Dr. Brenda Anguiano on Saturday, January 20, 2018 Tel. no. 6. Hyperlipidemia, not on medication. :LDL 53. HDL 28 7. Tobacco disorder. Smoking cessation counseling Disposition: Transition to [facility] Follow-up with urologist in [facility] Dr. Brenda Anguiano on Saturday, January 20, 2018 Follow-up with primary care physician in 1 week upon discharge from [facility] Consultants: UROLOGIST DR. BRENDA ANGUIANO Procedures: ECHO: Small, underfilled LV chamber with moderate concentric LVH. Normal LV systolic function, EF 55-60%. No segmental left ventricular wall motion abnormalities are noted. Grade I diastolic dysfunction. Aortic valve sclerosis mild, without significant aortic valvular stenosis. Small, loculated anterior pericardial effusion with stranding to suggest chronicity. * The interatrial septum is intact with no evidence for an atrial septal defect. * Injection of contrast documented no interatrial shunt. CT SCAN OF THE BRAIN WITHOUT IV CONTRAST CLINICAL HISTORY: Trauma. Fall. Syncope. COMPARISON STUDY: MRI of the brain dated 01/02/2018. TECHNIQUE: Unenhanced axial CT scan of the brain is performed from the vertex to the skull base. A dose lowering technique was utilized adhering to the principles of ALARA. CT DOSE: 614.27 mGy.cm FINDINGS: Brain parenchyma: There are age-related involutional changes noting moderate confluent subcortical and periventricular microangiopathic change. There is no hemorrhage, mass effect, or evidence of acute territorial ischemia by CT criteria. Mooney-white matter is preserved. No extra-axial fluid collection is seen. Ventricles, sulci, cisterns: Prominent secondary to involutional change. Intracranial vasculature: There is atherosclerotic calcification of the cavernous carotid and vertebral arteries. Calvarium: The skeletal structures are osteopenic. No depressed calvarial fracture is seen. Sinuses and mastoids: The visualized paranasal sinuses are clear. The mastoid air cells are well pneumatized. Orbits: The bony orbits are grossly intact. There is evidence of bilateral ocular lens surgery. IMPRESSION: There is no hemorrhage, mass effect, or evidence of acute territorial ischemia by CT criteria. SINGLE VIEW CHEST CLINICAL HISTORY: Atypical chest pain. FINDINGS: An AP, portable, upright chest radiograph is compared to study dated 01/02/2018. The examination is degraded by portable technique and patient rotation. The heart is mildly enlarged and there is atherosclerotic calcification of the thoracic aorta. The pulmonary vasculature is noncongested. There is left basilar atelectasis. The lungs and pleural spaces are otherwise clear. No pneumothorax is seen. The skeletal structures appear osteopenic. A right shoulder arthroplasty is in place. Degenerative change is noted throughout the thoracic spine. IMPRESSION: Mild cardiomegaly with no acute cardiopulmonary abnormality. ULTRASOUND OF THE CAROTID ARTERIES CLINICAL HISTORY: Syncope. COMPARISON STUDY: No priors. TECHNIQUE: Real-time, grayscale, and color Doppler sonography of the carotid arteries is performed. Images are reviewed in the transverse and longitudinal planes. FINDINGS: Blood pressure in the right arm measures 112/71 and blood pressure in the left arm measures 104/64. The carotid arteries are patent bilaterally and demonstrate antegrade flow. There is mild atherosclerotic plaque seen bilateral. Normal doppler arterial waveforms are seen throughout. Velocity measurements are listed below. Common carotid peak systolic velocity (cm/sec): RIGHT: 65 LEFT: 71 ICA proximal peak systolic velocity (cm/sec): RIGHT: 49 LEFT: 40 ICA mid peak systolic velocity (cm/sec): RIGHT: 63 LEFT: 48 ICA distal peak systolic velocity (cm/sec): RIGHT: 55 LEFT: 104 ICA/CC peak systolic ratio: RIGHT: 1.0 LEFT: 1.5 Antegrade flow was shown in the vertebral arteries. The external carotid arteries are patent. IMPRESSION: 1. There is no sonographic evidence of hemodynamically significant stenosis in the right or left carotid arterial system. 2. Antegrade flow is shown in the vertebral arteries. Electronically signed by: Ramiro Holland M.D. 01/11/2018 1:02 PM Current Inpatient Medications: Current Inpatient Medications Medications (Trade) Dose Ordered Sig/Héctor Route Start Time Stop Time Status Last Admin Dose Admin Acetaminophen (Tylenol Tab) 650 mg Q4H PRN PO 01/11/18 09:45 02/10/18 09:44 Ondansetron HCl (Zofran Inj) 4 mg Q6H PRN IV 01/11/18 09:45 02/10/18 09:44 Nitroglycerin (Nitrostat Tab) 0.4 mg UD PRN SL 01/11/18 09:45 02/10/18 09:44 Polyethylene (Miralax Powder Packet) 17 gm DAILY PRN PO 01/11/18 09:45 02/10/18 09:44 01/19/18 08:03 17 GM Finasteride (Proscar Tab) 5 mg HS PO 01/11/18 21:00 02/10/18 20:59 01/18/18 20:43 5 MG Hydralazine HCl (HydrALAZINE INJ) 5 mg Q6 PRN IV. 01/11/18 09:45 02/10/18 09:44 Calcium Carbonate (Tums Chew Tab) 500 mg TID PRN PO 01/12/18 07:30 02/11/18 07:29 Bupropion HCl (Wellbutrin-Sr Tab) 150 mg HS PO 01/14/18 21:00 02/10/18 20:59 Artificial Tears (Lacri-Lube Oph Oint) 1 appln QID PRN OP 01/17/18 09:45 02/16/18 09:44 Artificial Tears (Artificial Tears) 1 drops QID PRN OP 01/17/18 09:45 02/16/18 09:44
[2018-01-19 11:25] VITALS: BP 138/78; PULSE 64; TEMP 36.5; O2SAT 96
[2018-01-19 16:01] VITALS: BP 120/69; PULSE 66; TEMP 36.3; O2SAT 93
[2018-01-19 16:02] VITALS: BP_SYST 100; BP_SYST 120; BP_SYST 99; BP_DIAS 65; BP_DIAS 66; BP_DIAS 69; PULSE 66; TEMP 36.3; O2SAT 93
== END 2018-01-19 18:00 | DRG 312 ==
LOC: EDBD 06:38 → C.EDB 06:39 → C.MED 09:37 → ENRESERV 10:01
PROVIDERS: ADMIT Internal Medicine; ATTEND Internal Medicine
DX: I95.2 Hypotension due to drugs (principal); N17.9 Acute kidney failure, unspecified; S37.30XA Unspecified injury of urethra, initial encounter; E86.0 Dehydration; T44.6X5A Adverse effect of alpha-adrenoreceptor antagonists, initial encounter; T46.4X5A Adverse effect of angiotensin-converting-enzyme inhibitors, initial encounter; R31.0 Gross hematuria; N99.89 Other postprocedural complications and disorders of genitourinary system; R33.8 Other retention of urine; R51 Headache; G51.0 Bell's palsy; R13.10 Dysphagia, unspecified; N18.3 Chronic kidney disease, stage 3 (moderate); N40.1 Benign prostatic hyperplasia with lower urinary tract symptoms; E78.5 Hyperlipidemia, unspecified; I10 Essential (primary) hypertension; F17.200 Nicotine dependence, unspecified, uncomplicated; Z79.899 Other long term (current) drug therapy; Z96.1 Presence of intraocular lens; Z83.3 Family history of diabetes mellitus; Z82.49 Family history of ischemic heart disease and other diseases of the circulatory system; Z80.0 Family history of malignant neoplasm of digestive organs; Z80.7 Family history of other malignant neoplasms of lymphoid, hematopoietic and related tissues; Z80.3 Family history of malignant neoplasm of breast; W19.XXXA Unspecified fall, initial encounter; Y99.8 Other external cause status; Y84.6 Urinary catheterization as the cause of abnormal reaction of the patient, or of later complication, without mention of misadventure at the time of the procedure

== ENCOUNTER 2025-10-08 20:48 | Inpatient (IN) ==
--- NOTE | 2025-10-08 21:05 | Emergency Department Note ---
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 Patient reports feeling very weak for the last 2 days. He reports shortness of breath. He reports diarrhea. Hematochezia. No fever. He reports lower abdominal pain. No chest pain. Home Medications Medication Instructions Recorded Confirmed Type atorvastatin 40 mg tablet 40 mg PO PM 06/07/22 03/20/25 History Stool Softener 1 cap PO UD PRN Constipation 03/20/25 03/20/25 History finasteride 5 mg tablet 5 mg PO QAM 03/20/25 03/20/25 History Allergies Allergy/AdvReac Type Severity Reaction Status Date / Time alfuzosin AdvReac Intermediate OTHER Verified 10/08/25 23:05 tamsulosin AdvReac Intermediate OTHER Verified 10/08/25 23:05 Past Med/Surg History Problem List (Updated 10/08/25 @ 23:06 by Jose Carlos Byrnes MD) Sepsis (Acute) CAYETANO inhibitor intolerance Elevated prostate specific antigen [PSA] Dyslipidemia, goal LDL below 100 Tobacco use disorder Bilateral inguinal hernia, without obstruction or gangrene, not specified as recurrent 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 Family History Mother Breast cancer Father Cancer colon Social History Smoking Status: Current every day smoker Tobacco Type: Cigarettes Preferred Language: Nepalese marital status: current occupational status: retired Feels Safe at Home: Yes Physical Exam Vital Signs Vital Signs - 24 hr 10/08/25 21:09 10/08/25 21:15 10/08/25 21:27 Temperature 36.4 C Temperature Source Oral Pulse Rate 105 H 102 H 102 H Pulse Rate [Apical] Pulse Rate from SpO2 Sensor 104 H 102 H Respiratory Rate 22 23 16 Respiratory Effort / Characteristics Blood Pressure 126/63 Blood Pressure [Right Arm] Blood Pressure Mean 84 Blood Pressure Mean [Right Arm] Pulse Oximetry 95 95 94 Oxygen Delivery Method Room Air Sepsis Recent Fever Within 48 Hours No Sepsis New/Unexplained Change in Mental Status No Sepsis Action Taken by Nursing No Action Required 10/08/25 21:27 10/08/25 21:27 10/08/25 21:27 Temperature Temperature Source Pulse Rate 102 H Pulse Rate [Apical] 102 H Pulse Rate from SpO2 Sensor Respiratory Rate 16 16 Respiratory Effort / Characteristics Non-Labored Spontaneous Blood Pressure Blood Pressure [Right Arm] 126/63 Blood Pressure Mean Blood Pressure Mean [Right Arm] 84 Pulse Oximetry 94 94 94 Oxygen Delivery Method Room Air Room Air Room Air Sepsis Recent Fever Within 48 Hours Sepsis New/Unexplained Change in Mental Status Sepsis Action Taken by Nursing 10/08/25 21:30 10/08/25 21:36 10/08/25 21:37 Temperature Temperature Source Pulse Rate 97 H 104 H Pulse Rate [Apical] Pulse Rate from SpO2 Sensor 99 H 104 H Respiratory Rate 22 22 Respiratory Effort / Characteristics Blood Pressure 117/68 Blood Pressure [Right Arm] Blood Pressure Mean 74 Blood Pressure Mean [Right Arm] Pulse Oximetry 95 94 Oxygen Delivery Method Sepsis Recent Fever Within 48 Hours Sepsis New/Unexplained Change in Mental Status Sepsis Action Taken by Nursing 10/08/25 21:37 10/08/25 21:37 10/08/25 21:37 Temperature Temperature Source Pulse Rate Pulse Rate [Apical] Pulse Rate from SpO2 Sensor Respiratory Rate Respiratory Effort / Characteristics Blood Pressure 117/68 117/68 117/68 Blood Pressure [Right Arm] Blood Pressure Mean 74 74 74 Blood Pressure Mean [Right Arm] Pulse Oximetry Oxygen Delivery Method Sepsis Recent Fever Within 48 Hours Sepsis New/Unexplained Change in Mental Status Sepsis Action Taken by Nursing 10/08/25 21:37 10/08/25 21:54 10/08/25 21:54 Temperature Temperature Source Pulse Rate 103 H 104 H Pulse Rate [Apical] Pulse Rate from SpO2 Sensor 104 H Respiratory Rate 22 Respiratory Effort / Characteristics Blood Pressure 117/68 Blood Pressure [Right Arm] Blood Pressure Mean 74 Blood Pressure Mean [Right Arm] Pulse Oximetry 97 Oxygen Delivery Method Sepsis Recent Fever Within 48 Hours Sepsis New/Unexplained Change in Mental Status Sepsis Action Taken by Nursing 10/08/25 22:00 10/08/25 22:00 10/08/25 22:00 Temperature Temperature Source Pulse Rate Pulse Rate [Apical] Pulse Rate from SpO2 Sensor Respiratory Rate Respiratory Effort / Characteristics Blood Pressure 124/91 124/91 124/91 Blood Pressure [Right Arm] Blood Pressure Mean 101 101 101 Blood Pressure Mean [Right Arm] Pulse Oximetry Oxygen Delivery Method Sepsis Recent Fever Within 48 Hours Sepsis New/Unexplained Change in Mental Status Sepsis Action Taken by Nursing 10/08/25 22:00 10/08/25 22:00 10/08/25 22:00 Temperature Temperature Source Pulse Rate 93 H Pulse Rate [Apical] Pulse Rate from SpO2 Sensor 92 H Respiratory Rate 20 Respiratory Effort / Characteristics Blood Pressure 124/91 124/91 Blood Pressure [Right Arm] Blood Pressure Mean 101 101 Blood Pressure Mean [Right Arm] Pulse Oximetry 97 Oxygen Delivery Method Sepsis Recent Fever Within 48 Hours Sepsis New/Unexplained Change in Mental Status Sepsis Action Taken by Nursing 10/08/25 22:15 10/08/25 22:15 10/08/25 22:15 Temperature Temperature Source Pulse Rate Pulse Rate [Apical] Pulse Rate from SpO2 Sensor Respiratory Rate Respiratory Effort / Characteristics Blood Pressure 128/77 128/77 128/77 Blood Pressure [Right Arm] Blood Pressure Mean 89 89 89 Blood Pressure Mean [Right Arm] Pulse Oximetry Oxygen Delivery Method Sepsis Recent Fever Within 48 Hours Sepsis New/Unexplained Change in Mental Status Sepsis Action Taken by Nursing 10/08/25 22:15 10/08/25 22:15 10/08/25 22:15 Temperature Temperature Source Pulse Rate 101 H Pulse Rate [Apical] Pulse Rate from SpO2 Sensor Respiratory Rate 22 Respiratory Effort / Characteristics Blood Pressure 128/77 128/77 Blood Pressure [Right Arm] Blood Pressure Mean 89 89 Blood Pressure Mean [Right Arm] Pulse Oximetry Oxygen Delivery Method Sepsis Recent Fever Within 48 Hours Sepsis New/Unexplained Change in Mental Status Sepsis Action Taken by Nursing 10/08/25 22:27 10/08/25 22:30 10/08/25 22:30 Temperature Temperature Source Pulse Rate 101 H Pulse Rate [Apical] Pulse Rate from SpO2 Sensor Respiratory Rate 22 Respiratory Effort / Characteristics Blood Pressure 152/64 H 152/64 H Blood Pressure [Right Arm] Blood Pressure Mean 83 83 Blood Pressure Mean [Right Arm] Pulse Oximetry Oxygen Delivery Method Sepsis Recent Fever Within 48 Hours Sepsis New/Unexplained Change in Mental Status Sepsis Action Taken by Nursing 10/08/25 22:30 10/08/25 22:30 10/08/25 22:30 Temperature Temperature Source Pulse Rate Pulse Rate [Apical] Pulse Rate from SpO2 Sensor Respiratory Rate Respiratory Effort / Characteristics Blood Pressure 152/64 H 152/64 H 152/64 H Blood Pressure [Right Arm] Blood Pressure Mean 83 83 83 Blood Pressure Mean [Right Arm] Pulse Oximetry Oxygen Delivery Method Sepsis Recent Fever Within 48 Hours Sepsis New/Unexplained Change in Mental Status Sepsis Action Taken by Nursing 10/08/25 22:33 10/08/25 22:45 10/08/25 22:45 Temperature Temperature Source Pulse Rate 87 Pulse Rate [Apical] Pulse Rate from SpO2 Sensor Respiratory Rate 20 Respiratory Effort / Characteristics Blood Pressure 121/59 L 121/59 L Blood Pressure [Right Arm] Blood Pressure Mean 93 93 Blood Pressure Mean [Right Arm] Pulse Oximetry Oxygen Delivery Method Sepsis Recent Fever Within 48 Hours Sepsis New/Unexplained Change in Mental Status Sepsis Action Taken by Nursing 10/08/25 22:45 10/08/25 22:45 10/08/25 22:45 Temperature Temperature Source Pulse Rate Pulse Rate [Apical] Pulse Rate from SpO2 Sensor Respiratory Rate Respiratory Effort / Characteristics Blood Pressure 121/59 L 121/59 L 121/59 L Blood Pressure [Right Arm] Blood Pressure Mean 93 93 93 Blood Pressure Mean [Right Arm] Pulse Oximetry Oxygen Delivery Method Sepsis Recent Fever Within 48 Hours Sepsis New/Unexplained Change in Mental Status Sepsis Action Taken by Nursing 10/08/25 22:45 Temperature Temperature Source Pulse Rate 99 H Pulse Rate [Apical] Pulse Rate from SpO2 Sensor Respiratory Rate 22 Respiratory Effort / Characteristics Blood Pressure Blood Pressure [Right Arm] Blood Pressure Mean Blood Pressure Mean [Right Arm] Pulse Oximetry Oxygen Delivery Method Sepsis Recent Fever Within 48 Hours Sepsis New/Unexplained Change in Mental Status Sepsis Action Taken by Nursing Physical Exam GENERAL: Ill-appearing. HENT: Exam performed. - Head: Normocephalic and atraumatic. EYES: Conjunctivae and EOM are normal. Right eye exhibits no discharge. Left eye exhibits no discharge. No scleral icterus. NECK: Normal range of motion. Neck supple. No JVD present. CV: Normal rate, regular rhythm, normal heart sounds and intact distal pulses. There is no peripheral edema. Palpable radial pulses bue. PULM/CHEST: Rales bilaterally ABD: The abdomen is soft. There is tenderness to the left lower quadrant. : Nephrostomy tube in place. Draining urine. Chan catheter is in place and appears very dirty. NEURO: Motor and sensation grossly intact. Course Course 2052: The patient was evaluated in room B5. A complete history and physical exam was performed Cardiac monitoring: An order was placed for continuous cardiac monitoring. The monitor shows a rate of 100 with sinus rhythm interpreted by me 2225: Vital signs stable. Lactic acid is elevated. White blood cell count 15. Patient's creatinine is elevated from baseline. Patient be treated with 30 cc/kg normal saline bolus. Empiric Zosyn ordered for the patient. 2240: Received call from radiology that the patient's Chan catheter is actually in his penile urethra and not in his bladder. Chan catheter will be removed and replaced. 2303: Vital signs stable. Nursing staff was able to remove the patient's Chan catheter and placed a new one. [facility] Administered Medications Sodium Chloride (Nss) 1,000 mls @ 999 mls/hr IV .Q1H1M ONE Stop: 10/08/25 23:23 Last Admin: 10/08/25 22:26 Dose: 999 mls/hr Documented By: TEMO Discontinued Medications Sodium Chloride (Nss) 1,000 mls @ 999 mls/hr IV .Q1H1M ONE Stop: 10/08/25 22:36 Last Admin: 10/08/25 22:26 Dose: 999 mls/hr Documented By: TEMO Piperacillin Sod/Tazobactam Sod (Zosyn) 4.5 gm in 120 mls @ 240 mls/hr IV NOW ONE Stop: 10/08/25 22:18 Last Infusion: 10/08/25 22:58 Dose: Infused Documented By: Admin: 10/08/25 22:25 Dose: 240 mls/hr Documented By: TEMO Sodium Chloride (Nss) 500 mls @ 999 mls/hr IV .Q31M ONE Stop: 10/08/25 22:53 Last Admin: 10/08/25 22:26 Dose: 999 mls/hr Documented By: TEMO Medical Decision Making Laboratory Data Attestation: I reviewed the patient's lab results. 10/08/25 21:07 10/08/25 21:07 Lab Results 10/08/25 10/08/25 10/08/25 Range/Units 21:05 21:07 21:15 WBC 15.31 H (4.8-10.8) K/ul RBC 4.64 L (4.70-6.10) M/uL Hgb 13.5 L (14.0-18.0) g/dL POC Hgb 13.9 L (14.0-18.0) g/dl Hct 40.0 L (42.0-52.0) % POC Hct 41 L (42-52) % MCV 86.2 (80.0-100.0) fL MCH 29.1 (25.0-34.0) pg MCHC 33.8 (32.0-36.0) g/dL RDW Std Deviation 52.2 H (36.4-46.3) fL RDW Coeff of Talib 17.1 H (11.5-14.5) % Plt Count 216 (130-400) K/uL MPV 10.9 (9.4-12.4) fL Immature Gran % (Auto) 0.7 % Neut % (Auto) 84.9 % Lymph % (Auto) 5.5 % Dauphin % (Auto) 7.5 % Eos % (Auto) 0.4 % Baso % (Auto) 1.0 % Neut # (Auto) 13.01 H (1.40-6.50) K/uL Lymph # (Auto) 0.84 L (1.20-3.40) K/uL Dauphin # (Auto) 1.15 H (0.11-0.59) K/uL Eos # (Auto) 0.06 (0.00-0.50) K/uL Baso # (Auto) 0.15 (0.00-0.20) K/uL Immature Gran # (Auto) 0.10 (0.01-0.20) K/uL PT 11.0 (9.0-12.0) Seconds INR 1.0 (0.9-1.1) APTT 30 (21-31) Seconds PTT Ratio 1.1 VBG pH 7.35 L (7.36-7.41) VBG pCO2 35 L (38-50) mmHg VBG pO2 35 mmHg VBG HCO3 19 mmol/L VBG O2 Saturation < 60.0 % VBG Base Excess -5.6 mEq/L POC Sodium 141 (135-144) mmol/L Sodium 139 (136-145) mmol/L POC Potassium 3.9 (3.3-5.0) mmol/L Potassium 3.8 (3.5-5.1) mmol/L POC Chloride 107 (101-112) mmol/L Chloride 108 H (98-107) mmol/L Carbon Dioxide 19 L (21-32) mmol/L POC Total CO2 19 L (24-31) mmol/L Anion Gap 12 H (3-11) POC Anion Gap 20.0 (16-25) mmol/L POC BUN 23 H (7-18) mg/dl BUN 23 (6-23) mg/dl Creatinine 2.64 H (0.6-1.4) mg/dl POC Creatinine 2.6 H (0.6-1.3) mg/dl Est Cr Clr Drug Dosing 24.6 ml/min eGFR 23.29 BUN/Creatinine Ratio 8.7 L (10-20) Glucose 147 H (70-99(Fasting)) mg/dl POC Glucose (other) 138 H (70-99) mg/dl Lactate 2.6 H* (0.4-2.0) mmol/L Calcium 9.1 (8.6-10.3) mg/dl POC Ioniz Calcium Zaira 1.13 (1.12-1.32) mmol/l Magnesium 1.8 (1.7-2.4) mg/dl Total Bilirubin 0.8 (0.2-1.0) mg/dl Direct Bilirubin 0.2 (0-0.2) mg/dl AST 20 (13-39) U/L ALT 16 (7-52) U/L Alkaline Phosphatase 122 H (34-104) U/L Troponin I High Sens 14.2 (0-20) pg/ml B-Natriuretic Peptide 48 (0-100) pg/ml Total Protein 7.3 (6.0-8.3) gm/dl Albumin 3.7 (3.4-5.0) gm/dl Procalcitonin 0.23 (0-0.5) ng/ml SARS-CoV-2 (PCR) NEGATIVE (Negative) Influenza Type A (PCR) Negative (Neg) Influenza Type B (PCR) Negative (Neg) RSV (RT-PCR) Negative (Neg) Imaging Data Attestation: I personally reviewed and interpreted this imaging study as follows: My Impression: Chest x-ray negative. Airway clear. No pneumothorax. No consolidation. No cardiomegaly or cephalization.. No free air under the diaphragm. No fractures of the skeletal structures. Radiologist's Impression: Chest X-Ray 10/08/25 20:52 Exam(s): XR CXR 1 VIEW EXAM: XR Chest, 1 View CLINICAL HISTORY: Reason for exam: Sepsis. TECHNIQUE: Frontal view of the chest. COMPARISON: 01/11/2018 FINDINGS: Lungs: The lungs are well inflated and clear. No acute infiltrate or consolidation is seen. Pleural space: Unremarkable. No pneumothorax. Heart: Unremarkable. No cardiomegaly. Mediastinum: Unremarkable. Normal mediastinal contour. Bones/joints: Previous right shoulder arthroplasty. Mild osteophytosis in the lower thoracic spine. No acute fracture. Vasculature: The aortic arch is mildly calcified but nondilated. Tubes, lines and devices: There is a Port-A-Cath on the right with the catheter tip in the superior vena cava, just above the right atrium. Upper abdomen: Unremarkable as visualized. No pneumoperitoneum under the diaphragm. IMPRESSION: 1. There is a Port-A-Cath on the right with the catheter tip in the superior vena cava, just above the right atrium. 2. The lungs are well inflated and clear. No acute infiltrate or consolidation is seen. Electronically signed by: Familia Acevedo MD 10/08/25 22:[address] 10/08/25 20:52 Exam(s): CT HEAD Without Contrast EXAM: CT Head Without Intravenous Contrast CLINICAL HISTORY: Reason for exam: weakness. TECHNIQUE: Axial computed tomography images of the head/brain without intravenous contrast. CTDI is 27.84 mGy and DLP is 1622.97 mGy-cm. Automated exposure control was utilized for the study. A dose lowering technique was utilized adhering to the principles of ALARA. COMPARISON: 01/11/2018 FINDINGS: Brain: Moderate atrophy and periventricular white matter low density consistent with chronic small vessel disease and/or senescent changes, similar to previous. No acute large vessel infarct or intracranial hemorrhage is seen. Ventricles: Mildly dilated. No mass or hemorrhage. Bones/joints: Unremarkable. No acute fracture. Soft tissues: Unremarkable. Sinuses: Unremarkable as visualized. No acute sinusitis. Mastoid air cells: Unremarkable as visualized. No mastoid effusion. IMPRESSION: Moderate atrophy and periventricular white matter low density consistent with chronic small vessel disease and/or senescent changes, similar to previous. No acute large vessel infarct or intracranial hemorrhage is seen. Electronically signed by: Familia Acevedo MD 10/08/25 22:16 PM Abdomen/Pelvis CT 10/08/25 21:27 CR Exam(s): CT ABDOMEN + PELVIS Without Contrast EXAM: CT Abdomen and Pelvis Without Intravenous Contrast CLINICAL HISTORY: Reason for exam: Left lower quadrant abd pain. TECHNIQUE: Axial computed tomography images of the abdomen and pelvis without intravenous contrast. CTDI is 27.84 mGy and DLP is 1622.97 mGy-cm. Automated exposure control was utilized for the study. A dose lowering technique was utilized adhering to the principles of ALARA. COMPARISON: Ultrasound from 08/27/2025 FINDINGS: Lung bases: Unremarkable. No mass. No consolidation. ABDOMEN: Liver: Unremarkable. Gallbladder and bile ducts: There is a 9 mm layer of 2-3 mm calcified gallstones in the dependent portion of the nondilated gallbladder. No surrounding inflammation, biliary duct dilation, or choledocholithiasis. Pancreas: Unremarkable. No ductal dilation. Spleen: Unremarkable. No splenomegaly. Adrenals: Unremarkable. No mass. Kidneys and ureters: There is a percutaneous nephrostomy tube on the right. There is mild right hydronephrosis and hydroureter. No calculus is seen. 3.3 cm simple cyst extending off the upper pole of the right kidney. No follow-up is required. Stomach and bowel: There is diverticulosis of the sigmoid colon without evidence of acute diverticulitis. Bowel loops are nondilated. The appendix is normal. Scattered gas fluid levels in nondilated small bowel and colon suggests enteritis or ileus. PELVIS: Appendix: See above. Bladder: There is a Chan catheter in place with the balloon inflated in the posterior penile urethra. Slight inflammation surrounding the urinary bladder. The bladder is only partially distended but contains a small amount of gas and demonstrates a 3.3 cm diverticulum superiorly to the left. No stones. Reproductive: Unremarkable as visualized. ABDOMEN and PELVIS: Intraperitoneal space: Unremarkable. No free air. No significant fluid collection. Bones/joints: No acute fracture. No dislocation. Soft tissues: Unremarkable. Vasculature: Unremarkable. No abdominal aortic aneurysm. Lymph nodes: Unremarkable. No enlarged lymph nodes. IMPRESSION: 1. There is a Chan catheter in place with the balloon inflated in the posterior penile urethra. 2. Slight inflammation surrounding the urinary bladder. The bladder is only partially distended but contains a small amount of gas and demonstrates a 3.3 cm diverticulum superiorly to the left. Consider cystitis . 3. There is a percutaneous nephrostomy tube on the right. There is mild right hydronephrosis and hydroureter. No calculus is seen. 4. There is diverticulosis of the sigmoid colon without evidence of acute diverticulitis. Bowel loops are nondilated. The appendix is normal. Scattered gas fluid levels in nondilated small bowel and colon suggests enteritis or ileus. Communications: Call Doctor Above results Electronically signed by: Familia Acevedo MD 10/08/25 22:26 PM ECG Data Attestation: I personally reviewed and interpreted this ECG as follows: Additional Comments: Sinus tachycardia with a rate of 107. CA 218 QRS [address] elevation or ST depression. First-degree AV block present. [facility] Narrative 2051: The patient was evaluated in room B5. A complete history and physical exam was performed Cardiac monitoring: An order was placed for continuous cardiac monitoring. The monitor shows a rate of 100 with sinus rhythm interpreted by me 2225: Vital signs stable. Lactic acid is elevated. White blood cell count 15. Patient's creatinine is elevated from baseline. Patient be treated with 30 cc/kg normal saline bolus. Empiric Zosyn ordered for the patient. 2240: Received call from radiology that the patient's Chan catheter is actually in his penile urethra and not in his bladder. Chan catheter will be removed and replaced. 2303: Vital signs stable. Nursing staff was able to remove the patient's Chan catheter and placed a new one. Patient will be admitted to the [facility] team. Impression & Plan Sepsis Discharge Plan Visit Data Chief Complaint: Weakness Stated Complaint: Weakness ED Provider: Jose Carlos Byrnes Discharge Problem: Sepsis Patient Disposition: Admitted As Inpatient Condition: Fair Forms Stand Alone Forms: My Jir[employer] Prescriptions Prescriptions: No Action atorvastatin 40 mg tablet 40 mg PO PM finasteride 5 mg tablet 5 mg PO QAM Stool Softener 1 cap PO UD PRN (Reason: Constipation) Rx Instructions: otc unknown dose Referrals Referrals: Leon De Paz DO [Primary Care Provider] -
[2025-10-08 21:26] LABS: Base Excess VBG -5.6 mEq/L; HCO3 VBG 19 mmol/L; Oxygen Saturation VBG < 60.0 %; PCO2 VBG 35 mmHg (38-50); PO2 VBG 35 mmHg; pH VBG 7.35 (7.36-7.41)
[2025-10-08 21:45] LABS: Alanine Aminotransferase 16.0 U/L (7-52); Albumin Level 3.7 gm/dl (3.4-5.0); Alkaline Phosphatase 122.0 U/L (34-104); Anion Gap 12.0 (3-11); Bilirubin,Total 0.8 mg/dl (0.2-1.0); Blood Urea Nitrogen 23.0 mg/dl (6-23); Calcium 9.1 mg/dl (8.6-10.3); Carbon Dioxide 19.0 mmol/L (21-32); Chloride 108.0 mmol/L (98-107); Creatinine Clr Calc Pharmacy 24.6 ml/min; Glucose 147.0 mg/dl (70-99(Fasting)); Magnesium 1.8 mg/dl (1.7-2.4); Potassium 3.8 mmol/L (3.5-5.1); Sodium 139.0 mmol/L (136-145); Total Protein 7.3 gm/dl (6.0-8.3)
[2025-10-08 21:49] LABS: Hematocrit (blood only) 40.0 % (42.0-52.0); Hemoglobin 13.5 g/dL (14.0-18.0); Immature Granulocytes # (auto) 0.10 K/uL (0.01-0.20); Immature Granulocytes % (auto) 0.7 %; Mean Corpuscular Hemoglobin 29.1 pg (25.0-34.0); Mean Corpuscular Volume 86.2 fL (80.0-100.0); Platelet Count 216 K/uL (130-400); RDW Standard Deviation 52.2 fL (36.4-46.3); Red Blood Count 4.64 M/uL (4.70-6.10); White Blood Count 15.31 K/ul (4.8-10.8)
[2025-10-08 22:05] LABS: Influenza A virus by PCR Negative (Neg); Influenza B virus by PCR Negative (Neg); SARS CoV2 RNA(COVID-19) Ceph NEGATIVE (Negative)
[2025-10-08 22:11] LABS: INR 1.0 (0.9-1.1); Partial Thromboplastin Time 30 Seconds (21-31); Prothrombin Time 11.0 Seconds (9.0-12.0)
--- NOTE | 2025-10-08 22:13 | XRay Report ---
Exam(s): XR CXR 1 VIEW EXAM: XR Chest, 1 View CLINICAL HISTORY: Reason for exam: Sepsis. TECHNIQUE: Frontal view of the chest. COMPARISON: 01/11/2018 FINDINGS: Lungs: The lungs are well inflated and clear. No acute infiltrate or consolidation is seen. Pleural space: Unremarkable. No pneumothorax. Heart: Unremarkable. No cardiomegaly. Mediastinum: Unremarkable. Normal mediastinal contour. Bones/joints: Previous right shoulder arthroplasty. Mild osteophytosis in the lower thoracic spine. No acute fracture. Vasculature: The aortic arch is mildly calcified but nondilated. Tubes, lines and devices: There is a Port-A-Cath on the right with the catheter tip in the superior vena cava, just above the right atrium. Upper abdomen: Unremarkable as visualized. No pneumoperitoneum under the diaphragm. IMPRESSION: 1. There is a Port-A-Cath on the right with the catheter tip in the superior vena cava, just above the right atrium. 2. The lungs are well inflated and clear. No acute infiltrate or consolidation is seen. Electronically signed by: Familia Acevedo MD 10/08/25 22:12 PM
--- NOTE | 2025-10-08 22:17 | CT Scan Report ---
Exam(s): CT HEAD Without Contrast EXAM: CT Head Without Intravenous Contrast CLINICAL HISTORY: Reason for exam: weakness. TECHNIQUE: Axial computed tomography images of the head/brain without intravenous contrast. CTDI is 27.84 mGy and DLP is 1622.97 mGy-cm. Automated exposure control was utilized for the study. A dose lowering technique was utilized adhering to the principles of ALARA. COMPARISON: 01/11/2018 FINDINGS: Brain: Moderate atrophy and periventricular white matter low density consistent with chronic small vessel disease and/or senescent changes, similar to previous. No acute large vessel infarct or intracranial hemorrhage is seen. Ventricles: Mildly dilated. No mass or hemorrhage. Bones/joints: Unremarkable. No acute fracture. Soft tissues: Unremarkable. Sinuses: Unremarkable as visualized. No acute sinusitis. Mastoid air cells: Unremarkable as visualized. No mastoid effusion. IMPRESSION: Moderate atrophy and periventricular white matter low density consistent with chronic small vessel disease and/or senescent changes, similar to previous. No acute large vessel infarct or intracranial hemorrhage is seen. Electronically signed by: Familia Acevedo MD 10/08/25 22:16 PM
[2025-10-08] MEDS: PIPERACILLIN/TAZOBACTAM 4.5 GM/120 ML BAG IV ONE (22:25)
[2025-10-08] MEDS: SODIUM CHLORIDE 0.9% 1,000 ML IV ONE ×2 (22:26)
[2025-10-08] MEDS: SODIUM CHLORIDE 0.9% 500 ML IV ONE (22:26)
--- NOTE | 2025-10-08 22:26 | CT Scan Report ---
Exam(s): CT ABDOMEN + PELVIS Without Contrast EXAM: CT Abdomen and Pelvis Without Intravenous Contrast CLINICAL HISTORY: Reason for exam: Left lower quadrant abd pain. TECHNIQUE: Axial computed tomography images of the abdomen and pelvis without intravenous contrast. CTDI is 27.84 mGy and DLP is 1622.97 mGy-cm. Automated exposure control was utilized for the study. A dose lowering technique was utilized adhering to the principles of ALARA. COMPARISON: Ultrasound from 08/27/2025 FINDINGS: Lung bases: Unremarkable. No mass. No consolidation. ABDOMEN: Liver: Unremarkable. Gallbladder and bile ducts: There is a 9 mm layer of 2-3 mm calcified gallstones in the dependent portion of the nondilated gallbladder. No surrounding inflammation, biliary duct dilation, or choledocholithiasis. Pancreas: Unremarkable. No ductal dilation. Spleen: Unremarkable. No splenomegaly. Adrenals: Unremarkable. No mass. Kidneys and ureters: There is a percutaneous nephrostomy tube on the right. There is mild right hydronephrosis and hydroureter. No calculus is seen. 3.3 cm simple cyst extending off the upper pole of the right kidney. No follow-up is required. Stomach and bowel: There is diverticulosis of the sigmoid colon without evidence of acute diverticulitis. Bowel loops are nondilated. The appendix is normal. Scattered gas fluid levels in nondilated small bowel and colon suggests enteritis or ileus. PELVIS: Appendix: See above. Bladder: There is a Chan catheter in place with the balloon inflated in the posterior penile urethra. Slight inflammation surrounding the urinary bladder. The bladder is only partially distended but contains a small amount of gas and demonstrates a 3.3 cm diverticulum superiorly to the left. No stones. Reproductive: Unremarkable as visualized. ABDOMEN and PELVIS: Intraperitoneal space: Unremarkable. No free air. No significant fluid collection. Bones/joints: No acute fracture. No dislocation. Soft tissues: Unremarkable. Vasculature: Unremarkable. No abdominal aortic aneurysm. Lymph nodes: Unremarkable. No enlarged lymph nodes. IMPRESSION: 1. There is a Chan catheter in place with the balloon inflated in the posterior penile urethra. 2. Slight inflammation surrounding the urinary bladder. The bladder is only partially distended but contains a small amount of gas and demonstrates a 3.3 cm diverticulum superiorly to the left. Consider cystitis . 3. There is a percutaneous nephrostomy tube on the right. There is mild right hydronephrosis and hydroureter. No calculus is seen. 4. There is diverticulosis of the sigmoid colon without evidence of acute diverticulitis. Bowel loops are nondilated. The appendix is normal. Scattered gas fluid levels in nondilated small bowel and colon suggests enteritis or ileus. Communications: Call Doctor Above results Electronically signed by: Familia Acevedo MD 10/08/25 22:26 PM
[2025-10-08 23:53] LABS: Appearance Urine Turbid (Clear)
[2025-10-09] MEDS ORDERED: ACETAMINOPHEN 325 MG TAB PO PRN (01:32)
[2025-10-09] MEDS ORDERED: LIDOCAINE/PRILOCAINE 2.5% EA CRM EXT SCH (01:32)
[2025-10-09] MEDS ORDERED: SODIUM CHLORIDE 0.9% 10ML FLUSH IP SCH (01:32)
[2025-10-09] MEDS: SODIUM CHLORIDE 0.9% 1,000 ML IV SCH (02:46)
[2025-10-09] MEDS: PIPERACILLIN/TAZOBACTAM 4.5 GM/100 ML BAG IV SCH (05:30)
--- NOTE | 2025-10-09 07:50 | History & Physical Report ---
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 He is on fluconazole for thrush and says he has 4 more doses left. His last chemo was on 10/01/2025. Last few days feeling weak. Today was not able to ambulate because of weakness in the legs. Has some diarrhea. No blood in the stools. Appetite is down. Feeling somewhat short of breath. No headache. No cough. No runny nose or sore throat. No chest pain. No abdominal pain. Hemodynamics are okay. Patient lives with his son. Daughter is in the room.His Chan catheter was not in place so it was removed and replaced in the ER. Currently having hematuria. Daughter says he gets hematuria on and off. Sepsis Leukocytosis Initial lactic is 2.6 and repeat is 2 UA is positive Has chronic Chan Has right nephrostomy tubes History of UTI in the past ER gave Zosyn which will be continued IV fluids Hemodialysis okay currently Close monitor Will follow cultures Hematuria Hemoglobin okay 13.5 Will monitor Urology consulted History of high-grade urothelial carcinoma Involving right ureter with bladder involvement and retroperitoneal ly mphadenopathy Currently on Enfortumab and pembrolizumab every 21 days Last dose was on 10/01/2025 Has right nephrostomy tube placement History of hematuria requiring continuous bladder irrigation in past Follows with heme-onc BPH On Proscar ANDRE Baseline creatinine 1.7-2 Presented with creatinine of 2.6 Avoid nephrotoxic agents Will follow repeat labs Diarrhea Enteritis/ileus on CAT scan Stool studies ordered clears for now -Thrush On fluconazole Says 4 more days left Says he does not want to take it If refusing may place him on nystatin swish and swallow Dyslipidemia On statin Status post left orchiectomy in 2011 for hydrocele DVT prophylaxis SCDs for now Disposition Telemetry CODE STATUS full code if there is chance of recovery as per my discussion with the patient. 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 He is on fluconazole for thrush and says he has 4 more doses left. His last chemo was on 10/01/2025. Last few days feeling weak. Today was not able to ambulate because of weakness in the legs. Has some diarrhea. No blood in the stools. Appetite is down. Feeling somewhat short of breath. No headache. No cough. No runny nose or sore throat. No chest pain. No abdominal pain. Hemodynamics are okay. Patient lives with his son. Daughter is in the room.His Chan catheter was not in place so it was removed and replaced in the ER. Currently having hematuria. Daughter says he gets hematuria on and off. Past medical history. As mentioned above. Past surgical history. Colonoscopy with biopsy. Cystoscopy. Cystourethroscopy with fulguration for bladder tumor. Cystourethroscopy with biopsy. Dental surgery. Right nephrostomy tube placement. Radical left orchiectomy. Repair inguinal hernia. Umbilical hernia repair. Social history. . Lives with his son. Smoked 1 pack a day for 50 years. No alcohol use. No drug use. Family history. Father had colon cancer. Mother had breast/lymphoma cancer. Brother had heart disorder. Allergies Allergy/AdvReac Type Severity Reaction Status Date / Time alfuzosin AdvReac Intermediate OTHER Verified 10/08/25 23:05 tamsulosin AdvReac Intermediate OTHER Verified 10/08/25 23:05 Home Medications Medication Instructions Recorded Confirmed Type atorvastatin 40 mg tablet 40 mg PO QAM 06/07/22 10/08/25 History finasteride 5 mg tablet 5 mg PO QAM 03/20/25 10/08/25 History fluconazole 100 mg tablet 100 mg PO QAM 10/08/25 10/08/25 History lidocaine-prilocaine 2.5 %-2.5 % 1 applic topical UD 10/08/25 10/08/25 History topical cream ondansetron HCl 8 mg tablet 8 mg PO Q8 PRN Nausea 10/08/25 10/08/25 History prochlorperazine maleate 10 mg 10 mg PO Q6 PRN Nausea 10/08/25 10/08/25 History tablet sodium chloride 0.9 % (flush) 10 ml UD 10/08/25 10/08/25 History (Normal Saline Flush 0.9 % injection syringe) Past Med/Surg History Problem List (Updated 10/08/25 @ 23:06 by Jose Carlos Byrnes MD) Sepsis (Acute) CAYETANO inhibitor intolerance Elevated prostate specific antigen [PSA] Dyslipidemia, goal LDL below 100 Tobacco use disorder Bilateral inguinal hernia, without obstruction or gangrene, not specified as recurrent 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 Family History Mother Breast cancer Father Cancer colon Social History Smoking Status: Never smoker Tobacco Type: Cigarettes Hx Alcohol Use: No Hx Substance Use: No Preferred Language: Icelandic Communication Ability: Effective Group Dynamics Instructor Required: No Beliefs That Will Affect Care: None marital status: Current Living Situation: Family current occupational status: retired Other Information That Helps Us Care for You: No Feels Safe at Home: Yes Safety Concerns: Feels Safe At This Time Review of Systems Review of Systems: All systems reviewed & are unremarkable except as noted in HPI & below Physical Exam Physical Exam: General- Not in distress. Head- atraumatic Eyes- PERRL. ENT- oral thrush seen Neck- supple, no JVD. Lungs- clear to auscultation no wheezing or crackles Heart- regular rhythm; no murmur, no gallop. Abdomen- normal bowel sounds, soft, nontender, no distension. right nephrostomy tube seen-area no erythema or drainage seen Extremities- no pretibial edema, no erythema seen. Neuro- alert, oriented PERRL, no facial palsy; no dysarthria; moves extremities Results & Data Results & Data Vital Signs (Past 12 Hours) Vital Signs Temp Pulse Pulse Resp BP BP Pulse Ox 10/08/25 23:07 93 H 12 97/57 L 94 10/08/25 22:45 99 H 22 10/08/25 22:45 121/59 L 10/08/25 22:45 121/59 L 10/08/25 22:45 121/59 L 10/08/25 22:45 121/59 L 10/08/25 22:45 121/59 L 10/08/25 22:33 87 20 10/08/25 22:30 152/64 H 10/08/25 22:30 152/64 H 10/08/25 22:30 152/64 H 10/08/25 22:30 152/64 H 10/08/25 22:30 152/64 H 10/08/25 22:27 101 H 22 10/08/25 22:15 101 H 22 10/08/25 22:15 128/77 10/08/25 22:15 128/77 10/08/25 22:15 128/77 10/08/25 22:15 128/77 10/08/25 22:15 128/77 10/08/25 22:00 93 H 20 97 10/08/25 22:00 124/91 10/08/25 22:00 124/91 10/08/25 22:00 124/91 10/08/25 22:00 124/91 10/08/25 22:00 124/91 10/08/25 21:54 104 H 22 97 10/08/25 21:54 103 H 10/08/25 21:37 117/68 10/08/25 21:37 117/68 10/08/25 21:37 117/68 10/08/25 21:37 117/68 10/08/25 21:37 117/68 10/08/25 21:36 104 H 22 94 10/08/25 21:30 97 H 22 95 10/08/25 21:27 102 H 16 94 10/08/25 21:27 102 H 16 126/63 94 10/08/25 21:27 94 10/08/25 21:27 36.4 C 102 H 16 126/63 94 10/08/25 21:15 102 H 23 95 10/08/25 21:09 105 H 22 95 O2 Del Method 10/08/25 23:07 Room Air 10/08/25 22:45 10/08/25 22:45 10/08/25 22:45 10/08/25 22:45 10/08/25 22:45 10/08/25 22:45 10/08/25 22:33 10/08/25 22:30 10/08/25 22:30 10/08/25 22:30 10/08/25 22:30 10/08/25 22:30 10/08/25 22:27 10/08/25 22:15 10/08/25 22:15 10/08/25 22:15 10/08/25 22:15 10/08/25 22:15 10/08/25 22:15 10/08/25 22:00 10/08/25 22:00 10/08/25 22:00 10/08/25 22:00 10/08/25 22:00 10/08/25 22:00 10/08/25 21:54 10/08/25 21:54 10/08/25 21:37 10/08/25 21:37 10/08/25 21:37 10/08/25 21:37 10/08/25 21:37 10/08/25 21:36 10/08/25 21:30 10/08/25 21:27 Room Air 10/08/25 21:27 Room Air 10/08/25 21:27 Room Air 10/08/25 21:27 Room Air 10/08/25 21:15 10/08/25 21:09 Diagnostic Findings Laboratory Results WBC 15.31 K/ul (4.8-10.8) H 10/08/25 21:07 RBC 4.64 M/uL (4.70-6.10) L 10/08/25 21:07 Hgb 13.5 g/dL (14.0-18.0) L 10/08/25 21:07 POC Hgb 13.9 g/dl (14.0-18.0) L 10/08/25 21:15 Hct 40.0 % (42.0-52.0) L 10/08/25 21:07 POC Hct 41 % (42-52) L 10/08/25 21:15 MCV 86.2 fL (80.0-100.0) 10/08/25 21:07 MCH 29.1 pg (25.0-34.0) 10/08/25 21:07 MCHC 33.8 g/dL (32.0-36.0) 10/08/25 21:07 RDW Std Deviation 52.2 fL (36.4-46.3) H 10/08/25 21:07 RDW Coeff of Talib 17.1 % (11.5-14.5) H 10/08/25 21:07 Plt Count 216 K/uL (130-400) 10/08/25 21:07 MPV 10.9 fL (9.4-12.4) 10/08/25 21:07 Immature Gran % (Auto) 0.7 % 10/08/25 21:07 Neut % (Auto) 84.9 % 10/08/25 21:07 Lymph % (Auto) 5.5 % 10/08/25 21:07 [place] % (Auto) 7.5 % 10/08/25 21:07 Eos % (Auto) 0.4 % 10/08/25 21:07 Baso % (Auto) 1.0 % 10/08/25 21:07 Neut # (Auto) 13.01 K/uL (1.40-6.50) H 10/08/25 21:07 Lymph # (Auto) 0.84 K/uL (1.20-3.40) L 10/08/25 21:07 [place] # (Auto) 1.15 K/uL (0.11-0.59) H 10/08/25 21:07 Eos # (Auto) 0.06 K/uL (0.00-0.50) 10/08/25 21:07 Baso # (Auto) 0.15 K/uL (0.00-0.20) 10/08/25 21:07 Immature Gran # (Auto) 0.10 K/uL (0.01-0.20) 10/08/25 21:07 PT 11.0 Seconds (9.0-12.0) 10/08/25 21:07 INR 1.0 (0.9-1.1) 10/08/25 21:07 APTT 30 Seconds (21-31) 10/08/25 21:07 PTT Ratio 1.1 10/08/25 21:07 VBG pH 7.35 (7.36-7.41) L 10/08/25 21:07 VBG pCO2 35 mmHg (38-50) L 10/08/25 21:07 VBG pO2 35 mmHg 10/08/25 21:07 VBG HCO3 19 mmol/L 10/08/25 21:07 VBG O2 Saturation < 60.0 % 10/08/25 21:07 VBG Base Excess -5.6 mEq/L 10/08/25 21:07 POC Sodium 141 mmol/L (135-144) 10/08/25 21:15 Sodium 139 mmol/L (136-145) 10/08/25 21:07 POC Potassium 3.9 mmol/L (3.3-5.0) 10/08/25 21:15 Potassium 3.8 mmol/L (3.5-5.1) 10/08/25 21:07 POC Chloride 107 mmol/L (101-112) 10/08/25 21:15 Chloride 108 mmol/L (98-107) H 10/08/25 21:07 Carbon Dioxide 19 mmol/L (21-32) L 10/08/25 21:07 POC Total CO2 19 mmol/L (24-31) L 10/08/25 21:15 Anion Gap 12 (3-11) H 10/08/25 21:07 POC Anion Gap 20.0 mmol/L (16-25) 10/08/25 21:15 POC BUN 23 mg/dl (7-18) H 10/08/25 21:15 BUN 23 mg/dl (6-23) 10/08/25 21:07 Creatinine 2.64 mg/dl (0.6-1.4) H 10/08/25 21:07 POC Creatinine 2.6 mg/dl (0.6-1.3) H 10/08/25 21:15 Est Cr Clr Drug Dosing 24.6 ml/min 10/08/25 21:07 eGFR 23.29 10/08/25 21:07 BUN/Creatinine Ratio 8.7 (10-20) L 10/08/25 21:07 Glucose 147 mg/dl (70-99(Fasting)) H 10/08/25 21:07 POC Glucose (other) 138 mg/dl (70-99) H 10/08/25 21:15 Lactate 2.0 mmol/L (0.4-2.0) 10/08/25 23:20 Calcium 9.1 mg/dl (8.6-10.3) 10/08/25 21:07 POC Ioniz Calcium Zair[place] 1.13 mmol/l (1.12-1.32) 10/08/25 21:15 Magnesium 1.8 mg/dl (1.7-2.4) 10/08/25 21:07 Total Bilirubin 0.8 mg/dl (0.2-1.0) 10/08/25 21:07 Direct Bilirubin 0.2 mg/dl (0-0.2) 10/08/25 21:07 AST 20 U/L (13-39) 10/08/25 21:07 ALT 16 U/L (7-52) 10/08/25 21:07 Alkaline Phosphatase 122 U/L (34-104) H 10/08/25 21:07 Troponin I High Sens 14.2 pg/ml (0-20) 10/08/25 21:07 B-Natriuretic Peptide 48 pg/ml (0-100) 10/08/25 21:07 Total Protein 7.3 gm/dl (6.0-8.3) 10/08/25 21:07 Albumin 3.7 gm/dl (3.4-5.0) 10/08/25 21:07 Procalcitonin 0.23 ng/ml (0-0.5) 10/08/25 21:07 Urine Color See Comment 10/08/25 22:51 Urine Appearance Turbid (Clear) A 10/08/25 22:51 Urine pH Not Reportable 10/08/25 22:51 Ur Specific [place] 1.022 (1.000-1.030) 10/08/25 22:51 Urine Protein Not Reportable 10/08/25 22:51 Urine Glucose (UA) Not Reportable 10/08/25 22:51 Urine Ketones Not Reportable 10/08/25 22:51 Urine Blood Not Reportable 10/08/25 22:51 Urine Nitrite Not Reportable 10/08/25 22:51 Urine Bilirubin Not Reportable 10/08/25 22:51 Urine Urobilinogen Not Reportable 10/08/25 22:51 Ur Leukocyte Esterase Not Reportable 10/08/25 22:51 Urine RBC >20 /hpf (0-2) H 10/08/25 22:51 Urine WBC >50 /hpf (0-5) H 10/08/25 22:51 Ur Epithelial Cells 3-5 /hpf (0-2) H 10/08/25 22:51 Uric Acid Crystals Present (None Prsent) A 10/08/25 22:51 Urine Bacteria 4+ (None Seen) H 10/08/25 22:51 Urine Comment 10/08/25 22:51 SARS-CoV-2 (PCR) NEGATIVE (Negative) 10/08/25 21:05 Influenza Type A (PCR) Negative (Neg) 10/08/25 21:05 Influenza Type B (PCR) Negative (Neg) 10/08/25 21:05 RSV (RT-PCR) Negative (Neg) 10/08/25 21:05 Impressions Chest X-Ray 10/08/25 20:52 Exam(s): XR CXR 1 VIEW EXAM: XR Chest, 1 View CLINICAL HISTORY: Reason for exam: Sepsis. TECHNIQUE: Frontal view of the chest. COMPARISON: 01/11/2018 FINDINGS: Lungs: The lungs are well inflated and clear. No acute infiltrate or consolidation is seen. Pleural space: Unremarkable. No pneumothorax. Heart: Unremarkable. No cardiomegaly. Mediastinum: Unremarkable. Normal mediastinal contour. Bones/joints: Previous right shoulder arthroplasty. Mild osteophytosis in the lower thoracic spine. No acute fracture. Vasculature: The aortic arch is mildly calcified but nondilated. Tubes, lines and devices: There is a Port-A-Cath on the right with the catheter tip in the superior vena cava, just above the right atrium. Upper abdomen: Unremarkable as visualized. No pneumoperitoneum under the diaphragm. IMPRESSION: 1. There is a Port-A-Cath on the right with the catheter tip in the superior vena cava, just above the right atrium. 2. The lungs are well inflated and clear. No acute infiltrate or consolidation is seen. Electronically signed by: Familia Acevedo MD 10/08/25 22:[address] 10/08/25 20:52 Exam(s): CT HEAD Without Contrast EXAM: CT Head Without Intravenous Contrast CLINICAL HISTORY: Reason for exam: weakness. TECHNIQUE: Axial computed tomography images of the head/brain without intravenous contrast. CTDI is 27.84 mGy and DLP is 1622.97 mGy-cm. Automated exposure control was utilized for the study. A dose lowering technique was utilized adhering to the principles of ALARA. COMPARISON: 01/11/2018 FINDINGS: Brain: Moderate atrophy and periventricular white matter low density consistent with chronic small vessel disease and/or senescent changes, similar to previous. No acute large vessel infarct or intracranial hemorrhage is seen. Ventricles: Mildly dilated. No mass or hemorrhage. Bones/joints: Unremarkable. No acute fracture. Soft tissues: Unremarkable. Sinuses: Unremarkable as visualized. No acute sinusitis. Mastoid air cells: Unremarkable as visualized. No mastoid effusion. IMPRESSION: Moderate atrophy and periventricular white matter low density consistent with chronic small vessel disease and/or senescent changes, similar to previous. No acute large vessel infarct or intracranial hemorrhage is seen. Electronically signed by: Familia Acevedo MD 10/08/25 22:16 PM Abdomen/Pelvis CT 10/08/25 21:27 CR Exam(s): CT ABDOMEN + PELVIS Without Contrast EXAM: CT Abdomen and Pelvis Without Intravenous Contrast CLINICAL HISTORY: Reason for exam: Left lower quadrant abd pain. TECHNIQUE: Axial computed tomography images of the abdomen and pelvis without intravenous contrast. CTDI is 27.84 mGy and DLP is 1622.97 mGy-cm. Automated exposure control was utilized for the study. A dose lowering technique was utilized adhering to the principles of ALARA. COMPARISON: Ultrasound from 08/27/2025 FINDINGS: Lung bases: Unremarkable. No mass. No consolidation. ABDOMEN: Liver: Unremarkable. Gallbladder and bile ducts: There is a 9 mm layer of 2-3 mm calcified gallstones in the dependent portion of the nondilated gallbladder. No surrounding inflammation, biliary duct dilation, or choledocholithiasis. Pancreas: Unremarkable. No ductal dilation. Spleen: Unremarkable. No splenomegaly. Adrenals: Unremarkable. No mass. Kidneys and ureters: There is a percutaneous nephrostomy tube on the right. There is mild right hydronephrosis and hydroureter. No calculus is seen. 3.3 cm simple cyst extending off the upper pole of the right kidney. No follow-up is required. Stomach and bowel: There is diverticulosis of the sigmoid colon without evidence of acute diverticulitis. Bowel loops are nondilated. The appendix is normal. Scattered gas fluid levels in nondilated small bowel and colon suggests enteritis or ileus. PELVIS: Appendix: See above. Bladder: There is a Chan catheter in place with the balloon inflated in the posterior penile urethra. Slight inflammation surrounding the urinary bladder. The bladder is only partially distended but contains a small amount of gas and demonstrates a 3.3 cm diverticulum superiorly to the left. No stones. Reproductive: Unremarkable as visualized. ABDOMEN and PELVIS: Intraperitoneal space: Unremarkable. No free air. No significant fluid collection. Bones/joints: No acute fracture. No dislocation. Soft tissues: Unremarkable. Vasculature: Unremarkable. No abdominal aortic aneurysm. Lymph nodes: Unremarkable. No enlarged lymph nodes. IMPRESSION: 1. There is a Chan catheter in place with the balloon inflated in the posterior penile urethra. 2. Slight inflammation surrounding the urinary bladder. The bladder is only partially distended but contains a small amount of gas and demonstrates a 3.3 cm diverticulum superiorly to the left. Consider cystitis . 3. There is a percutaneous nephrostomy tube on the right. There is mild right hydronephrosis and hydroureter. No calculus is seen. 4. There is diverticulosis of the sigmoid colon without evidence of acute diverticulitis. Bowel loops are nondilated. The appendix is normal. Scattered gas fluid levels in nondilated small bowel and colon suggests enteritis or ileus. Communications: Call Doctor Above results Electronically signed by: Familia Acevedo MD 10/08/25 22:26 PM ECG Additional Comments: ECG. Sinus tach with first-degree AV block at rate of 107. Nonspecific ST abnormalities. QTc 443. Code Status & VTE Plan VTE Prophylaxis Plan VTE Prophylaxis will be ordered: Yes
[2025-10-09] MEDS: FLUCONAZOLE 100 MG TAB PO SCH (08:45)
[2025-10-09] MEDS: FINASTERIDE 5 MG TAB PO SCH (08:45)
[2025-10-09] MEDS: ATORVASTATIN 40 MG TAB PO SCH (08:45)
--- NOTE | 2025-10-09 13:05 | Urology Consultation ---
Date of Consultation October 09, 2025 Assessment & Plan (1) Ureteral cancer: (2) Hematuria, gross: (3) Acute urinary retention: (4) Trauma of urethra: (5) Tobacco use disorder: (6) Elevated prostate specific antigen [PSA]: (7) Sepsis: Plan Patient with gross hematuria likely secondary to catheter trauma. 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 Has followed with outlying urologist as well as oncology. Patient was limited in ability to give history or information. Was unaware of the issues going on currently with his catheter nor the issues with blood in the urine. Majority of information gathered from medical records as well as limited information from conversation Patient independently assessed, examined, interviewed, and evaluated. Patient's vitals and labs were all reviewed. White count 15.31. Creatinine 2.64. Creatinine significantly increased from previous assessment and August. Hemoglobin 13.5. Blood pressure is 116/56. Pulse 73. Respirations 19. Temperature 36.4. Oxygen saturation 93% on room air. Pertinent values in the HPI and plan section. Imaging was reviewed interpreted by myself. Patient appears to have displaced catheter on imaging causing obstructive issues. Appears to be in the proximal urethra. This had subsequently been exchanged. There did appear to be gas in the bladder as well as the findings of a nephrostomy tube which did appear to be in good position. Debris was also seen within the bladder. Otherwise agree with read. Vitals were reviewed. Discussed findings extensively with patient and family. Patient's complicated medical and surgical history was reviewed and summarized above. Patient's surgical, medical, social, and family history were all reviewed with pertinent values as above. Discussed patient's current diagnosis as well as concerns and issues. Reviewed different options moving forward. Discussed potential risks and benefits as well as possible options and concerns. Reviewed potential surgical options and interventions. Discussed potential issues and concerns related to intervention. Risk and benefits were discussed extensively with patient and any available family. Discussed potential risks related to anesthesia. Discussed risks of bleeding infection and injury. Limited conversation with patient today however does appear that he has a current clinical plan in place for management of his metastatic disease. Did briefly discuss with patient possible need for clot evacuation or possible procedure if patient does develop some sort of obstructive issue with clots. Additionally discussed issues if hemoglobin drop. Reviewed risk and benefits of possible bedside or surgical intervention. At this point though both appear to be improving. Had been undergoing treatment with most recent treatment being approximately a week ago. Does appear to be on a combination treatment with monoclonal antibody treatment. Patient appears to have developed hematuria likely secondary to trauma. The catheter have been exchanged and does appear to be draining well now. Does appear to be older appearing blood. Has nephrostomy tube in place without major issue. Will plan to continue to monitor. Will assess if any issues with obstruction at this point it does appear to be draining well and does appear to be clearing based on the appearance of the urine in the tubing. Will plan to monitor for now. Patient should follow-up closely with his oncology team as well as with his primary urology team. Patient's complicated medical and surgical history is reviewed and surmise above all imaging was reviewed interpreted by myself all labs were reviewed. History of Present Illness Attending Physician: Jese Daly DO History of Present Illness Consult for urinary issues with hematuria. Patient with complex history and follows with outside urologist. 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 Had previously been seen by our group in 2018 when he was admitted for retention and bleeding. Patient is currently undergoing targeted/immunotherapy for metastatic disease. Has nephrostomy tube in the right kidney. Patient had presented with obstruction secondary to displaced catheter. Patient was unable to answer many questions. Was oriented to self but not events and situation. Patient was unaware of the ongoing issues with hematuria with our conversation today. Majority of information gathered from records. Patient appears to have presented with catheter balloon in the penile urethra. This have been exchanged by the ER. Had gas and debris in the bladder on CT imaging. Has nephrostomy tube in the right that appears to be in still good position. Is having issues with hematuria after the catheter placement likely secondary to trauma from the displaced catheter. Patient does admit to some mild to moderate discomfort in pelvis and groin going to back and side in waves. Is dealing with acute illness and UTI. Has been deconditioned from this. Additionally is undergoing immuno/targeted therapy and advanced treatments with oncology that has also caused some issues with deconditioning. Has decreased mobility significantly with acute issues. Has been tolerating catheter. No severe nausea or vomiting. Currently no fevers. Allergies Allergy/AdvReac Type Severity Reaction Status Date / Time alfuzosin AdvReac Intermediate OTHER Verified 10/08/25 23:05 tamsulosin AdvReac Intermediate OTHER Verified 10/08/25 23:05 Home Medications Medication Instructions Recorded Confirmed Type atorvastatin 40 mg tablet 40 mg PO QAM 06/07/22 10/08/25 History finasteride 5 mg tablet 5 mg PO QAM 03/20/25 10/08/25 History fluconazole 100 mg tablet 100 mg PO QAM 10/08/25 10/08/25 History lidocaine-prilocaine 2.5 %-2.5 % 1 applic topical UD 10/08/25 10/08/25 History topical cream ondansetron HCl 8 mg tablet 8 mg PO Q8 PRN Nausea 10/08/25 10/08/25 History prochlorperazine maleate 10 mg 10 mg PO Q6 PRN Nausea 10/08/25 10/08/25 History tablet sodium chloride 0.9 % (flush) 10 ml UD 10/08/25 10/08/25 History (Normal Saline Flush 0.9 % injection syringe) Patient History Medical History Ureteral cancer Surgical History History of amputation of finger of right hand Family History Mother Breast cancer Father Cancer colon Social History Smoking Status: Never smoker Tobacco Type: Cigarettes Hx Alcohol Use: No Hx Substance Use: No Preferred Language: Serbian Communication Ability: Effective Financing Analyst Required: No Beliefs That Will Affect Care: None marital status: Current Living Situation: Family current occupational status: retired Other Information That Helps Us Care for You: No Feels Safe at Home: Yes Safety Concerns: Feels Safe At This Time Review of Systems Review of Systems: All systems reviewed & are unremarkable except as noted in HPI & below and Unobtainable due to cognitive status Limited secondary to acute delirium/baseline cognitive issues. Physical Exam Physical Exam: General: Alert but only oriented to self. Otherwise in no acute distress. Cachectic HEENT: Normocephalic Atraumatic. Inspection normal. Cranial Nerves 2-12 Grossly intact. Nares are clear. Neck is supple. Normal inspection of face. Normal inspection of neck. Neurologic: No deficits on inspection. Baseline for motor function and sensory. Psychologic: Pleasantly confused, not agitated. Respiratory: Nonlabored. No use of accessory muscles. No tachypnea or dyspnea. Cardiovascular: No tachycardia Skin: [place] and Dry. No rashes or visible lesions. Extremities: Moving without issues. No motor deficits on inspection. Left finger amputation Lymphatics: Mild edema Abdomen: Soft Non-distended. No rebound or guarding. : Catheter in place draining burgundy/dark red urine which appears to be clearing in the tube. Results & Data Vital Signs (Past 12 Hours) Vital Signs Pulse Pulse Resp BP BP Pulse Ox Pulse Ox 10/09/25 12:08 73 10/09/25 07:03 64 10/09/25 06:00 65 19 116/56 L 93 10/09/25 05:00 67 20 109/56 L 91 10/09/25 04:00 73 22 108/52 L 91 10/09/25 03:15 77 18 91 10/09/25 03:00 79 14 107/54 L 92 10/09/25 02:59 10/09/25 02:48 73 16 101/58 L 93 10/09/25 02:45 92 10/09/25 02:10 75 10/09/25 01:35 75 18 120/63 91 10/09/25 01:15 78 23 111/58 L 90 O2 Del Method O2 Del Method 10/09/25 12:08 10/09/25 07:03 10/09/25 06:00 Room Air 10/09/25 05:00 Room Air 10/09/25 04:00 Room Air 10/09/25 03:15 Room Air 10/09/25 03:00 Room Air 10/09/25 02:59 Room Air 10/09/25 02:48 Room Air 10/09/25 02:45 Room Air 10/09/25 02:10 10/09/25 01:35 Room Air 10/09/25 01:15 PG Care Time/CCT Total # of Minutes Spent Total Time Spent with Patient: Total time spent is greater than 50% in coordination of care (as documented) at patient's floor/unit and/or counseling patient: Coding Level of Care Code 25846 INT INP/OBS CARE 3/75MIN Diagnoses Ureteral cancer C66.9 Hematuria, gross R31.0 Acute urinary retention R33.8 Trauma of urethra S37.30XA Tobacco use disorder F17.200 Elevated prostate specific antigen [PSA] R97.20 Sepsis A41.9
[2025-10-09 13:07] LABS: Cdiff Toxin B Gene (2yr or >) Negative Cdiff Gene (Neg)
--- NOTE | 2025-10-09 14:24 | Hospitalist Progress Note ---
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 He is on fluconazole for thrush and says he has 4 more doses left. His last chemo was on 10/01/2025. Last few days feeling weak. Today was not able to ambulate because of weakness in the legs. Has some diarrhea. No blood in the stools. Appetite is down. Feeling somewhat short of breath. No headache. No cough. No runny nose or sore throat. No chest pain. No abdominal pain. Hemodynamics are okay. Patient lives with his son. Daughter is in the room.His Solis catheter was not in place so it was removed and replaced in the ER. Currently having hematuria. Daughter says he gets hematuria on and off. #Sepsis -Secondary to UTI -Catheter associated UTI -Initial lactic is 2.6 and repeat is 2 -UA is positive -Has chronic Solis -Has right nephrostomy tubes Plan -Continue zosyn for now -Follow urine and blood cultures #Hematuria -Suspect secondary to trauma from solis misplacement -Urology consulted and replace solis -Monitor hematuria and Hgb #ANDRE on CKD3 -Suspect post renal from bladder obstruction from solis misplacement -Oslis has been replaced Plan -Continue IVF for today -BMP in AM -Avoid nephrotoxic agents if possible #History of high-grade urothelial carcinoma Involving right ureter with bladder involvement and retroperitoneal lymphadenopathy Currently on Enfortumab and pembrolizumab every 21 days Last dose was on 10/01/2025 Has right nephrostomy tube placement History of hematuria requiring continuous bladder irrigation in past Follows with heme-onc BPH On Proscar #Anemia -Chronic, POA -No blood loss anemia -At baseline -Monitor #Thrush On fluconazole Says 4 more days left Says he does not want to take it If refusing may place him on nystatin swish and swallow #Dyslipidemia On statin Status post left orchiectomy in 2011 for hydrocele DVT prophylaxis SCDs for now Disposition Telemetry CODE STATUS full code if there is chance of recovery as per my discussion with the patient. Admission and Anticipated Discharge Date Admission Date: October 09, 2025 Subjective seen in ED c2b with daughter at bedside. he is feeling better. he would like to go home. Patient denies F/C, CP, palpitations, SOB, dyspnea, abd pain, N/V/D Physical Exam Physical Exam: Vitals and labs reviewed General: elderly and chronically ill appearing in NAD HEENT: EOMI, PERRLA Neck: Supple Cardiac: RRR no rubs gallops or murmurs Lungs: CTA no rhonchi wheezing or rales Abd: S NT ND BS positive : Solis MSK: Full ROM. No obvious deformities Ext: No Edema cyanosis Skin: Warm, Dry Neuro: AOx3 No focal deficits. Psych: Normal Mood Results & Data Results & Data Vital Signs (Past 12 Hours) Vital Signs Pulse Resp BP Pulse Ox Pulse Ox O2 Del Method O2 Del Method 10/09/25 12:08 73 10/09/25 07:03 64 10/09/25 06:00 65 19 116/56 L 93 Room Air 10/09/25 05:00 67 20 109/56 L 91 Room Air 10/09/25 04:00 73 22 108/52 L 91 Room Air 10/09/25 03:15 77 18 91 Room Air 10/09/25 03:00 79 14 107/54 L 92 Room Air 10/09/25 02:59 Room Air 10/09/25 02:48 73 16 101/58 L 93 Room Air 10/09/25 02:45 92 Room Air Laboratory Results Abnormal lab results 10/08/25 10/08/25 10/08/25 Range/Units 21:07 21:15 22:51 WBC 15.31 H (4.8-10.8) K/ul RBC 4.64 L (4.70-6.10) M/uL Hgb 13.5 L (14.0-18.0) g/dL POC Hgb 13.9 L (14.0-18.0) g/dl Hct 40.0 L (42.0-52.0) % POC Hct 41 L (42-52) % RDW Std Deviation 52.2 H (36.4-46.3) fL RDW Coeff of Talib 17.1 H (11.5-14.5) % Neut # (Auto) 13.01 H (1.40-6.50) K/uL Lymph # (Auto) 0.84 L (1.20-3.40) K/uL [place]rell # (Auto) 1.15 H (0.11-0.59) K/uL VBG pH 7.35 L (7.36-7.41) VBG pCO2 35 L (38-50) mmHg Chloride 108 H (98-107) mmol/L Carbon Dioxide 19 L (21-32) mmol/L POC Total CO2 19 L (24-31) mmol/L Anion Gap 12 H (3-11) POC BUN 23 H (7-18) mg/dl Creatinine 2.64 H (0.6-1.4) mg/dl POC Creatinine 2.6 H (0.6-1.3) mg/dl BUN/Creatinine Ratio 8.7 L (10-20) Glucose 147 H (70-99(Fasting)) mg/dl POC Glucose (other) 138 H (70-99) mg/dl Lactate 2.6 H* (0.4-2.0) mmol/L Alkaline Phosphatase 122 H (34-104) U/L Urine Appearance Turbid A (Clear) Urine RBC >20 H (0-2) /hpf Urine WBC >50 H (0-5) /hpf Ur Epithelial Cells 3-5 H (0-2) /hpf Uric Acid Crystals Present A (None Prsent) Urine Bacteria 4+ H (None Seen)
[2025-10-09] MEDS: SODIUM CHLORIDE 0.9% 250 ML IV ONE (17:08)
[2025-10-09 19:51] LABS: Adenovirus F 40/41 PCR Not Detected (NotDetected); Campylobacter PCR Not Detected (NotDetected); Enteroaggregative E.coli(EAEC) Not Detected (NotDetected); Shiga-like Toxin E.coli (STEC) Not Detected (NotDetected); Vibrio species PCR Not Detected (NotDetected)
[2025-10-10 06:10] LABS: Hematocrit (blood only) 32.7 % (42.0-52.0); Hemoglobin 10.9 g/dL (14.0-18.0); Immature Granulocytes # (auto) 0.10 K/uL (0.01-0.20); Immature Granulocytes % (auto) 1.1 %; Mean Corpuscular Hemoglobin 29.2 pg (25.0-34.0); Mean Corpuscular Volume 87.7 fL (80.0-100.0); Platelet Count 166 K/uL (130-400); RDW Standard Deviation 53.5 fL (36.4-46.3); Red Blood Count 3.73 M/uL (4.70-6.10); White Blood Count 9.19 K/ul (4.8-10.8)
[2025-10-10 06:26] LABS: Anion Gap 8.0 (3-11); Anion Gap 9.0 (3-11); Blood Urea Nitrogen 21.0 mg/dl (6-23); Calcium 7.7 mg/dl (8.6-10.3); Carbon Dioxide 18.0 mmol/L (21-32); Chloride 115.0 mmol/L (98-107); Chloride 116.0 mmol/L (98-107); Creatinine Clr Calc Pharmacy 28.6 ml/min; Creatinine Clr Calc Pharmacy 29.6 ml/min; Glucose 90.0 mg/dl (70-99(Fasting)); Magnesium 1.8 mg/dl (1.7-2.4); Potassium 3.3 mmol/L (3.5-5.1); Sodium 142.0 mmol/L (136-145)
--- NOTE | 2025-10-10 10:12 | Hospitalist Progress Note ---
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 He is on fluconazole for thrush and says he has 4 more doses left. His last chemo was on 10/01/2025. Last few days feeling weak. Today was not able to ambulate because of weakness in the legs. Has some diarrhea. No blood in the stools. Appetite is down. Feeling somewhat short of breath. No headache. No cough. No runny nose or sore throat. No chest pain. No abdominal pain. Hemodynamics are okay. Patient lives with his son. Daughter is in the room.His Solis catheter was not in place so it was removed and replaced in the ER. Currently having hematuria. Daughter says he gets hematuria on and off. #Sepsis -Secondary to UTI -Catheter associated UTI -Initial lactic is 2.6 and repeat is 2 -UA is positive -Has chronic Solis -Has right nephrostomy tubes Plan -Continue zosyn for now -Follow urine and blood cultures -Possibly deescalate to cefdinir and discharge home tomorrow #Hematuria -Suspect secondary to trauma from solis misplacement -Urology consulted and replace solis -Monitor hematuria and Hgb #ANDRE on CKD3 -Suspect post renal ANDRE from bladder obstruction from solis misplacement -Solis has been replaced -Cr improving Plan -Continue IVF for today -BMP in AM -Avoid nephrotoxic agents if possible #Diarrhea -non bloody, POA. -Infectious panel negative -Suspect secondary to chemo -Give imodium #History of high-grade urothelial carcinoma Involving right ureter with bladder involvement and retroperitoneal lymphadenopathy Currently on Enfortumab and pembrolizumab every 21 days Last dose was on 10/01/2025 Has right nephrostomy tube placement History of hematuria requiring continuous bladder irrigation in past Follows with heme-onc BPH On Proscar #Anemia -Chronic, POA -No blood loss anemia -Hgb down to 10.9 today, suspect dilutional from IVF -Monitor #Thrush On fluconazole Says he does not want to take it If refusing may place him on nystatin swish and swallow #Dyslipidemia On statin Status post left orchiectomy in 2012 for hydrocele DVT prophylaxis SCDs for now Disposition Telemetry CODE STATUS full code if there is chance of recovery as per my discussion with the patient. I spent a total of 57 minutes coordinating, documenting, and providing care for this patient excluding time spent in the performance of separately billed services. This included personally reviewing all current laboratories and imaging studies, medical reconciliation, outpatient chart review and discussion with specialists Admission and Anticipated Discharge Date Admission Date: October 09, 2025 Subjective Feeling better. his main complaint is non bloody diarrhea today. no other complaints. Physical Exam Physical Exam: Vitals and labs reviewed General: elderly and chronically ill appearing in NAD HEENT: EOMI, PERRLA Neck: Supple Cardiac: RRR no rubs gallops or murmurs Lungs: CTA no rhonchi wheezing or rales Abd: S NT ND BS positive : Solis MSK: Full ROM. No obvious deformities Ext: No Edema cyanosis Skin: Warm, Dry Neuro: AOx3 No focal deficits. Psych: Normal Mood Results & Data Results & Data Vital Signs (Past 12 Hours) Vital Signs Temp Pulse Resp BP Pulse Ox O2 Del Method 10/10/25 07:14 36.3 C L 66 19 141/63 H 96 Room Air 10/10/25 04:20 36.6 C 43 L 20 141/70 H 94 Room Air 10/10/25 01:15 36.7 C 64 20 133/73 97 Room Air Laboratory Results Abnormal lab results 10/10/25 10/10/25 10/10/25 Range/Units 05:24 05:24 05:24 RBC 3.73 L (4.70-6.10) M/uL Hgb 10.9 L (14.0-18.0) g/dL Hct 32.7 L (42.0-52.0) % RDW Std Deviation 53.5 H (36.4-46.3) fL RDW Coeff of Talib 17.1 H (11.5-14.5) % Neut # (Auto) 6.88 H (1.40-6.50) K/uL Potassium 3.3 L 3.3 L (3.5-5.1) mmol/L Chloride 116 H 115 H (98-107) mmol/L Carbon Dioxide 18 L (21-32) mmol/L Creatinine (0.6-1.4) mg/dl BUN/Creatinine Ratio (10-20) Calcium (8.6-10.3) mg/dl 10/10/25 10/10/25 10/10/25 Range/Units 05:24 05:24 05:24 RBC (4.70-6.10) M/uL Hgb (14.0-18.0) g/dL Hct (42.0-52.0) % RDW Std Deviation (36.4-46.3) fL RDW Coeff of Talib (11.5-14.5) % Neut # (Auto) (1.40-6.50) K/uL Potassium (3.5-5.1) mmol/L Chloride (98-107) mmol/L Carbon Dioxide 18 L (21-32) mmol/L Creatinine 2.27 H D 2.20 H (0.6-1.4) mg/dl BUN/Creatinine Ratio 9.3 L 9.5 L (10-20) Calcium 7.7 L (8.6-10.3) mg/dl 10/10/25 Range/Units 05:24 RBC (4.70-6.10) M/uL Hgb (14.0-18.0) g/dL Hct (42.0-52.0) % RDW Std Deviation (36.4-46.3) fL RDW Coeff of Talib (11.5-14.5) % Neut # (Auto) (1.40-6.50) K/uL Potassium (3.5-5.1) mmol/L Chloride (98-107) mmol/L Carbon Dioxide (21-32) mmol/L Creatinine (0.6-1.4) mg/dl BUN/Creatinine Ratio (10-20) Calcium 7.7 L (8.6-10.3) mg/dl
[2025-10-10] MEDS ORDERED: Nursing to Pharmacy Communication SCH (10:15)
[2025-10-10] MEDS: LOPERAMIDE HCL 2 MG CAP PO PRN (10:35)
[2025-10-10] MEDS: POTASSIUM CHLORIDE CRTAB 20 MEQ TABCR PO STA ×2 (10:35→10:39)
--- NOTE | 2025-10-10 20:45 | Electrocardiogram Report ---
Test Reason : Blood Pressure : */* mmHG Vent. Rate : 107 BPM Atrial Rate : 107 BPM P-R Int : 218 ms QRS Dur : 86 ms QT Int : 332 ms P-R-T Axes : 15 -36 23 degrees QTcB Int : 443 ms Sinus tachycardia with 1st degree A-V block Left axis deviation Nonspecific ST abnormality Abnormal ECG When compared with ECG of 13-Jan-2018 06:46, Vent. rate has increased by 41 bpm QRS duration has decreased Confirmed by Ebonie Chavez (Emilie) on 10/10/2025 8:45:33 PM Referred By: REFERRED SELF Confirmed By: Ebonie Chavez
[2025-10-11 06:02] LABS: Hematocrit (blood only) 34.4 % (42.0-52.0); Hemoglobin 11.4 g/dL (14.0-18.0); Mean Corpuscular Hemoglobin 28.9 pg (25.0-34.0); Mean Corpuscular Volume 87.3 fL (80.0-100.0); Platelet Count 185 K/uL (130-400); RDW Standard Deviation 53.1 fL (36.4-46.3); Red Blood Count 3.94 M/uL (4.70-6.10); White Blood Count 10.23 K/ul (4.8-10.8)
[2025-10-11 06:22] LABS: Anion Gap 10.0 (3-11); Blood Urea Nitrogen 15.0 mg/dl (6-23); Calcium 7.8 mg/dl (8.6-10.3); Carbon Dioxide 17.0 mmol/L (21-32); Chloride 114.0 mmol/L (98-107); Creatinine Clr Calc Pharmacy 34.9 ml/min; Glucose 87.0 mg/dl (70-99(Fasting)); Potassium 3.5 mmol/L (3.5-5.1); Sodium 141.0 mmol/L (136-145)
--- NOTE | 2025-10-11 10:14 | Hospitalist Progress Note ---
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 He is on fluconazole for thrush and says he has 4 more doses left. His last chemo was on 10/01/2025. Last few days feeling weak. Today was not able to ambulate because of weakness in the legs. Has some diarrhea. No blood in the stools. Appetite is down. Feeling somewhat short of breath. No headache. No cough. No runny nose or sore throat. No chest pain. No abdominal pain. Hemodynamics are okay. Patient lives with his son. Daughter is in the room.His Solis catheter was not in place so it was removed and replaced in the ER. Currently having hematuria. Daughter says he gets hematuria on and off. #Sepsis -Secondary to UTI -Catheter associated UTI -Initial lactic is 2.6 and repeat is 2 -UA is positive -Has chronic Solis -Has right nephrostomy tubes Plan -Deescalate to CTX -Follow urine and blood cultures -Possibly switch to cefdinir and discharge home tomorrow -PT/OT eval #Diarrhea -non bloody, POA. -Infectious panel negative -Suspect secondary to chemo as diarrhea started a few days after chemo -Still having frequent diarrhea with imodium Plan -Increase imodium today -monitor stool counts #Hematuria -Suspect secondary to trauma from solis misplacement -Urology consulted and replace solis -Monitor hematuria and Hgb #ANDRE on CKD3 -Suspect post renal ANDRE from bladder obstruction from solis misplacement -Solis has been replaced -Cr improving Plan -Continue IVF for today -BMP in AM -Avoid nephrotoxic agents if possible #History of high-grade urothelial carcinoma Involving right ureter with bladder involvement and retroperitoneal lymphadenopathy Currently on Enfortumab and pembrolizumab every 21 days Last dose was on 10/01/2025 Has right nephrostomy tube placement History of hematuria requiring continuous bladder irrigation in past Follows with heme-onc BPH On Proscar #Anemia -Chronic, POA -No blood loss anemia -Hgb down to 10.9 today, suspect dilutional from IVF -Monitor #Thrush On fluconazole Says he does not want to take it If refusing may place him on nystatin swish and swallow #Dyslipidemia On statin Status post left orchiectomy in 2012 for hydrocele DVT prophylaxis SCDs for now Disposition Telemetry CODE STATUS full code if there is chance of recovery as per my discussion with the patient. I spent a total of 51 minutes coordinating, documenting, and providing care for this patient excluding time spent in the performance of separately billed services. This included personally reviewing all current laboratories and imaging studies, medical reconciliation, outpatient chart review and discussion with specialists Admission and Anticipated Discharge Date Admission Date: October 09, 2025 Subjective Feeling better. his main complaint is non bloody diarrhea today. no other complaints. Physical Exam Physical Exam: Vitals and labs reviewed General: elderly and chronically ill appearing in NAD HEENT: EOMI, PERRLA Neck: Supple Cardiac: RRR no rubs gallops or murmurs Lungs: CTA no rhonchi wheezing or rales Abd: S NT ND BS positive : Solis MSK: Full ROM. No obvious deformities Ext: No Edema cyanosis Skin: Warm, Dry Neuro: AOx3 No focal deficits. Psych: Normal Mood Results & Data Results & Data Vital Signs (Past 12 Hours) Vital Signs Temp Pulse Resp BP Pulse Ox O2 Del Method 10/11/25 07:10 36.4 C L 62 19 166/70 H 96 Room Air 10/11/25 03:27 36.6 C 63 18 148/71 H 95 Room Air 10/10/25 23:00 36.5 C 68 18 172/77 H 97 Room Air Laboratory Results Abnormal lab results 10/11/25 Range/Units 05:21 RBC 3.94 L (4.70-6.10) M/uL Hgb 11.4 L (14.0-18.0) g/dL Hct 34.4 L (42.0-52.0) % RDW Std Deviation 53.1 H (36.4-46.3) fL RDW Coeff of Talib 16.9 H (11.5-14.5) % Chloride 114 H (98-107) mmol/L Carbon Dioxide 17 L (21-32) mmol/L Creatinine 1.87 H D (0.6-1.4) mg/dl BUN/Creatinine Ratio 8.0 L (10-20) Calcium 7.8 L (8.6-10.3) mg/dl
[2025-10-11] MEDS: cefTRIAXone SODIUM 2,000 MG/50 ML BAG IV SCH (11:16)
[2025-10-11] MEDS: LOPERAMIDE HCL 2 MG CAP PO SCH (11:16)
[2025-10-11] MEDS: MICONAZOLE NITRATE POWDER 85 GM EXT PRN (21:14)
[2025-10-12 06:33] LABS: Hematocrit (blood only) 32.4 % (42.0-52.0); Hemoglobin 11.2 g/dL (14.0-18.0); Mean Corpuscular Hemoglobin 29.5 pg (25.0-34.0); Mean Corpuscular Volume 85.3 fL (80.0-100.0); Platelet Count 188 K/uL (130-400); RDW Standard Deviation 50.5 fL (36.4-46.3); Red Blood Count 3.80 M/uL (4.70-6.10); White Blood Count 8.42 K/ul (4.8-10.8)
[2025-10-12 06:50] LABS: Anion Gap 11.0 (3-11); Blood Urea Nitrogen 11.0 mg/dl (6-23); Calcium 7.8 mg/dl (8.6-10.3); Carbon Dioxide 18.0 mmol/L (21-32); Chloride 111.0 mmol/L (98-107); Creatinine Clr Calc Pharmacy 44.1 ml/min; Glucose 79.0 mg/dl (70-99(Fasting)); Potassium 3.3 mmol/L (3.5-5.1); Sodium 140.0 mmol/L (136-145)
[2025-10-12 07:15] VITALS: RESP 19; TEMP 97.9; O2SAT 94
--- NOTE | 2025-10-12 08:08 | Urology Progress Note ---
Date of Service October 12, 2025 Assessment & Plan (1) Trauma of urethra: (2) Acute urinary retention: Plan: Patient with gross hematuria likely secondary to catheter trauma. 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 Has followed with outlying urologist as well as oncology Urine clear now. hgb 11.2 ANDRE improved. Cr 1.5 Patient should follow-up closely with his oncology team as well as with his primary urology team. 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 Has followed with outlying urologist as well as oncology No new complaints today. Says his catheter has been draining well. Physical Exam Physical Exam: alert, easily awakened. VSS. NAD Catheter draining clear yellow urine. Nephrostomy tube with bloody drainage Abdomen soft, nontender Results & Data Vital Signs (Past 12 Hours) Vital Signs Temp Pulse Pulse Resp BP Pulse Ox O2 Del Method 10/12/25 07:14 36.6 C 64 19 136/55 L 94 Room Air 10/12/25 03:14 36.5 C 60 16 156/75 H 95 Room Air 10/11/25 23:50 60 10/11/25 23:26 36.5 C 65 18 176/72 H 97 Room Air 10/11/25 21:05 Room Air PG Care Time/CCT Total # of Minutes Spent Total Time Spent with Patient: Total time spent is greater than 50% in coordination of care (as documented) at patient's floor/unit and/or counseling patient: Coding Level of Care Code 97858 SUB INP/OBS CARE 11/07MIN Diagnoses Trauma of urethra S37.30XA Acute urinary retention R33.8 Hematuria, gross R31.0
[2025-10-12] MEDS: POTASSIUM CHLORIDE CRTAB 20 MEQ TABCR PO STA (08:21)
--- NOTE | 2025-10-12 10:05 | Discharge Summary ---
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 Also had misplaced solis catheter. ANRDE on admission. Urology was consulted and replaced solis. solis has been draining clear urine. ANDRE resolved with fixing the solis. Likely post renal ANDRE. Regard ing UTI, he was started on zosyn. Urine culture grew mixed radha. He was deescalated to CTX and switched to cefdinir today on discharge. Will complete a 7 day course. Also had diarrhea since his last chemo round. Infectious workup benign. Likely from chemo. resolved with imodium which will be continued upon discharge. He adamantly refused SNF placement for rehab. risks of falls d/w patient. home care ordered. vitals and labs are stable on dc home today. updated daughter on phone who agreed with plan #Sepsis -Secondary to UTI -Catheter associated UTI -Initial lactic is 2.6 and repeat is 2 -UA is positive -Has chronic Solis -Has right nephrostomy tubes Plan #Diarrhea -non bloody, POA. 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 -Suspect post renal ANDRE from bladder obstruction from solis misplacement -Solis has been replaced -Cr improving Plan -Continue IVF for today -BMP in AM -Avoid nephrotoxic agents if possible #History of high-grade urothelial carcinoma Involving right ureter with bladder involvement and retroperitoneal lymphadenopathy Currently on Enfortumab and pembrolizumab every 21 days Last dose was on 10/01/2025 Has right nephrostomy tube placement History of hematuria requiring continuous bladder irrigation in past Follows with heme-onc BPH On Proscar #Anemia -Chronic, POA -No blood loss anemia -Hgb down to 10.9 today, suspect dilutional from IVF -Monitor #Thrush On fluconazole Says he does not want to take it If refusing may place him on nystatin swish and swallow #Dyslipidemia On statin Status post left orchiectomy in 2012 for hydrocele DVT prophylaxis SCDs for now Disposition Telemetry CODE STATUS full code if there is chance of recovery as per my discussion with the patient. I spent a total of 45 minutes coordinating, documenting, and providing care for this patient excluding time spent in the performance of separately billed services. 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 He is on fluconazole for thrush and says he has 4 more doses left. His last chemo was on 10/01/2025. Last few days feeling weak. Today was not able to ambulate because of weakness in the legs. Has some diarrhea. No blood in the stools. Appetite is down. Feeling somewhat short of breath. No headache. No cough. No runny nose or sore throat. No chest pain. No abdominal pain. Hemodynamics are okay. Patient lives with his son. Daughter is in the room.His Solis catheter was not in place so it was removed and replaced in the ER. Currently having hematuria. Daughter says he gets hematuria on and off. Past medical history. As mentioned above. Past surgical history. Colonoscopy with biopsy. Cystoscopy. Cystourethroscopy with fulguration for bladder tumor. Cystourethroscopy with biopsy. Dental surgery. Right nephrostomy tube placement. Radical left orchiectomy. Repair inguinal hernia. Umbilical hernia repair. Social history. . Lives with his son. Smoked 1 pack a day for 50 years. No alcohol use. No drug use. Family history. Father had colon cancer. Mother had breast/lymphoma cancer. Brother had heart disorder. Discharge Exam Vitals and labs reviewed General: elderly and chronically ill appearing in NAD HEENT: EOMI, PERRLA Neck: Supple Cardiac: RRR no rubs gallops or murmurs Lungs: CTA no rhonchi wheezing or rales Abd: S NT ND BS positive : Solis. nephro tubes intact without issue MSK: Full ROM. No obvious deformities Ext: No Edema cyanosis Skin: Warm, Dry Neuro: AOx3 No focal deficits. Psych: Normal Mood Updated Medication List Medication Instructions Recorded Confirmed Type atorvastatin 40 mg tablet 40 mg PO QAM 06/07/22 10/08/25 History finasteride 5 mg tablet 5 mg PO QAM 03/20/25 10/08/25 History fluconazole 100 mg tablet 100 mg PO QAM 10/08/25 10/08/25 History lidocaine-prilocaine 2.5 %-2.5 % 1 applic topical UD 10/08/25 10/08/25 History topical cream ondansetron HCl 8 mg tablet 8 mg PO Q8 PRN Nausea 10/08/25 10/08/25 History prochlorperazine maleate 10 mg 10 mg PO Q6 PRN Nausea 10/08/25 10/08/25 History tablet sodium chloride 0.9 % (flush) 10 ml UD 10/08/25 10/08/25 History (Normal Saline Flush 0.9 % injection syringe) cefdinir 300 mg capsule 300 mg PO BID 3 days #6 caps 10/12/25 Rx loperamide 2 mg capsule 4 mg (2 x 2 mg) PO Q8H PRN 10/12/25 Rx diarrhea 10 days #30 caps loperamide 2 mg capsule (Imodium 4 mg (2 x 2 mg) PO Q6H PRN loose 10/12/25 Rx A-D) stool #30 caps Hospital Stay Data Consultations 10/08/25 22:51 ED Decision to Admit Stat 10/09/25 08:00 Consult Urology Routine Diagnostic Imagining Performed 10/08/25 20:52 CT head/brain wo con Stat 10/08/25 21:27 CT abd pelvis wo con Stat Pending Results Patient Have Any Pending Studies at Discharge: No Discharge Instructions Given to Patient (Per Discharging Provider) Please follow up with your primary urologist and oncologist upon discharge. Please f/u with your PCP in 1 week Total Time Total Time Spent Total Time Spent (In Minutes): 45
[2025-10-12 10:12] VITALS: BP 169/73; PULSE 58
== END 2025-10-12 11:48 | disposition home health service (06) | DRG 698 ==
LOC: ED 20:48 → SUATTDRO 10-09 00:14 → EDINP 10-09 00:14 → 4W 10-09 01:32